=== PATIENT | male | born 1965 | race Caucasian/White ===

== ENCOUNTER 2016-05-21 04:46 | Inpatient (IN) | payer OTHER ==
[2016-05-21] MEDS ORDERED: SODIUM CHLORIDE 0.9% 1,000 ML IV ONE (05:20)
[2016-05-21] MEDS ORDERED: IV FLUID CONTINUATION 1,000 ML IV ONE (05:20)
[2016-05-21] MEDS ORDERED: MIDAZOLAM 2 MG/2 ML VIAL ONE (05:33)
[2016-05-21] MEDS ORDERED: LIDOCAINE 2% INJ 20 MG/ML (20 ML MDV) ONE (05:33)
[2016-05-21] MEDS ORDERED: diphenhydrAMINE 50 MG/ML 1 ML VIAL ONE (05:34)
[2016-05-21] MEDS ORDERED: diphenhydrAMINE 50 MG/ML 1 ML VIAL IVP ONE (05:36)
[2016-05-21] MEDS ORDERED: fentaNYL (PF) 50 MCG/ML 2 ML AMP ONE (05:36)
[2016-05-21] MEDS ORDERED: LIDOCAINE 2% INJ 20 MG/ML SQ ONE (05:37)
[2016-05-21] MEDS ORDERED: fentaNYL (PF) 50 MCG/ML 2 ML AMP IV ONE (05:37)
[2016-05-21] MEDS ORDERED: BIVALIRUDIN BOLUS 250 MG/50 ML IV ONE (05:42)
[2016-05-21] MEDS ORDERED: BIVALIRUDIN 250 MG in SODIUM CHLORIDE 0.9% 50 ML IV ONE (05:43)
[2016-05-21] MEDS ORDERED: PRASUGREL 10 MG TAB ONE (05:45)
[2016-05-21] MEDS ORDERED: PRASUGREL 10 MG TAB PO ONE (05:46)
[2016-05-21] MEDS ORDERED: IOHEXOL 350 MG/ML 100 ML BOTTLE INJ ONE (06:13)
[2016-05-21] MEDS ORDERED: NITROGLYCERIN SL TABS 0.4 MG TAB SUBLINGUAL PRN (06:38)
[2016-05-21] MEDS ORDERED: ZOLPIDEM 5 MG TAB PO PRN (06:38)
[2016-05-21] MEDS ORDERED: MAG HYDROX/AL HYDROX/SIMETH 30 ML CUP PO PRN (06:38)
[2016-05-21] MEDS ORDERED: RX INFO: IV CONTRAST WAS GIVEN 1 EACH MISC MISCELLANE PRN (06:38)
[2016-05-21] MEDS ORDERED: SODIUM CHLORIDE 0.9% 1,000 ML IV SCH (06:45)
[2016-05-21] MEDS ORDERED: LIDOCAINE URO-JET JELLY 2% 5 ML KIT ONE (07:40)
[2016-05-21 08:04] LABS: Glucose,Whole Blood 103 mg/dL (75-99)
[2016-05-21 09:10] LABS: Anion Gap 13 mmol/L; Blood Urea Nitrogen 7 mg/dL (9-20); Calcium 8.9 mg/dL (8.4-10.2); Carbon Dioxide 21 mmol/L (22-30); Chloride 109 mmol/L (98-107); Glucose 126 mg/dL (74-99); Non-African American GFR(MDRD) >60 (>60 ml/min/1.73 sqM); Potassium 4.1 mmol/L (3.5-5.1); Sodium 143 mmol/L (137-145)
[2016-05-21 09:29] LABS: Basophils % (A) 0 %; CH 30.9; CHCM 33.6; Eosinophils # (A) 0.1 k/uL (0-0.7); Eosinophils % (A) 1 %; HDW 2.71; HGB 17.1 gm/dL (13.0-17.5); Luc # (Auto) 0.16; Luc % (Auto) 2; Lymphocytes # (A) 2.2 k/uL (1.0-4.8); Lymphocytes % (A) 21 %; MCHC 33.5 g/dL (31.0-37.0); MCV 92.4 fL (80.0-100.0); Mean Platelet Volume 6.6; Monocytes # (A) 0.4 k/uL (0-1.0); Monocytes % (A) 3 %; Neutrophils # (A) 7.4 k/uL (1.3-7.7); Neutrophils % (A) 72 %; RBC 5.52 m/uL (4.30-5.90); RDW 14.3 % (11.5-15.5); WBC 10.3 k/uL (3.8-10.6); WBC (Perox) 10.52
[2016-05-21] MEDS: NICOTINE 21MG/24HR PATCH TRANSDERM SCH (11:17)
[2016-05-21] MEDS: METOPROLOL TARTRATE 25 MG TAB PO SCH ×2 (11:18→20:02)
[2016-05-21] MEDS: SPIRONOLACTONE 25 MG TAB PO SCH (11:18)
[2016-05-21] MEDS: LISINOPRIL 5 MG TAB PO SCH (11:18)
[2016-05-21] MEDS: ASPIRIN 325 MG TAB PO SCH (11:18)
--- NOTE | 2016-05-21 16:08 | CONS ---
DATE OF CONSULTATION: Mr. Ross is a 51-year-old male with known history of chronic tobacco use, history of hypertension and noncompliance who presented to the emergency room at [facility] with an episode of chest discomfort. Initially his EKG shows T wave inversion, subsequently had significant ST segment elevation anteriorly. In view of that, he was transferred to the hospital at [facility] to undergo emergent cardiac catheterization, coronary angioplasty and stenting. The patient has been having pain on and off for 4 days, much worse last night. He has associated dyspnea. He has no prior history of cardiac disease although he has not been followed by physician on a regular basis. He denies any PND, orthopnea or dizziness. No syncope. No palpitation. His coronary risk factors are remarkable for history of chronic tobacco use, prior history of hypertension, family history of premature coronary disease. He is nondiabetic. His lipid profile is not available. MEDICATION: He is taking no medication at home. SOCIAL HISTORY: He drinks caffeine, he smokes a pack a day. No alcohol intake. REVIEW OF SYSTEMS: RESPIRATORY SYSTEM: He denies any recent wheezing, cough. No history of documented asthma, emphysema GI system: No recent GI bleeding. No peptic ulcer disease. system: No dysuria or hematuria. Nervous system: No history of stroke or seizure. PHYSICAL EXAMINATION: He is a 51-year-old male, alert, oriented, in mild discomfort. Evaluated in the cardiac bundle tier and labeler. Blood pressure 143/90 with a heart rate in the 70s. HEAD: Normocephalic. EYES: Sclerae anicteric. NECK: No bruit. LUNGS: Clear to auscultation anteriorly. HEART: Regular rate and rhythm. S1, S2, no S3 with no rub or gallop. ABDOMEN: Soft, nontender, positive bowel sounds. No organomegaly. EXTREMITIES: No edema. Intact distal pulses. LAB DATA: Initial EKG at [facility] revealed sinus mechanism with left ventricular hypertrophy and T wave inversion from lead V2 through V6. Subsequent EKG showed significant ST segment elevation in the anterolateral leads. Potassium of 3.4. BUN and creatinine of 11 and 0.8. Hemoglobin of 17.7. Troponin of 0.350. IMPRESSION: 1. Acute ST segment elevation anteriorly. 2. History of chronic tobacco use. 3. Hypertension, not treated at this time. 4. Family history of premature coronary disease. RECOMMENDATION: In view of the findings and anatomy, I have recommended proceeding with coronary angiography and angioplasty and stenting if indicated. The rationale behind the procedure as well as risks and complications were discussed with the patient who is in full understanding and agreement. Thank you for this consult. We will follow with you
--- NOTE | 2016-05-21 18:24 | HP ---
DATE OF ADMISSION: CHIEF COMPLAINT: Chest pain. HISTORY OF PRESENT ILLNESS: This is a 51-year-old male with past medical history significant for uncontrolled hypertension, uncontrolled hyperlipidemia, ongoing tobacco abuse and history of heavy alcoholism a long time ago, presents to the hospital with new onset chest pain. Patient described the chest pain located to the mediastinum radiating to his left arm. Patient in the emergency was evaluated immediately with EKG which showed ST elevation. Dr. Montemayor was notified and patient was transferred from [facility] to [facility] and underwent immediate cardiac catheterization which showed 99% stenosis to the LAD and multivessel disease, LAD felt to be the culprit vessel and was stented by Dr. Montemayor and patient was transferred to the intensive care unit. Currently, the patient is denying chest pain, shortness breath, nausea, vomiting, abdominal pain, dizziness, lightheadedness, or blurry vision. Patient said that he has been away from the doctors for more than 5 years due to a lack of insurance. He is well known to have history of hypertension, hyperlipidemia, and was prescribed medication but he never took any medication or followed up with the doctors. The patient is well known to smoke more than 1 pack per day for a long time since age 16. Used to drink heavily every day and quit 5 years ago. Still smoking marijuana. Patient with well known family history of coronary artery disease in father, mother, brother and sister and they all had heart attacks according to his story. REVIEW OF SYSTEMS: All 14 systems reviewed and negative except as above. PAST MEDICAL HISTORY: 1. Hypertension. 2. Hyperlipidemia. 3. Tobacco dependency. 4. Diverticulosis. PAST SURGICAL HISTORY: None. FAMILY HISTORY: Father, mother, brother and sister with history of coronary artery disease. SOCIAL HISTORY: Smokes more than 1 pack per day. Smokes marijuana on every day basis. History of alcoholism, quit 5 years ago. HOME MEDICATIONS: None. ALLERGIES: No known drug allergies. PHYSICAL EXAMINATION: VITAL SIGNS: Currently temperature 97.9, heart rate of 82, respiratory rate 24, blood pressure 164/96 and saturation is 98% on 2 liters nasal cannula. HEENT: Atraumatic, normocephalic. PERRLA. NECK: Supple, no masses. No thyromegaly. LUNGS: Clear to auscultation bilaterally. HEART: S1, S2. ABDOMEN: Soft, no tenderness, positive bowel sounds in all 4 quadrants. Right groin seems to be intact after operation. EXTREMITIES: Lower extremity no edema. GENERAL: Seems to be, relaxed in no acute distress. Imaging and labs: As mentioned above including EKG and the troponin is slightly elevated at 0.867. Normal CBC. ASSESSMENT AND PLAN: 1. ST elevation myocardial infarction, status post cardiac catheterization with stent to the LAD. We will continue aspirin, Effient, beta eric and statin and optimize his medical management. 2. Hyperlipidemia. Will check on his LDL in the morning and continue statin. 3. Hypertension. Will optimize his medical management and goal is blood pressure less than 140/90. 4. Tobacco dependency. Patient counseled regarding smoking cessation strongly and he is agreeable and he wants to quit cold turkey. We will start nicotine patch now. 5. Marijuana abuse. Patient counseled regarding that and he is willing to quit as well. Patient counseled regarding following up with primary care physician outpatient for appropriate age screening and other work-up that needs to be done on outpatient. Prognosis is guarded. Systolic congestive heart failure with ejection for fraction of 40%. Patient will need multiple stage stenting and that will be determined by cardiology either inpatient or outpatient based on clinical progress.
--- NOTE | 2016-05-21 18:39 | CC ---
DATE OF SERVICE: Mr. Ross is a 51-year-old male who presented to the emergency room at [facility] with chest pain and had elevated elevation of his ST segment in the anterior leads. He was transferred to [facility] to undergo cardiac catheterization. The rationale behind the procedure as well as risks and complications were discussed with the patient who is in full understanding and agreement. PROCEDURE: Patient was brought to denture laboratory technician after receiving fentanyl and Benadryl. He was draped and prepped in conventional fashion using Xylocaine anesthesia and Seldinger technique, a 6 [place] Island[place] sheath was introduced in right femoral artery. Selective right and left coronary angiography were performed using 6 [place] Island[place], 4 bend FL4 guiding catheter. After obtaining images of the left coronary system and proceeding with angioplasty and stenting of the LAD, a 6 [place] right Anthony catheter was used to cannulate the right coronary artery. Images of the right coronary artery were performed. Following that, a 6 [place] tight pigtail catheter was introduced into the left ventricle and a 30 degree SPICER view of the left ventricle was obtained. Following that, catheter and sheath was removed. Hemostasis was obtained with deployment of an Angio-Seal. There was no immediate complications. Patient is returned to his room in stable condition. FINDINGS: LEFT MAIN: This is a large-size vessel bifurcating into the left circumflex, left anterior descending artery, left main coronary artery has no evidence of high-grade stenosis. LEFT ANTERIOR DESCENDING CORONARY ARTERY: Left anterior descending artery: This is a large-size vessel reaching toward the apex with a wrap around the apex segment giving rise to two diagonal branches of small caliber shortly after the takeoff of the first septal [facility] assisted [facility]. There is a very complex lesion with area stenosis of 99%. There is another plaque at the take off of the second diagonal branch and intimal disease of 30% to 40% in the mid and distal segment. LEFT CIRCUMFLEX: This is a large nondominant vessel, giving rise to 2 obtuse marginal branches. After the takeoff of the first obtuse marginal branch, there is a 60 70% plaque. The rest of the vessel has no high-grade stenosis. RIGHT CORONARY ARTERY: This is a dominant vessel, large in caliber, bifurcating distally in the PDA and posterolateral segment and branches. The right coronary artery is diffusely diseased, ectatic in the mid segment. In the distal segment, it is quite ectatic with diffuse lesion prior to the bifurcation of the PDA and PLV. There is a 99% stenosis. The PDA and PLV are small in caliber without any evidence of focal high-grade stenosis. LEFT VENTRICULOGRAM: Left ventriculogram was performed in 30 degrees SPICER view and revealed normal left ventricle size with anteroapical akinesis. The ejection fraction of 35% to 40%. There was no significant mitral regurgitation. HEMODYNAMICS: There was no gradient across the aortic valve. The left ventricular end-diastolic pressure was 24 to 28 mmHg. CONCLUSION: 1. Critical stenosis involving the proximal left anterior descending artery. 2. Significant stenosis in the distal right coronary artery with diffuse intimal disease as well as significant disease in the mid left circumflex. 3. Moderate to severely impaired left ventricular systolic function. RECOMMENDATIONS: In view of the findings and anatomy, I have recommended proceeding with angioplasty and stenting of the LAD. The rationale behind the procedure as well as risks and complications were discussed with the patient who is in full understanding and agreement.
--- NOTE | 2016-05-21 19:00 | CC ---
DATE OF SERVICE: Mr. Ross is a 51-year-old male with a known history of coronary artery disease, who presented with an acute anterior wall myocardial infarction. Underwent cardiac catheterization, was found to have critical stenosis involving the proximal left anterior scene artery. In view of that, recommendation was made regarding angioplasty and stenting. The procedure as well as risks and complications were discussed with the patient, in full understanding and agreement. PROCEDURE: Using the 6 Romansh FR4 guiding catheter after cannulating the left main, a 0.014 BMW wire was advanced across the lesion, positioned distally, then a 2.5 x 12 mm Trek balloon was advanced and one inflation 8 at 10 atmospheres was done. Following that the balloon was removed and a 3.0 by x 15 mm Resolute Integrity stent was deployed, was dilated at 14 atmospheres. Following that the balloon was removed and a 2.5 x 18 mm Xience Alpine stent was advanced distal to the first stent and deployed and was dilated at 14 atmospheres. Following that an inflation in the overlap segment at 16 atmospheres was done. Following that, the balloon was withdrawn back in the guiding catheter. Images were obtained and repeated. Those images reveal stable successful stenting. At that point, the guiding catheter taken out and the balloon and guidewire removed. Images of the right coronary artery and left ventriculogram was performed. Following that, catheter and sheaths were removed. Hemostasis was obtained with cuff and Angio-Seal. There were no immediate complication. Patient is returned to his room in stable condition. Of note, the patient had chest discomfort and EKG changes with inflations that improved at the end of the procedure. He received Angiomax per protocol as well as oral loading dose of Effient. RESULT: Successful stenting of the proximal left anterior descending artery with reduction in stenosis from 99% to 0%. RECOMMENDATIONS: Patient will be continued on aspirin, Effient, beta eric, CHRISTOFER inhibitor and statin. The importance of dual antiplatelet treatment were discussed with the patient and his family and they are in full consent and agreement. He will need to be re-evaluated regarding the need to undergo revascularization of the right coronary artery and the left circumflex. . EUGENIE
--- NOTE | 2016-05-21 19:05 | LTR ---
May 21, 2016 RE: Cody Ramírez Dear Dr. Lora: I had the pleasure to perform cardiac catheterization, coronary angioplasty and stenting on Mr. Ross at [facility] on the 21 of May. A full copy of the procedure note will be forwarded to you. In brief, he was found to have a subtotal occluded proximal LAD and underwent successful stenting of that vessel using 2 drug eluding stents. At the same time he was found to have significant obstructive disease involving the left circumflex and the right coronary artery and he will be further evaluated to undergo staged angioplasty. At this time I would recommend to continue medical therapy with dual antiplatelet treatment and depending on his progress, further recommendations will be made. Thank you again for allowing me to participate in this man's care . Please feel free to call for any questions. Sincerely, ELISABETH JOYNER MD
[2016-05-21] MEDS: ATORVASTATIN 80 MG TAB PO SCH (20:02)
[2016-05-22 07:56] LABS: Anion Gap 11 mmol/L; Blood Urea Nitrogen 8 mg/dL (9-20); Calcium 9.1 mg/dL (8.4-10.2); Carbon Dioxide 24 mmol/L (22-30); Chloride 107 mmol/L (98-107); Cholesterol 246 mg/dL (<200); Glucose 86 mg/dL (74-99); HDL Cholesterol 39 mg/dL (40-60); Non-African American GFR(MDRD) >60 (>60 ml/min/1.73 sqM); Potassium 4.2 mmol/L (3.5-5.1); Sodium 142 mmol/L (137-145); Triglycerides 157 mg/dL (<150)
[2016-05-22] MEDS: NICOTINE 21MG/24HR PATCH TRANSDERM SCH (09:25)
[2016-05-22] MEDS: METOPROLOL TARTRATE 25 MG TAB PO SCH ×2 (09:25→20:32)
[2016-05-22] MEDS: LISINOPRIL 5 MG TAB PO SCH (09:25)
[2016-05-22] MEDS: ASPIRIN 325 MG TAB PO SCH (09:25)
[2016-05-22] MEDS: PRASUGREL 10 MG TAB PO SCH (09:26)
[2016-05-22] MEDS: SPIRONOLACTONE 25 MG TAB PO SCH (09:26)
[2016-05-22 12:07] LABS: Glucose,Whole Blood 100 mg/dL (75-99)
--- NOTE | 2016-05-22 16:08 | PN ---
INTERVAL HISTORY: Patient continues to be hemodynamically stable overnight. No major events reported by nursing staff. Patient said that he feels much better than yesterday. Denying any chest pain, shortness breath, nausea, vomiting, abdominal pain, dizziness, or lightheadedness. Patient was ambulating in the room on his own. Tolerating diet without difficulty. PHYSICAL EXAMINATION: VITAL SIGNS: Reviewed and stable. LUNGS: Clear to auscultation bilaterally. HEART: Normal S1, S2. ABDOMEN: Soft, nontender. Positive bowel sounds in all four quadrants. EXTREMITIES: Lower extremity no edema. PSYCH: Alert, oriented x3. NEURO: No focal deficit. RIGHT GROIN: Seems to be healing with mild bruising. IMAGING AND LABS: Chem-7 showed normal findings. Troponin has gone up to 4.6 then found at 5.4. Lipid panel showed triglyceride 157, cholesterol 247, LDL 176, and HDL 39. ASSESSMENT AND PLAN: 1. ST elevation myocardial infarction, status post cardiac catheterization with stent to the left anterior descending with diffuse vessel disease. I discussed the case with Dr. Montemayor and later with the patient where the patient had reduced ejection fraction and felt to be good candidate for multistage stenting. The patient is agreeable. We will defer the final decision to Dr. Montemayor. Will continue cardioprotective medication as patient currently on aspirin, Effient, beta eric and statin. Blood pressure currently under control. The patient will be monitored closely. 2. Hyperlipidemia. We will continue with high-efficiency statin. Patient counseled regarding diet adherence and medication adherence as well. 3. Hypertension, fair control. We will continue current medication and goal for blood pressure less than 140/90. 4. Tobacco dependency. Patient said that he is not smoking this year and the rest of his life. 5. Systolic congestive heart failure, likely related to ischemic process. Stage stenting per Dr. Montemayor and we will repeat 2-D echo in 6 weeks. 6. Discharge planning based on clinical progress.
--- NOTE | 2016-05-22 16:29 | PN ---
Mr. Ross is a 51-year-old male who presented with acute anterior wall myocardial infarction, underwent stenting of the LAD was found to have significant disease in the right coronary artery in the left circumflex. He is doing quite well this morning. He has no symptoms of chest pain. His breathing has been stable. He denies any dizziness, palpitation. He denies any nausea. He continues to be at this time on aspirin once a day, Effient 10 mg daily, Lipitor 80 mg daily, Lisinopril 5 mg daily, metoprolol tartrate 25 mg twice a day, Aldactone 25 mg daily. PHYSICAL EXAMINATION: Blood pressure 128/60 with a heart in the 80s. LUNGS: Clear. HEART: Regular rate and rhythm. S1, S2, no S3, no rub. ABDOMEN: Soft, nontender. RIGHT GROIN: No hematoma. Lab data revealed a troponin peak of 5.4. BUN and creatinine of 8 and 1.1. Potassium 4.2. His cholesterol is 246 with an LDL of 176. EKG revealed sinus mechanism with T wave inversion anteriorly. IMPRESSION: 1. Status post inferior wall myocardial infarction and stenting of the left anterior descending. 2. Hyperlipidemia. 3. Ischemic cardiomyopathy. 4. Triple vessel coronary artery disease. 5. Chronic tobacco use. RECOMMENDATION: Will continue present therapy. Increase his level of activity and depending on his progress he will require revascularization of his right coronary artery, probably it will 48 hours. I have discussed those recommendations with the patient.
[2016-05-22] MEDS: ATORVASTATIN 80 MG TAB PO SCH (20:32)
[2016-05-22 20:59] LABS: Glucose,Whole Blood 122 mg/dL (75-99)
[2016-05-23 06:46] LABS: Anion Gap 11 mmol/L; Blood Urea Nitrogen 11 mg/dL (9-20); Calcium 9.1 mg/dL (8.4-10.2); Carbon Dioxide 23 mmol/L (22-30); Chloride 107 mmol/L (98-107); Glucose 94 mg/dL (74-99); Non-African American GFR(MDRD) >60 (>60 ml/min/1.73 sqM); Potassium 4.1 mmol/L (3.5-5.1); Sodium 141 mmol/L (137-145)
[2016-05-23] MEDS: NICOTINE 21MG/24HR PATCH TRANSDERM SCH (09:31)
[2016-05-23] MEDS: ASPIRIN 325 MG TAB PO SCH (09:31)
[2016-05-23] MEDS: PRASUGREL 10 MG TAB PO SCH (09:32)
[2016-05-23] MEDS: LISINOPRIL 5 MG TAB PO SCH (09:32)
[2016-05-23] MEDS: METOPROLOL TARTRATE 25 MG TAB PO SCH ×2 (09:32→20:47)
[2016-05-23] MEDS: SPIRONOLACTONE 25 MG TAB PO SCH (09:32)
[2016-05-23] MEDS ORDERED: LISINOPRIL 5 MG TAB PO ONE (09:45)
[2016-05-23] MEDS ORDERED: NITROGLYCERIN SL TABS 0.4 MG TAB SUBLINGUAL PRN (10:56)
[2016-05-23] MEDS ORDERED: SODIUM CHLORIDE 0.9% 1,000 ML in EMPTY BAG 1 BAG IV ONE (10:56)
[2016-05-23] MEDS ORDERED: ALPRAZolam 0.5 MG TAB PO PRN (10:56)
[2016-05-23] MEDS ORDERED: ASPIRIN 325 MG TAB PO STA (10:56)
[2016-05-23] MEDS ORDERED: ALPRAZolam 0.25 MG TAB PO PRN (10:56)
[2016-05-23] MEDS ORDERED: ATORVASTATIN 80 MG TAB PO STA (10:56)
--- NOTE | 2016-05-23 20:04 | PN ---
Mr. Ross is a 51-year-old male who presented with an acute anterior myocardial infarction, underwent stenting of the LAD, was found to have significant obstructive disease in the right coronary artery. He is doing well this morning. He is denying any chest pain. His breathing is stable. He denies any dizziness. No palpitation. No nausea. He is ambulating without difficulty. Continued on aspirin once a day, Lipitor 80 mg daily, Zestril 10 mg daily, metoprolol titrate 25 mg twice a day, Effient 10 mg daily, Aldactone 25 mg daily. PHYSICAL EXAMINATION: Blood pressure 132/80 with a heart in the 70s. LUNGS: Clear. HEART: Regular rate and rhythm. S1, S2, no S3, no rub. ABDOMEN: Soft, nontender. EXTREMITIES: No edema. Lab data revealed BUN and creatinine 11 and 0.9. Potassium 4.1. IMPRESSION: 1. Status post anterior myocardial infarction and stenting of the left anterior descending. 2. Significant obstructive disease in the right coronary artery. 3. Hypertension. 4. Hyperlipidemia. 5. Chronic tobacco use. RECOMMENDATIONS: Will continue current therapy. Proceed with an angioplasty of the right coronary artery tomorrow and depending on his progress, further recommendation will be made.
[2016-05-23] MEDS: ATORVASTATIN 80 MG TAB PO SCH (20:47)
[2016-05-24] MEDS: METOPROLOL TARTRATE 25 MG TAB PO SCH ×2 (06:35→21:47)
[2016-05-24] MEDS: ASPIRIN 325 MG TAB PO SCH (06:35)
[2016-05-24] MEDS: NICOTINE 21MG/24HR PATCH TRANSDERM SCH (06:36)
[2016-05-24] MEDS: LISINOPRIL 10 MG TAB PO SCH (06:36)
[2016-05-24] MEDS: PRASUGREL 10 MG TAB PO SCH (06:36)
--- NOTE | 2016-05-24 07:15 | PN ---
INTERVAL HISTORY: Patient continued to be hemodynamically stable, no major events reported by nursing staff. Patient currently is denying chest pain, shortness breath, nausea, vomiting, dizziness, lightheadedness, or blurry vision. PHYSICAL EXAMINATION: Vital signs are reviewed and stable. Lungs clear to auscultation bilaterally. HEART: S1, S2. ABDOMEN: Soft, nontender, positive bowel sounds in upper quadrant. LOWER EXTREMITIES: No edema. PSYCH: Alert and oriented x3. IMAGING AND LABS: Chem-7 revealed normal findings, glucose 122. Hemoglobin A1c was found to be 5.0. ASSESSMENT AND PLAN: 1. ST elevation myocardial infarction positive for severe multivessel disease. Patient will be continued on aspirin and statin and beta eric and will undergo another cardiac catheterization in the morning by Dr. Montemayor for stage stenting. Patient is agreeable, understands risks and benefits and willing to take the procedure. 2. Systolic congestive heart failure with ejection fraction of 40%. Patient seems to be compensated at this point. Will continue cardioprotective medication as above. 3. Hypertension, slightly elevated. I would like to increase the lisinopril to 10 mg p.o. daily, give second dose of lisinopril 5 now and 10 mg in the morning. Discussed with Dr. Montemayor this morning. 4. Hyperlipidemia, continue statin. 5. Tobacco dependency. Continue counseling patient regarding cessation. 6. Discharge planning based on clinical progress.
[2016-05-24] MEDS ORDERED: LIDOCAINE 2% INJ 20 MG/ML (20 ML MDV) ONE ×2 (07:21→07:57)
[2016-05-24] MEDS ORDERED: fentaNYL (PF) 50 MCG/ML 2 ML AMP ONE (07:21)
[2016-05-24] MEDS ORDERED: diphenhydrAMINE 50 MG/ML 1 ML VIAL ONE (07:21)
[2016-05-24] MEDS ORDERED: SODIUM CHLORIDE 0.9% (PF) 10 ML VIAL ONE (07:38)
[2016-05-24] MEDS ORDERED: VERAPAMIL 2.5 MG/ML 2 ML AMP ONE (07:38)
[2016-05-24] MEDS ORDERED: SODIUM CHLORIDE 0.9% 1,000 ML IV ONE (07:45)
[2016-05-24] MEDS ORDERED: diphenhydrAMINE 50 MG/ML 1 ML VIAL IVP ONE (07:46)
[2016-05-24] MEDS ORDERED: fentaNYL (PF) 50 MCG/ML 2 ML AMP IV ONE (07:47)
[2016-05-24] MEDS ORDERED: LIDOCAINE 2% INJ 20 MG/ML SQ ONE ×2 (07:48→07:57)
[2016-05-24] MEDS ORDERED: NITROGLYCERIN SL TABS 0.4 MG TAB SUBLINGUAL ONE ×2 (07:52→07:53)
[2016-05-24] MEDS ORDERED: BIVALIRUDIN BOLUS 250 MG/50 ML IV ONE (07:59)
[2016-05-24] MEDS ORDERED: BIVALIRUDIN 250 MG in SODIUM CHLORIDE 0.9% 50 ML IV ONE (08:01)
[2016-05-24] MEDS ORDERED: NITROGLYCERIN 1000MCG/10ML SYRINGE INTRACORON ONE (08:05)
[2016-05-24] MEDS ORDERED: IOHEXOL 350 MG/ML 100 ML BOTTLE INJ ONE (08:24)
[2016-05-24] MEDS ORDERED: MAG HYDROX/AL HYDROX/SIMETH 30 ML CUP PO PRN (08:26)
[2016-05-24] MEDS ORDERED: RX INFO: IV CONTRAST WAS GIVEN 1 EACH MISC MISCELLANE PRN (08:26)
[2016-05-24] MEDS ORDERED: ZOLPIDEM 5 MG TAB PO PRN (08:26)
[2016-05-24] MEDS ORDERED: NITROGLYCERIN SL TABS 0.4 MG TAB SUBLINGUAL PRN (08:26)
[2016-05-24] MEDS ORDERED: SODIUM CHLORIDE 0.9% 1,000 ML IV SCH (08:30)
[2016-05-24] MEDS: SPIRONOLACTONE 25 MG TAB PO SCH (08:56)
[2016-05-24] MEDS: amLODIPine 5 MG TAB PO STA ×2 (09:56→09:57)
[2016-05-24] MEDS ORDERED: ATROPINE SULFATE 0.1 MG/ML 10ML SYRINGE ONE (11:27)
[2016-05-24] MEDS ORDERED: METOPROLOL TARTRATE 5 MG/5 ML VIAL IVP STA (11:33)
--- NOTE | 2016-05-24 11:34 | ECHOF ---
Referral Reason:nv MEASUREMENTS -------- HEIGHT: 172.7 cm WEIGHT: 82.1 kg BP: 172/96 RVIDd: 3.3 cm (< 3.3) IVSd: 1.4 cm (0.6 - 1.1) LVIDd: 5.8 cm (3.9 - 5.3) LVPWd: 1.2 cm (0.6 - 1.1) IVSs: 1.7 cm LVIDs: 4.2 cm LVPWs: 1.8 cm LA Diam: 3.8 cm (2.7 - 3.8) LAESV Index (A-L): 26.93 ml/m Ao Diam: 3.8 cm (2.0 - 3.7) AV Cusp: 2.2 cm (1.5 - 2.6) MV EXCURSION: 12.148 mm (> 18.000) MV EF SLOPE: 70 mm/s (70 - 150) EPSS: 1.0 cm MV E Perry: 0.84 m/s MV DecT: 194 ms MV A Perry: 0.76 m/s MV E/A Ratio: 1.10 FINDINGS -------- Sinus rhythm. This was a technically good study. The left ventricular size is normal. There is moderate concentric left ventricular hypertrophy. Overall left ventricular systolic function is mild-moderately impaired with, an EF between 40 - 45 %. Apical inferior LV wall motion is hypokinetic. Apical septum LV wall motion is hypokinetic. The right ventricle is mildly enlarged. The left atrium is normal in size. Normal LA size by volume 22+/-6 ml/m2. The right atrium is normal in size. The aortic valve is trileaflet, and appears structurally normal. No aortic stenosis or regurgitation. Mild mitral annular calcification present. The tricuspid valve appears structurally normal. No regurgitation noted The pulmonic valve is normal. There is no pulmonic regurgitation present. The aortic root is dilated measuring 3.8cm. Normal inferior vena cava with normal inspiratory collapse consistent with estimated right atrial pressure of 5 mmHg. There is no pericardial effusion. CONCLUSIONS -------- 1. Sinus rhythm. 2. The right atrium is normal in size. 3. The aortic valve is trileaflet, and appears structurally normal. No aortic stenosis or regurgitation. 4. Mild mitral annular calcification present. 5. The pulmonic valve is normal. 6. The aortic root is dilated measuring 3.8cm. 7. Normal inferior vena cava with normal inspiratory collapse consistent with estimated right atrial pressure of 5 mmHg. 8. There is no pericardial effusion. 9. This was a technically good study. 10. The left ventricular size is normal. 11. There is moderate concentric left ventricular hypertrophy. 12. Overall left ventricular systolic function is mild-moderately impaired with, an EF between 40 - 45 %. 13. Apical inferior LV wall motion is hypokinetic. 14. Apical septum LV wall motion is hypokinetic. 15. The right ventricle is mildly enlarged. 16. Normal LA size by volume 22+/-6 ml/m2. DELIVERY DRIVER/CUSTOMER SERVICE: Yojana Lai RDCS
[2016-05-24] MEDS ORDERED: HYDROmorphone 1 MG/ML 1 ML SYRINGE IVP STA ×2 (11:39→15:13)
--- NOTE | 2016-05-24 15:23 | PTCA ---
DATE OF SERVICE: Mr. Ross is a 51-year-old male with known history of chronic tobacco use, who presented 3 days ago with an acute anterior myocardial infarction, underwent cardiac catheterization, coronary angioplasty and stenting of the LAD. At that time was found to have critical stenosis involving the distal right coronary artery and his diffusely ectatic vessel. In view of that, recommendation was made regarding angioplasty and stenting. The procedure as well as risks and complications were discussed with the patient who was in full understanding and agreement. PROCEDURE: Patient was brought to the [facility] in fasting semi state after fentanyl and Benadryl. He was draped and prepped in conventional fashion. Using Xylocaine anesthesia and Seldinger technique, a 6 Bahamian sheath was introduced in left femoral artery. A 6 Bahamian 4 bend left Anthony catheter introduced into the system. Images of the left anterior descending artery were performed. Following that, a 6 Bahamian FR4 guiding catheter introduced into the system. After cannulating the right coronary ostium, a 0.014 balanced medium weight J-wire was advanced across the lesion, positioned distally. Then a 2.5 x 12 mm Euphora balloon was advanced, one inflation 10 atmosphere was done. Following that, a 2.5 x 15 mm Xience Alpine stent was deployed, postdilated at 14 atmospheres. After the last inflation, after appropriate wait, the balloon the guidewire were withdrawn back in the guiding catheter. Images were obtained and repeated. Those images reveal stable successful stenting. At that point, the guiding catheter, balloon and the guidewire wire were removed. The sheaths were sutured in place. The patient is returned to his room in stable condition. Of note, the patient had no significant chest discomfort with the inflation with minimal EKG changes. He received Angiomax per protocol. RESULTS: 1. Patent stent of the left anterior descending. 2. Moderate disease in the second obtuse marginal branch of 50%. 3. Successful stenting of the distal right coronary artery in a diffusely ectatic vessel with reduction in stenosis from 99% to 0%. RECOMMENDATION: Patient will be continued on aspirin, Effient, beta eric, CHRISTOFER inhibitor and statin. The importance of dual antiplatelet treatment were discussed with the patient and his family who are in full understanding and agreement.
--- NOTE | 2016-05-24 15:27 | LTR ---
May 24, 2016 RE: Ramírez Ross Dear Dr. Lora: I had the pleasure of performing coronary angioplasty and stenting on Mr. Ross at [facility] on May 24, 2016 and full copy of procedure note will be forwarded to you. In brief, he underwent successful stenting of the distal right coronary artery using a drug-eluting stent. At this time I will continue present medical therapy with aggressive risk modification being initiated. Thank you again for allowing me to participate in his care. Please feel free to call for any questions. Sincerely, ELISABETH JOYNER MD
[2016-05-24] MEDS ORDERED: CALCIUM CARBONATE 500 MG CHEWABLE PO PRN (19:20)
[2016-05-24] MEDS: ATORVASTATIN 80 MG TAB PO SCH (21:47)
[2016-05-25 04:49] VITALS: PULSE 80; RESP 18; TEMP 97.2
[2016-05-25 06:45] LABS: Anion Gap 12 mmol/L; Blood Urea Nitrogen 8 mg/dL (9-20); Carbon Dioxide 24 mmol/L (22-30); Chloride 106 mmol/L (98-107); Glucose 88 mg/dL (74-99); Non-African American GFR(MDRD) >60 (>60 ml/min/1.73 sqM); Potassium 4.3 mmol/L (3.5-5.1); Sodium 142 mmol/L (137-145)
--- NOTE | 2016-05-25 07:09 | PN ---
INTERVAL HISTORY: Ramírez had just come back from the [facility] after receiving stent to the RCA. Patient currently is denying chest pain, shortness of breath, nausea, vomiting, abdominal pain, dizziness, lightheadedness but still is lethargic after the conscious sedation. Physical examination revealed stable vital signs. LUNGS: Clear to auscultation bilaterally. HEART: S1, S2. ABDOMEN: Soft, nontender, positive bowel sounds in the left lower quadrant. LOWER EXTREMITY: No edema. IMAGING AND LABS: Reviewed. ASSESSMENT AND PLAN: 1. ST elevation myocardial infarction, status post cardiac catheterization with stent placement. 2. Multivessel coronary artery disease with staged stenting, second stent placed today by Dr. Montemayor. Patient will be monitored over the next 24 hours. If patient stated to be hemodynamically stable, consider discharging patient in the morning. Patient will be maintained on aspirin, Effient, beta eric and statin. 3. Hypertension, appears to be under fair control. 4. Hyperlipidemia. Will continue statin.
[2016-05-25] MEDS: NICOTINE 21MG/24HR PATCH TRANSDERM SCH (08:17)
[2016-05-25] MEDS: METOPROLOL TARTRATE 25 MG TAB PO SCH (08:17)
[2016-05-25] MEDS: SPIRONOLACTONE 25 MG TAB PO SCH (08:17)
[2016-05-25] MEDS: LISINOPRIL 10 MG TAB PO SCH (08:17)
[2016-05-25] MEDS: ASPIRIN 325 MG TAB PO SCH (08:17)
[2016-05-25] MEDS: PRASUGREL 10 MG TAB PO SCH (08:28)
[2016-05-25 09:12] VITALS: BP 155/92
--- NOTE | 2016-05-25 16:57 | PN ---
Mr. Ross is a 51-year-old male who presented with an acute antral wall myocardial infarction, underwent stenting of the LAD, was found to have significant obstructive disease in right coronary artery and underwent stenting of the right coronary artery in a staged procedure. He is doing well this morning, ambulating without difficulty. Denies any chest pain. His breathing has been stable. He denies any dizziness or palpitation. No nausea. He continues to be on aspirin once a day, Effient 10 mg daily, Lopressor 25 mg twice a day, lisinopril 10 mg daily, Aldactone 25 mg daily, and Lipitor 80 mg daily. PHYSICAL EXAMINATION: Blood pressure 139/70 with a heart in the 70s. LUNGS: Clear. HEART: Regular rate and rhythm. S1, S2. No S3, no rub. ABDOMEN: Soft, nontender. EXTREMITIES: No edema. LEFT GROIN: No hematoma. Lab data revealed BUN and creatinine of 8 and 0.94. EKG revealed T wave inversion anteriorly. His echocardiogram revealed mildly to moderately impaired left ventricular systolic function with segmental wall motion abnormalities consistent with his acute myocardial infarction in the antral wall. IMPRESSION: 1. Status post antral wall myocardial infarction, ST segment elevation and stenting of the left anterior descending. 2. Stenting of the right coronary artery. 3. History of hyperlipidemia. 4. Chronic tobacco use. RECOMMENDATIONS: Patient should be able to be discharged home today and followed as outpatient.
--- NOTE | 2016-05-26 08:24 | P.DS ---
Providers Date of admission: 05/21/16 05:23 Expected date of discharge: 05/25/16 Attending physician: Meek Hinds Consults: 05/24/16 08:26 Consult Physician Routine Consulting Provider: Jaky Mc Consult Reason/Comments: Post Interventional patient Do you want consulting provider notified?: Already Contacted 05/21/16 06:38 Consult Physician Routine Consulting Provider: Cardiology Alexandro Consult Reason/Comments: Post Interventional patient Do you want consulting provider notified?: Already Contacted Primary care physician: Mona Lora [facility] Course: Discharge diagnoses: Discharge plan: Return home Impression and plan of care have been directed as dictated by the signing physician. Patricia Da Silva nurse practitioner acting as scribe for signing physician. Cc: Dr. Mona Lora Pertinent Studies: 51-year-old male. His primary care physician is Dr. Mona Lora. He has a past medical history of uncontrolled, uncontrolled hyperlipidemia hypertension and noncompliance and tobacco use and dependence and heavy alcohol use and quit 5 years ago, marijuana use. Patient initially presented to [facility] with complaints of chest pain and his initial EKG showed T-wave inversion and subsequently significant ST segment elevation anteriorly. He was transferred to [facility] for an emergent cardiac catheterization and coronary angioplasty and stenting. Patient apparently was having mediastinal chest pain radiating to the left arm pain on and off for 4 days which worsened in the last night. He also had shortness of breath. Patient underwent heart catheterization which showed a 99% stenosis of the LAD and multivessel disease with significant stenosis of the distal right coronary artery with diffuse intimal disease and significant disease in the mid left circumflex. LAD was felt to be the culprit and was stented by Dr. Montemayor patient was transferred to the intensive care unit. Patient was started on Effient, Lipitor, aspirin, lisinopril, metoprolol and Aldactone. Patient was hemodynamically stable and transferred to the selective care unit. Echocardiogram revealed moderate left ventricular hypertrophy, EF 40-45%. He went back to the [facility] on May [address] Montemayor underwent successful stenting of the distal right coronary artery. Patient was monitored overnight and was then discharged home in stable condition., Smoking cessation was discussed with the patient in detail. Triglycerides 157, cholesterol 246, LDL 176, HDL 39. Discharge diagnoses: 1. Acute anterior wall ST elevated myocardial infarction with ischemic cardiomyopathy and triple-vessel coronary artery disease 2. Tobacco use and dependence 4. Hypertension 5. Hyperlipidemia 6. Marijuana abuse 7. History of alcohol abuse, sober 5 years Discharge plan: Return home Impression and plan of care have been directed as dictated by the signing physician. Patircia Da Silva nurse practitioner acting as scribe for signing physician. Cc Dr. Mona Lora Patient Condition at Discharge: Good Plan - Discharge Summary New Discharge Prescriptions: Atorvastatin [Lipitor] 80 mg PO HS #90 tab Lisinopril [Zestril] 10 mg PO DAILY #90 tab Metoprolol Tartrate [Lopressor] 25 mg PO BID #180 tab Nicotine 21Mg/24Hr Patch [Habitrol] 1 patch TRANSDERM DAILY #30 patch Nitroglycerin Sl Tabs [Nitrostat] 0.4 mg SUBLINGUAL Q5M PRN #25 tab PRN Reason: Chest Pain Prasugrel [Effient] 10 mg PO DAILY #90 tab Spironolactone [Aldactone] 25 mg PO DAILY #90 tab Discharge Medication List Aspirin 325 mg PO DAILY tab 05/25/16 [Rx] Atorvastatin [Lipitor] 80 mg PO HS #90 tab 05/25/16 [Rx] Lisinopril [Zestril] 10 mg PO DAILY #90 tab 05/25/16 [Rx] Metoprolol Tartrate [Lopressor] 25 mg PO BID #180 tab 05/25/16 [Rx] Nicotine 21Mg/24Hr Patch [Habitrol] 1 patch TRANSDERM DAILY #30 patch 05/25/16 [ Rx] Nitroglycerin Sl Tabs [Nitrostat] 0.4 mg SUBLINGUAL Q5M PRN #25 tab 05/25/16 [Rx ] Prasugrel [Effient] 10 mg PO DAILY #90 tab 05/25/16 [Rx] Spironolactone [Aldactone] 25 mg PO DAILY #90 tab 05/25/16 [Rx] Follow up Appointment(s)/Referral(s): Mona Lora MD [Primary Care Provider] - 06/02/16 7:00 am Mag Montemayor MD [STAFF PHYSICIAN] - 1 Week (office will call with appointment date and time) Patient Instructions/Handouts: After Heart Catheterization - [facility] Discharge Disposition: HOME SELF-CARE
== END 2016-05-25 10:54 | disposition home or self-care (01) | DRG 247 ==
LOC: EDSTATUS 05:18 → 6SEL 05:23 → 6ICU 06:39 → 6SEL 23:34
PROVIDERS: ADMIT Internal Medicine Interventional Cardiology; ATTEND Internal Medicine Geriatric Medicine
PROC: 027034Z Dilation of Coronary Artery, One Artery with Drug-eluting Intraluminal Device, Percutaneous Approach (ICD-10-PCS; principal; 2016-05-21 05:05)
PROC: B2151ZZ Fluoroscopy of Left Heart using Low Osmolar Contrast (ICD-10-PCS; principal; 2016-05-21 05:05)
PROC: B2111ZZ Fluoroscopy of Multiple Coronary Arteries using Low Osmolar Contrast (ICD-10-PCS; principal; 2016-05-21 05:05)
PROC: 4A023N7 Measurement of Cardiac Sampling and Pressure, Left Heart, Percutaneous Approach (ICD-10-PCS; principal; 2016-05-21 05:05)
DX: I21.09 ST elevation (STEMI) myocardial infarction involving other coronary artery of anterior wall (principal); I11.0 Hypertensive heart disease with heart failure; I50.22 Chronic systolic (congestive) heart failure; E78.5 Hyperlipidemia, unspecified; F10.21 Alcohol dependence, in remission; F12.10 Cannabis abuse, uncomplicated; I25.10 Atherosclerotic heart disease of native coronary artery without angina pectoris; I25.5 Ischemic cardiomyopathy; Z79.82 Long term (current) use of aspirin; Z82.49 Family history of ischemic heart disease and other diseases of the circulatory system; Z91.19 Patient's noncompliance with other medical treatment and regimen; Z72.0 Tobacco use
CPT/HCPCS: 80048; 80061; 83036; 83735; 84484; 85025; 93306; 93454; 93458; 94760

== ENCOUNTER 2017-11-27 13:47 | Inpatient (IN) | payer OTHER ==
[2017-11-27] MEDS ORDERED: ASPIRIN 81 MG PO STA (14:19)
[2017-11-27] MEDS ORDERED: NITROGLYCERIN OINT 1 INCH/GM PACKET TOPICAL STA (14:19)
[2017-11-27] MEDS ORDERED: ONDANSETRON 4 MG/2 ML VIAL IVP STA (14:19)
[2017-11-27] MEDS ORDERED: SODIUM CHLORIDE 0.9% 1,000 ML IV STA (14:19)
[2017-11-27] MEDS ORDERED: MORPHINE SULFATE 2 MG/ML SYRINGE IV STA (14:19)
[2017-11-27] MEDS ORDERED: SODIUM CHLORIDE 0.9% 500 ML IV STA (14:19)
[2017-11-27 14:34] LABS: Anisocytosis Slight; Basophils % (A) 1 %; Eosinophils # (A) 0.2 k/uL (0-0.7); Eosinophils % (A) 4 %; HCT 38.9 % (39.0-53.0); HGB 12.2 gm/dL (13.0-17.5); Hypochromasia Moderate; Lymphocytes # (A) 1.7 k/uL (1.0-4.8); Lymphocytes % (A) 27 %; MCH 26.6 pg (25.0-35.0); MCHC 31.4 g/dL (31.0-37.0); MCV 84.6 fL (80.0-100.0); Mean Platelet Volume 6.2; Monocytes # (A) 0.5 k/uL (0-1.0); Monocytes % (A) 8 %; Neutrophils # (A) 3.8 k/uL (1.3-7.7); Neutrophils % (A) 60 %; Platelet Count 402 k/uL (150-450); Poikilocytosis Slight; RBC 4.59 m/uL (4.30-5.90); RDW 16.5 % (11.5-15.5); WBC 6.3 k/uL (3.8-10.6)
--- NOTE | 2017-11-27 14:48 | XR ---
EXAMINATION TYPE: XR chest 2V DATE OF EXAM: 11/27/2017 COMPARISON: 03/28/2017 HISTORY: Midsternal chest pain, shortness of breath and bilateral arm numbness. TECHNIQUE: Frontal and lateral views of the chest are obtained. FINDINGS: There is no focal air space opacity, pleural effusion, or pneumothorax seen. The cardiac silhouette size is within normal limits. The osseous structures are intact. Moderate hiatal hernia is redemonstrated. Degenerative changes of the glenohumeral joints, chromic clavicular joints and tho racic spine are similar to the prior. IMPRESSION: No acute cardiopulmonary process. Moderate hiatal hernia.
[2017-11-27 14:54] LABS: D-Dimer 0.3 mg/L FEU (<0.60); Partial Thromboplastin Time 23.2 sec (22.0-30.0); Prothrombin Time 10.1 sec (9.0-12.0)
[2017-11-27 14:56] LABS: ALT 28 U/L (21-72); AST 27 U/L (17-59); Albumin 3.5 g/dL (3.5-5.0); Alkaline Phosphatase 116 U/L (38-126); Anion Gap 11 mmol/L; Blood Urea Nitrogen 5 mg/dL (9-20); Calcium 8.8 mg/dL (8.4-10.2); Carbon Dioxide 23 mmol/L (22-30); Chloride 104 mmol/L (98-107); Glucose 112 mg/dL (74-99); Potassium 4.1 mmol/L (3.5-5.1); Sodium 138 mmol/L (137-145); Total Bilirubin 0.4 mg/dL (0.2-1.3); Total Protein 5.9 g/dL (6.3-8.2)
[2017-11-27 15:12] LABS: Creatine Kinase MB 0.6 ng/mL (0.0-2.4)
[2017-11-27 15:16] LABS: Troponin I 0.069 ng/mL (0.000-0.034)
[2017-11-27] MEDS ORDERED: HEPARIN SODIUM,PORCINE 5,000 UNIT/ML 1 ML VIAL IV ONE (15:50)
[2017-11-27] MEDS ORDERED: NITROGLYCERIN SL TABS 0.4 MG TAB SUBLINGUAL PRN ×2 (15:50→15:57)
[2017-11-27] MEDS ORDERED: MORPHINE SULFATE 2 MG/ML SYRINGE IV PRN (15:50)
--- NOTE | 2017-11-27 15:50 | ED ---
Chest Pain HPI - General Chief Complaint: Chest Pain Stated Complaint: Chest Pain Time Seen by Provider: 11/27/17 14:15 Source: patient Mode of arrival: wheelchair Limitations: no limitations - History of Present Illness Initial Comments: 82 years old male with history of heart disease has a [address] has a chest pain off and on for 2 days, he has a multiple risk factors and existing ischemic heart disease. At this point is 6/10 he got nauseous he didn't throw up" sweats and is also short winded - Related Data Home Medications Medication Instructions Recorded Confirmed Lisinopril [Zestril] 20 mg PO DAILY 03/17/17 11/27/17 Metoprolol Tartrate [Lopressor] 50 mg PO BID 03/17/17 11/27/17 Aspirin EC [Ecotrin Low Dose] 81 mg PO DAILY 11/27/17 11/27/17 Pantoprazole Sodium [Protonix] 40 mg PO DAILY 11/27/17 11/27/17 Sennosides [Senna] 8.6 mg PO DAILY PRN 11/27/17 11/27/17 amLODIPine [Norvasc] 5 mg PO DAILY 11/27/17 11/27/17 Previous Rx's Medication Instructions Recorded Nitroglycerin Sl Tabs [Nitrostat] 0.4 mg SUBLINGUAL Q5M PRN #25 tab 05/25/16 Spironolactone [Aldactone] 25 mg PO DAILY #90 tab 05/25/16 Allergies Allergy/AdvReac Type Severity Reaction Status Date / Time No Known Allergies Allergy Verified 11/27/17 14:50 Review of Systems ROS Statement: Those systems with pertinent positive or pertinent negative responses have been documented in the HPI. ROS Other: All systems not noted in ROS Statement are negative. EKG Findings - EKG Comments: EKG Findings:: EKG is a normal sinus ventricular rate 72 TN interval is 146 QRS duration is 82 QT/QTC 380/448 noticed T-wave inverted and S2 depression in now 1 and [address] and [address] depression in V4 V5 and V6 Past Medical History Past Medical History: Coronary Artery Disease (CAD), Hyperlipidemia, Hypertension, Myocardial Infarction ([place]), Osteoarthritis (OA) Additional Past Medical History / Comment(s): Hypertension, coronary artery disease, hyperlipidemia, alcoholism, smoker, previous history of rectal abscess , diverticular disease/diverticulitis Last Myocardial Infarction Date:: 05/21/2016 History of Any Multi-Drug Resistant Organisms: None Reported Past Surgical History: Heart Catheterization With Stent Additional Past Surgical History / Comment(s): surg. for diverticulitis, bowel reconstruction - colostomy and reversal Past Anesthesia/Blood Transfusion Reactions: No Reported Reaction Date of Last Stent Placement:: 05-22-16 Past Psychological History: No Psychological Hx Reported Smoking Status: Current every day smoker Past Alcohol Use History: None Reported Past Drug Use History: None Reported - Past Family History Mother Sister(s) Family Medical History: Cancer Brother(s) Family Medical History: Cancer (Colon cancer 2 brothers), Osteoarthritis (OA) Additional Family Medical History / Comment(s): colon Mother Family Medical History: Cancer (colon Cancer in her 80s) Father Family Medical History: Coronary Artery Disease (CAD) Sister(s) Family Medical History: Cancer (GI cancer), COPD, Osteoarthritis (OA) General Exam Limitations: no limitations Course Vital Signs 11/27/17 11/27/17 14:02 14:36 Temperature 98.0 F Pulse Rate 97 89 Respiratory 18 18 Rate Blood Pressure 135/91 118/76 O2 Sat by Pulse 98 98 Oximetry Critical Care Time Total Critical Care Time: 45 Critical Care Time: She was reviewed, noticed ST depression noticed in now 0.2 and aVF and V4 V5 and V6 blood work was expedited he be admitted to the hospital with the acute coronary syndrome he be getting aspirin and Plavix as well as heparin soft cardiology. If pain is resolved now if it occurs Picolinate some make some unstable angina probably would need a sooner cardiac cath then later Disposition Clinical Impression: Elevated troponin, Chest pain, History of ischemic heart disease Disposition: ADMITTED IP TO THIS HOSP Condition: Good Referrals: Mona Lora MD [Primary Care Provider] - 1-2 days
[2017-11-27] MEDS ORDERED: SENNOSIDES 8.6 MG TAB PO PRN (15:57)
[2017-11-27] MEDS ORDERED: HEPARIN SOD,PORK IN 0.45% NACL 25,000 UNIT in 0.45% NACL 1 500ML.BAG IV SCH (16:00)
[2017-11-27] MEDS ORDERED: NITROGLYCERIN-D5W PMX 50 MG in DEXTROSE/WATER 1 250ML.BAG IV SCH (16:30)
[2017-11-27] MEDS ORDERED: SODIUM CHLORIDE 0.9% 1,000 ML IV ONE (16:56)
--- NOTE | 2017-11-27 17:24 | P.CRDCN ---
History of Present Illness Consult date: 11/27/17 Chief complaint: Chest discomfort History of present illness: This is a pleasant 52-year-old gentleman who sees Dr. Montemayor in the office as an outpatient with a past medical history significant for coronary artery disease where the patient underwent stenting of the LAD in May 2016 in the setting of acute anterior ST elevation [place], as subsequently stenting of the RCA. He is also known to have intermediate disease involving the left circumflex. Unfortunately he continues to smoke. He was in his usual state of health until yesterday when he was sitting at home and started experiencing chest discomfort as a dull kind of discomfort in the mid of the chest with numbness in the right hand. No shortness of breath. No sweating. No nausea vomiting, and no syncope. The patient took nitroglycerin yesterday was improvement in his symptoms. Today when he was in the car with his he developed another episode of chest discomfort with similar characteristic to the episodes from yesterday and this point she took 3 nitroglycerin without any improvement in the symptoms and because of that he presented to the emergency room. The chest discomfort was around 9/10 in intensity when he presented to the emergency room and after he was started on heparin drip the discomfort has subsided to about 4- 5/10 in intensity's. The EKG showed sinus rhythm with ST changes in the lateral leads. The first set of troponin came in to be slightly abnormal. The chest x-ray did not show any acute abnormalities. The patient underwent an echocardiogram in February 2017 when he was admitted to the hospital with small bowel obstruction and the echocardiogram revealed normal LV function without any significant valvular abnormalities. Past Medical History Past Medical History: Coronary Artery Disease (CAD), Hyperlipidemia, Hypertension, Myocardial Infarction ([place]), Osteoarthritis (OA) Additional Past Medical History / Comment(s): Hypertension, coronary artery disease, hyperlipidemia, alcoholism, smoker, previous history of rectal abscess , diverticular disease/diverticulitis Last Myocardial Infarction Date:: 05/21/2016 History of Any Multi-Drug Resistant Organisms: None Reported Past Surgical History: Heart Catheterization With Stent Additional Past Surgical History / Comment(s): surg. for diverticulitis, bowel reconstruction - colostomy and reversal Past Anesthesia/Blood Transfusion Reactions: No Reported Reaction Date of Last Stent Placement:: 05-22-16 Past Psychological History: No Psychological Hx Reported Smoking Status: Current every day smoker Past Alcohol Use History: None Reported Past Drug Use History: None Reported - Past Family History Mother Sister(s) Family Medical History: Cancer Brother(s) Family Medical History: Cancer (Colon cancer 2 brothers), Osteoarthritis (OA) Additional Family Medical History / Comment(s): colon Mother Family Medical History: Cancer (colon Cancer in her 80s) Father Family Medical History: Coronary Artery Disease (CAD) Sister(s) Family Medical History: Cancer (GI cancer), COPD, Osteoarthritis (OA) Medications and Allergies Home Medications Medication Instructions Recorded Confirmed Type Nitroglycerin Sl Tabs [Nitrostat] 0.4 mg SUBLINGUAL Q5M PRN #25 tab 05/25/1602/06 Rx Spironolactone [Aldactone] 25 mg PO DAILY #90 tab 05/25/16 11/27/17 Rx Lisinopril [Zestril] 20 mg PO DAILY 03/17/17 11/27/17 History Metoprolol Tartrate [Lopressor] 50 mg PO BID 03/17/17 11/27/17 History Aspirin EC [Ecotrin Low Dose] 81 mg PO DAILY 11/27/17 11/27/17 History Pantoprazole Sodium [Protonix] 40 mg PO DAILY 11/27/17 11/27/17 History Sennosides [Senna] 8.6 mg PO DAILY PRN 11/27/17 11/27/17 History amLODIPine [Norvasc] 5 mg PO DAILY 11/27/17 11/27/17 History Allergies Allergy/AdvReac Type Severity Reaction Status Date / Time No Known Allergies Allergy Verified 11/27/17 14:50 Physical Exam Vitals: Vital Signs Temp Pulse Resp BP Pulse Ox 11/27/17 17:14 97.2 F L 87 18 124/80 97 11/27/17 16:56 84 114/67 98 11/27/17 16:37 79 16 107/67 96 11/27/17 14:36 89 18 118/76 98 11/27/17 14:02 98.0 F 97 18 135/91 98 Intake and Output 11/27/17 11/27/17 11/27/17 06:59 14:59 22:59 Intake Total 0.625 Balance 0.625 Intake: Intake, IV Titration 0.625 Amount Nitroglycerin-D5w Pmx 50 0.625 mg In Dextrose/Water 1 250ml.bag @ 5 MCG/MIN 1.5 mls/hr IV .Q24H [facility] Rx#: [id number] Other: Weight 84.776 kg - Constitutional General appearance: no acute distress - Respiratory Respiratory: bilateral: CTA - Cardiovascular Rhythm: regular Heart sounds: normal: S1, S2 Results 11/27/17 14:25 11/27/17 14:25 Cardiac Enzymes 11/27/17 11/27/17 Range/Units 14:25 14:25 AST 27 (17-59) U/L CK-MB (CK-2) 0.6 (0.0-2.4) ng/mL Troponin I 0.069 H* (0.000-0.034) ng/mL Coagulation 11/27/17 Range/Units 14:25 PT 10.1 (9.0-12.0) sec APTT 23.2 (22.0-30.0) sec CBC 11/27/17 Range/Units 14:25 WBC 6.3 (3.8-10.6) k/uL RBC 4.59 (4.30-5.90) m/uL Hgb 12.2 L (13.0-17.5) gm/dL Hct 38.9 L (39.0-53.0) % Plt Count 402 (150-450) k/uL Comprehensive Metabolic Panel 11/27/17 Range/Units 14:25 Sodium 138 (137-145) mmol/L Potassium 4.1 (3.5-5.1) mmol/L Chloride 104 (98-107) mmol/L Carbon Dioxide 23 (22-30) mmol/L BUN 5 L (9-20) mg/dL Creatinine 0.74 (0.66-1.25) mg/dL Glucose 112 H (74-99) mg/dL Calcium 8.8 (8.4-10.2) mg/dL AST 27 (17-59) U/L ALT 28 (21-72) U/L Alkaline Phosphatase 116 (38-126) U/L Total Protein 5.9 L (6.3-8.2) g/dL Albumin 3.5 (3.5-5.0) g/dL Current Medications Generic Name Dose Route Start Last Admin Trade Name Freq PRN Reason Stop Dose Admin Amlodipine Besylate 5 mg 11/28/17 09:00 Norvasc PO DAILY [facility] Aspirin 81 mg 11/28/17 09:00 Aspirin PO DAILY [facility] Atorvastatin Calcium 40 mg 11/27/17 21:00 Lipitor PO HS [facility] Sodium Chloride 1,000 mls @ 100 mls/hr 11/27/17 14:19 11/27/17 14:30 Saline 0.9% IV 11/28/17 00:18 100 mls/hr .Q10H STA Administration Heparin Sodium/Sodium Chloride 500 mls @ 20 mls/hr 11/27/17 16:00 11/27/17 16 :50 25,000 unit/ Sodium Chloride IV 11.8 units/kg/hr .Q24H [facility] 20 mls/hr Administration Protocol 11.8 UNITS/KG/HR Nitroglycerin/Dextrose 50 mg/ 250 mls @ 1.5 mls/hr 11/27/17 16:30 11/27/17 17 :13 IV Solution IV 10 mcg/min .Q24H [facility] 3 mls/hr Titration Protocol 5 MCG/MIN Sodium Chloride 1,000 mls @ 999 mls/hr 11/27/17 16:56 11/27/17 16:57 Saline 0.9% IV 11/27/17 17:56 999 mls/hr .Q1H1M ONE Administration Lisinopril 20 mg 11/28/17 09:00 Zestril PO DAILY [facility] Metoprolol Tartrate 50 mg 11/27/17 21:00 Lopressor PO BID [facility] Morphine Sulfate 4 mg 11/27/17 15:50 Morphine Sulfate (Inj) IV Q5M PRN CHEST PAIN Nitroglycerin 0.4 mg 11/27/17 15:50 Nitrostat SUBLINGUAL Q5M PRN Chest Pain Pantoprazole Sodium 40 mg 11/28/17 07:30 Protonix PO AC-BRKFST [facility] Senna 8.6 mg 11/27/17 15:57 Senokot PO DAILY PRN Constipation Spironolactone 25 mg 11/28/17 09:00 Aldactone PO DAILY [facility] Intake and Output 11/27/17 11/27/17 11/27/17 06:59 14:59 22:59 Intake Total 0.625 Balance 0.625 Intake: Intake, IV Titration 0.625 Amount Nitroglycerin-D5w Pmx 50 0.625 mg In Dextrose/Water 1 250ml.bag @ 5 MCG/MIN 1.5 mls/hr IV .Q24H [facility] Rx#: [id number] Other: Weight 84.776 kg Patient Weight 11/28/17 06:59 Weight 84.776 kg 11/27/17 14:25 11/27/17 14:25 Assessment and Plan Assessment: Assessment #1 acute non-ST elevation myocardial infarction #2 known coronary artery disease and prior stenting of the LAD and RCA. Known intermediate disease involving the LCx. #3 significant history of smoking #4 hypertension and dyslipidemia Plan #1 the chest discomfort has improved on heparin drip. I am going to add nitro drip to the current medical treatment and titrate the nitro for the chest discomfort. #2 follow-up with the serial cardiac enzymes. #3 continue the aspirin as well as metoprolol and statin #4 obtain an echocardiogram was Doppler #5 the patient likely need to have a coronary angiogram to rule out any severe underlying coronary artery disease in the next 12-24 hours. Thank you for allowing us participate in his care and we will continue following up with the patient
[2017-11-27] MEDS ORDERED: ATORVASTATIN 40 MG TAB PO SCH (21:00)
[2017-11-27] MEDS: METOPROLOL TARTRATE 50 MG TAB PO SCH (21:04)
[2017-11-27 21:06] LABS: Creatine Kinase MB 1.2 ng/mL (0.0-2.4)
[2017-11-27 21:07] LABS: Troponin I 0.171 ng/mL (0.000-0.034)
[2017-11-27] MEDS ORDERED: MELATONIN 3 MG TABLET PO SCH (22:00)
[2017-11-27] MEDS ORDERED: HEPARIN SODIUM,PORCINE 5,000 UNIT/ML 1 ML VIAL IV PRN (23:35)
[2017-11-27] MEDS: ACETAMINOPHEN TAB 325 MG TAB PO PRN (23:39)
[2017-11-27] MEDS ORDERED: MELATONIN 3 MG TABLET PO PRN (23:40)
[2017-11-28 02:16] LABS: Anisocytosis Slight; Basophils % (A) 0 %; Eosinophils # (A) 0.3 k/uL (0-0.7); Eosinophils % (A) 5 %; HGB 10.5 gm/dL (13.0-17.5); Hypochromasia Marked; Lymphocytes # (A) 2.1 k/uL (1.0-4.8); Lymphocytes % (A) 31 %; MCH 26.3 pg (25.0-35.0); MCHC 30.7 g/dL (31.0-37.0); MCV 85.7 fL (80.0-100.0); Mean Platelet Volume 6.6; Monocytes # (A) 0.5 k/uL (0-1.0); Monocytes % (A) 7 %; Neutrophils # (A) 3.9 k/uL (1.3-7.7); Neutrophils % (A) 56 %; Platelet Count 297 k/uL (150-450); RBC 3.97 m/uL (4.30-5.90); RDW 16.7 % (11.5-15.5); WBC 6.9 k/uL (3.8-10.6)
[2017-11-28 02:44] LABS: Creatine Kinase MB 2.2 ng/mL (0.0-2.4)
[2017-11-28 02:45] LABS: Troponin I 0.632 ng/mL (0.000-0.034)
[2017-11-28 02:50] LABS: AST 42 U/L (17-59); Albumin 2.7 g/dL (3.5-5.0); Blood Urea Nitrogen 7 mg/dL (9-20); Calcium 8.5 mg/dL (8.4-10.2); Carbon Dioxide 24 mmol/L (22-30); Cholesterol 145 mg/dL (<200); Glucose 99 mg/dL (74-99); Total Bilirubin 0.4 mg/dL (0.2-1.3); Total Protein 4.9 g/dL (6.3-8.2); Triglycerides 101 mg/dL (<150)
[2017-11-28 03:06] LABS: ALT 28 U/L (21-72); Alkaline Phosphatase 103 U/L (38-126); Anion Gap 6 mmol/L; Chloride 107 mmol/L (98-107); HDL Cholesterol 33 mg/dL (40-60); LDL Cholesterol,Calculated 92 mg/dL (0-99); Potassium 4.1 mmol/L (3.5-5.1); Sodium 137 mmol/L (137-145)
[2017-11-28] MEDS: ACETAMINOPHEN TAB 325 MG TAB PO PRN ×2 (06:07→20:30)
[2017-11-28] MEDS: PANTOPRAZOLE 40 MG TABLET PO SCH (06:07)
[2017-11-28] MEDS ORDERED: NITROGLYCERIN SL TABS 0.4 MG TAB SUBLINGUAL PRN ×2 (08:23→14:07)
[2017-11-28] MEDS ORDERED: ALPRAZolam 0.5 MG TAB PO PRN (08:23)
[2017-11-28] MEDS ORDERED: SODIUM CHLORIDE 0.9% 1,000 ML in EMPTY BAG 1 BAG IV ONE (08:23)
[2017-11-28] MEDS ORDERED: ALPRAZolam 0.25 MG TAB PO PRN (08:23)
[2017-11-28] MEDS ORDERED: ASPIRIN 325 MG TAB PO STA (08:23)
[2017-11-28] MEDS ORDERED: ATORVASTATIN 80 MG TAB PO STA (08:23)
[2017-11-28] MEDS ORDERED: ASPIRIN 81 MG PO SCH (09:00)
[2017-11-28] MEDS ORDERED: ASPIRIN 325 MG TAB PO SCH (09:00)
[2017-11-28 09:05] VITALS: RESP 16
[2017-11-28] MEDS: LISINOPRIL 20 MG TAB PO SCH (10:35)
[2017-11-28] MEDS: amLODIPine 5 MG TAB PO SCH (10:35)
[2017-11-28] MEDS ORDERED: LIDOCAINE 1% INJ 10MG/ML (20 ML MDV) ONE (12:46)
[2017-11-28] MEDS ORDERED: fentaNYL (PF) 50 MCG/ML 2 ML AMP ONE (12:46)
[2017-11-28] MEDS ORDERED: fentaNYL (PF) 50 MCG/ML 2 ML AMP IV ONE (13:04)
[2017-11-28] MEDS ORDERED: IV FLUID CONTINUATION 500 ML IV ONE (13:05)
[2017-11-28] MEDS ORDERED: LIDOCAINE 1% INJ 10MG/ML (20 ML MDV) SQ ONE (13:06)
[2017-11-28] MEDS ORDERED: BIVALIRUDIN BOLUS 250 MG/50 ML IV ONE (13:19)
[2017-11-28] MEDS ORDERED: BIVALIRUDIN 250 MG in SODIUM CHLORIDE 0.9% 35 ML IV ONE (13:19)
[2017-11-28] MEDS ORDERED: CLOPIDOGREL 75 MG TAB PO ONE (13:23)
[2017-11-28] MEDS ORDERED: IOPAMIDOL-370 125ML BTL INJ ONE (13:29)
[2017-11-28] MEDS ORDERED: NITROGLYCERIN 1000MCG/10ML SYRINGE INTRACORON ONE (13:39)
[2017-11-28] MEDS ORDERED: IOPAMIDOL-370 100ML BTL INJ ONE (13:49)
[2017-11-28] MEDS ORDERED: IOPAMIDOL-370 50ML BTL INJ ONE (13:51)
[2017-11-28] MEDS ORDERED: MAG HYDROX/AL HYDROX/SIMETH 30 ML CUP PO PRN (14:07)
[2017-11-28] MEDS ORDERED: RX INFO: IV CONTRAST WAS GIVEN 1 EACH MISC MISCELLANE PRN (14:07)
[2017-11-28] MEDS ORDERED: ZOLPIDEM 5 MG TAB PO PRN (14:07)
[2017-11-28] MEDS ORDERED: ATROPINE SULFATE 0.1 MG/ML 10ML SYRINGE IV PRN (14:07)
[2017-11-28] MEDS ORDERED: SODIUM CHLORIDE 0.9% 1,000 ML IV SCH (14:15)
--- NOTE | 2017-11-28 14:49 | CC ---
CARDIAC CATHETERIZATION REPORT Mr. Ross is a 52-year-old male known history of coronary disease status post stenting of the LAD and ascending myocardial infarction April 2006 and stenting of the distal right coronary artery in May 2006, history of chronic tobacco use, who presented with symptoms of chest discomfort and non ST-segment elevation myocardial infarction with ST-segment changes in the inferior and the lateral leads. In view of that recommendation was made regarding cardiac catheterization. The procedures, risks and complication were discussed with the patient who is in full understanding and agreement. PROCEDURE: Patient was brought to the dental laboratory technology teacher in a fasting state after receiving fentanyl and Benadryl and achieving moderate conscious sedated state. Using Xylocaine anesthesia and Seldinger technique, a a 6-Filipino sheath was introduced in the right femoral artery. Selective right and left angiography performed using 6-Filipino 4 bend right and left Anthony catheter. Multiple views of the coronary artery including hemiaxial views were obtained. Following that, angioplasty and stenting was performed. Following that, 6-Filipino tight pigtail catheter was introduced in the left ventricle and a 30 degree SPICER view of the left ventricle was obtained. Following the catheter and sheath were removed. Hemostasis was obtained with deployment of an Angio-Seal. There was no immediate complication patient is returned to his room in stable condition. FINDINGS: FLUOROSCOPY: There was calcification involving the coronary arteries. Left Main: This is a large-sized vessel bifurcating left circumflex, left anterior descending artery. Left main coronary artery has no evidence of high-grade stenosis. Left Anterior Descending Artery: This is a large-sized vessel reaching to the apex with a wraparound apex segment. The stented segment in the proximal mid area has no evidence of significant restenosis. There is mild intimal disease in the mid area of about 10-20% without any evidence of high-grade stenosis. Left Circumflex: This is a nondominant vessel giving rise to 2 obtuse marginal branch. The second obtuse marginal branch has a tubular lesion of about 70%. The rest of the vessel has no high-grade stenosis. Right Coronary Artery: This is a dominant vessel, ectatic, bifurcating distally into PDA and posterolateral segment branches. The stented segment distally is patent. The right coronary artery in mid segment has a tubular lesion of about 70-80%. The rest of the vessel has diffuse intimal disease without any evidence of high-grade stenosis. Left Ventriculogram: Left ventriculogram was performed in 30 degree SPICER view and revealed normal left ventricular size and systolic function. Ejection fraction 60%. There was no significant mitral regurgitation. HEMODYNAMICS: There was no gradient across the aortic valve. The left ventricle end-diastolic pressure was 16 the mmHg. CONCLUSION: 1. Critical stenosis involving the left circumflex and the right coronary artery. 2. Patent stent to the LAD and to the right coronary artery. 3. Normal left ventricular size and systolic function. RECOMMENDATION: In view of finding anatomy, I recommend proceeding with angioplasty and stenting. The procedure, risks and complication were discussed with the patient who is in full understanding and agreement. MMODL / IJN: [id number] /
--- NOTE | 2017-11-28 14:52 | PTCA ---
PERCUTANEOUSTRANS CORORONARY ANGIOGRAPHY Mr. Ross is a 52-year-old male with known history of coronary artery disease, status post percutaneous revascularization who presented with non ST-segment elevation myocardial infarction underwent cardiac catheterization, was found to have critical stenosis involving the left circumflex and the right coronary artery. In view of that, recommendation made regarding cardiac catheterization. The procedures, risks and complication were discussed with the patient who is in full understanding and agreement. PROCEDURE: A 6-[place] Islander FR4 guiding catheter in the system. After cannulating the left main a 0.014 medium weight J-wire was advanced across the lesion, positioned distally. Attempts to advance the 3.0 x 18 mm Xience Alpine stent were unsuccessful. That stent was removed and another 0.014 whisper J-wire was advanced in a shae fashion. Attempts to advance the stent at that time were unsuccessful in coming out of the left main into the left circumflex. At that point, the whisper wire was removed and a GuideLiner was introduced system and the stent was advanced, deployed and post dilated at 16 atmospheres. After deploying the stent, the balloon was removed and a whisper J-wire was reintroduced in the first obtuse marginal branch and a 2.5 x 12 mm Trek balloon was advanced and 2 inflation maximum of 8 atmospheres were done. After the last inflation, after appropriate wait the balloon and the guidewire were withdrawn back in the guiding catheter. Images were obtained and repeated. Those images reveal stable successful stenting. The catheter was removed and a 6-[place] Islander FR4 guiding catheter in the system. After cannulating the right coronary ostium. The 0.014 balanced medium weight J-wire was advanced into the system, positioned distally and a 2.75 x 23 mm Xience Alpine stent was deployed, postdilated at 16 atmospheres. After the last inflation, after rate appropriate wait the balloon and guidewire were withdrawn back in the guiding catheter. Images were obtained and repeated. Those images reveal stable successful stenting. At that point, the guiding catheter, the balloon and the guidewire were removed and left ventriculogram was performed. Following that the catheter and sheath were removed. Hemostasis was obtained with deployment of an Angio-Seal. There was no immediate complication. Patient is returned to his room in stable condition. Of note, the patient received Angiomax per protocol as well as oral loading dose of clopidogrel. He had chest discomfort and EKG changes that resolved at the end of procedure. RESULTS: 1. Successful stenting of the second obtuse marginal branch with reduction of stenosis from 70% to 0%. 2. Successful stenting of the mid right coronary artery with reduction of stenosis from 70% to 0%. RECOMMENDATION: Patient be continued on aspirin, Plavix, beta eric and statin. The importance of dual antiplatelet treatment and smoking cessation were discussed with the patient and his family who are in full understanding and agreement. Duration of procedure is 50 minutes. MMODL / IJN: [id number] /
--- NOTE | 2017-11-28 15:12 | P.HPIM ---
History of Present Illness H&P Date: 11/28/17 This is a 52-year-old male patient of Dr. Mona Lora. He has a past medical history of hyperlipidemia, hypertension and noncompliance and tobacco use and dependence and heavy alcohol use and quit 5 years ago, marijuana use, coronary artery disease where the patient underwent stenting of the LAD in May 2016 in the setting of acute anterior ST elevation [place], as subsequently stenting of the RCA. He is also known to have intermediate disease involving the left circumflex. His last hospitalization was in February 2017 under the care of Dr. Barr for bowel obstruction due to diverticular stricture and he underwent Hernandez's procedure and subsequently developed hematoma and swelling at the ostomy. Patient required platelets due to platelet dysfunction. Bleeding was stopped. Ostomy remained viable and patient had gradual improvement of his condition and was discharged home. Pathology report revealed acute colitis with early acute ischemic change. Patient has also been seen at [facility] in August of this year and he underwent reversal of the colostomy has had no further difficulties. Patient states that recently he has not been feeling well for the past couple of days. He states he has been told that he take 3 nitroglycerin and his chest pain does not go away then he needs to come in the hospital. He complains of having chest pain to the midsternal area and numbness to bilateral hands. He also has difficulty in breathing. He denies any dizziness or lightheadedness. He denies any abdominal pain Patient presented to [facility] emergency center for evaluation. Chest x-ray did not show any acute abnormalities. EKG was a sinus rhythm with ST changes in the lateral leads. His troponins have been 0.069, 0.171 and 0.632. Patient was started on heparin drip and admitted to the selective care unit where he has been seen by cardiology. Nitroglycerin drip was started, continue aspirin, metoprolol and statin. Echocardiogram ordered. Triglycerides 101, cholesterol 145, LDL 92, HDL 33. Dr. Herrera is planning for heart catheterization this afternoon. Review of Systems All systems: negative Constitutional: Reports fatigue, Reports malaise, Reports weakness, Denies chills, Denies fever Eyes: denies blurred vision, denies pain Ears, nose, mouth and throat: Denies headache, Denies sore throat Cardiovascular: Reports chest pain, Reports shortness of breath Respiratory: Reports dyspnea, Denies cough, Denies cough with sputum, Denies excessive sputum, Denies hemoptysis, Denies home oxygen, Denies wheezing Gastrointestinal: Denies abdominal pain, Denies diarrhea, Denies nausea, Denies vomiting Genitourinary: Denies dysuria Musculoskeletal: Denies myalgias Integumentary: Denies pruritus, Denies rash, Denies wounds Neurological: Denies numbness, Denies weakness Psychiatric: Denies anxiety, Denies depression Endocrine: Denies fatigue, Denies weight change Past Medical History Past Medical History: Coronary Artery Disease (CAD), Hyperlipidemia, Hypertension, Myocardial Infarction ([place]), Osteoarthritis (OA) Additional Past Medical History / Comment(s): Hypertension, coronary artery disease, hyperlipidemia, previous history of rectal abscess, diverticular disease/diverticulitis Last Myocardial Infarction Date:: 05/21/2016 History of Any Multi-Drug Resistant Organisms: None Reported Past Surgical History: Heart Catheterization With Stent Additional Past Surgical History / Comment(s): surg. for diverticulitis, bowel reconstruction - colostomy and reversal Past Anesthesia/Blood Transfusion Reactions: No Reported Reaction Additional Past Anesthesia/Blood Transfusion Reaction / Comment(s): hallucinated after aa. past blood transfusion-no reaction Date of Last Stent Placement:: 05-22-16 Past Psychological History: No Psychological Hx Reported Smoking Status: Current every day smoker Past Alcohol Use History: None Reported Additional Past Alcohol Use History / Comment(s): Patient is a smoker one pack per day. He does have history of alcohol abuse but quit 5 years ago. He smokes marijuana occasionally. Past Drug Use History: None Reported - Past Family History Mother Sister(s) Family Medical History: Cancer Brother(s) Family Medical History: Cancer (Colon cancer 2 brothers), Osteoarthritis (OA) Additional Family Medical History / Comment(s): Patient has 2 brothers with colon cancer. Mother Family Medical History: Cancer (colon Cancer in her 80s) Additional Family Medical History / Comment(s): Mother had colon cancer in her 80s. Father Family Medical History: Coronary Artery Disease (CAD) Sister(s) Family Medical History: Cancer (GI cancer), COPD, Osteoarthritis (OA) Additional Family Medical History / Comment(s): Sister had GI type of cancer. Medications and Allergies Home Medications Medication Instructions Recorded Confirmed Type Nitroglycerin Sl Tabs [Nitrostat] 0.4 mg SUBLINGUAL Q5M PRN #25 tab 05/25/1602/06 Rx Spironolactone [Aldactone] 25 mg PO DAILY #90 tab 05/25/16 11/27/17 Rx Lisinopril [Zestril] 20 mg PO DAILY 03/17/17 11/27/17 History Metoprolol Tartrate [Lopressor] 50 mg PO BID 03/17/17 11/27/17 History Aspirin EC [Ecotrin Low Dose] 81 mg PO DAILY 11/27/17 11/27/17 History Pantoprazole Sodium [Protonix] 40 mg PO DAILY 11/27/17 11/27/17 History Sennosides [Senna] 8.6 mg PO DAILY PRN 11/27/17 11/27/17 History amLODIPine [Norvasc] 5 mg PO DAILY 11/27/17 11/27/17 History Allergies Allergy/AdvReac Type Severity Reaction Status Date / Time No Known Allergies Allergy Verified 11/27/17 14:50 Physical Exam Vitals: Vital Signs Temp Pulse Pulse Resp BP BP Pulse Ox 11/28/17 08:00 98.3 F 66 16 113/77 97 11/28/17 04:00 80 18 112/75 96 11/28/17 00:00 74 18 106/68 96 11/27/17 20:00 96.8 F L 96 18 118/83 95 11/27/17 17:14 97.2 F L 87 18 124/80 97 11/27/17 16:56 84 114/67 98 11/27/17 16:37 79 16 107/67 96 11/27/17 14:36 89 18 118/76 98 11/27/17 14:02 98.0 F 97 18 135/91 98 Intake and Output 11/27/17 11/28/17 11/28/17 22:59 06:59 14:59 Intake Total 240.625 298.576 Balance 240.625 298.576 Intake: Intake, IV Titration 0.625 298.576 Amount Heparin Sod,Pork in 0.45% 298.576 NaCl 25,000 unit In 0.45 % NaCl 1 500ml.bag @ 11.8 UNITS/KG/HR 20 mls/hr IV .Q24H [facility] Rx#:[id number] Nitroglycerin-D5w Pmx 50 0.625 mg In Dextrose/Water 1 250ml.bag @ 5 MCG/MIN 1.5 mls/hr IV .Q24H [facility] Rx#: [id number] Oral 240 Other: Voiding Method Toilet Toilet # Voids 1 2 Weight 87.3 kg Gen: This is a 52-year-old male patient sitting up in the bed with no acute distress. No respiratory distress is noted. Patient ambulated back from the shower to the bed with no difficulty. No lightheadedness or dizziness. HEENT: Head is atraumatic, normocephalic. Pupils equal, round. Sclerae is anicteric. NECK: Supple. No JVD. No lymphadenopathy. No thyromegaly. LUNGS: Clear to auscultation. No wheezes or rhonchi. No intercostal retractions. HEART: Regular rate and rhythm. No murmur. ABDOMEN: Soft. Bowel sounds are present. No masses. No tenderness. EXTREMITIES: No pedal edema. No calf tenderness. NEUROLOGICAL: Patient is awake, alert and oriented x3. Cranial nerves 2 through 12 are grossly intact. Results CBC & Chem 7: 11/28/17 02:03 11/28/17 02:03 Labs: Abnormal Lab Results - Last 24 Hours (Table) 11/27/17 11/27/17 11/27/17 Range/Units 14:25 14:25 14:25 RBC (4.30-5.90) m/uL Hgb 12.2 L (13.0-17.5) gm/dL Hct 38.9 L (39.0-53.0) % MCHC (31.0-37.0) g/dL RDW 16.5 H (11.5-15.5) % APTT (22.0-30.0) sec BUN 5 L (9-20) mg/dL Glucose 112 H (74-99) mg/dL Troponin I 0.069 H* (0.000-0.034) ng/mL Total Protein 5.9 L (6.3-8.2) g/dL Albumin (3.5-5.0) g/dL HDL Cholesterol (40-60) mg/dL 11/27/17 11/27/17 11/28/17 Range/Units 20:18 22:51 02:03 RBC (4.30-5.90) m/uL Hgb (13.0-17.5) gm/dL Hct (39.0-53.0) % MCHC (31.0-37.0) g/dL RDW (11.5-15.5) % APTT 31.9 H (22.0-30.0) sec BUN (9-20) mg/dL Glucose (74-99) mg/dL Troponin I 0.171 H* 0.632 H* (0.000-0.034) ng/mL Total Protein (6.3-8.2) g/dL Albumin (3.5-5.0) g/dL HDL Cholesterol (40-60) mg/dL 11/28/17 11/28/17 11/28/17 Range/Units 02:03 02:03 02:03 RBC 3.97 L (4.30-5.90) m/uL Hgb 10.5 L (13.0-17.5) gm/dL Hct 34.0 L (39.0-53.0) % MCHC 30.7 L (31.0-37.0) g/dL RDW 16.7 H (11.5-15.5) % APTT 78.6 H (22.0-30.0) sec BUN 7 L (9-20) mg/dL Glucose (74-99) mg/dL Troponin I (0.000-0.034) ng/mL Total Protein 4.9 L (6.3-8.2) g/dL Albumin 2.7 L (3.5-5.0) g/dL HDL Cholesterol 33 L (40-60) mg/dL Thrombosis Risk Factor Assmnt - DVT/VTE Prophylaxis DVT/VTE Prophylaxis: Pharmacologic Prophylaxis ordered - Choose All That Apply Any of the Below Risk Factors Present?: No Assessment and Plan Plan: 1. Acute non-ST elevated myocardial infarction. Consult with cardiology is appreciated. Patient is on heparin drip and nitroglycerin drip. Continue aspirin, metoprolol, statin. Echocardiogram has been ordered. Heart catheterization is scheduled for this afternoon. 2. History of known coronary artery disease status post stenting of the LAD and RCA with known intermediate disease in the circumflex. Continue as in #1. 3. Hypertensive cardiovascular disease, continue lisinopril 20 mg daily, Norvasc 5 mg daily, Lopressor 50 mg twice daily. 4. Hyperlipidemia. Continue atorvastatin 80 mg at bedtime. 5. History of bowel obstruction secondary to mechanical obstruction sigmoid area, post sigmoid colostomy performed 03/20/2017 with reversal performed August 2016 at [facility]. 6. Tobacco use and dependence. Patient started on nicotine patch at 21 mg daily. 7. Significant family history of colon cancer siblings and a mother 8. History of alcohol abuse. Patient states he has been sober for 5 years. 9. DVT prophylaxis. Patient is on heparin drip. 10. GI prophylaxis Protonix. Patient will be admitted to the hospital for a minimum of 2 nights stay. Discharge plan: Return home Impression and plan of care have been directed as dictated by the signing physician. Patricia Da Silva nurse practitioner acting as scribe for signing physician.
[2017-11-28 15:23] VITALS: BMI 29.2
[2017-11-28] MEDS: NICOTINE 21MG/24HR PATCH TRANSDERM SCH (16:17)
[2017-11-28] MEDS: SPIRONOLACTONE 25 MG TAB PO SCH (16:17)
[2017-11-28] MEDS: METOPROLOL TARTRATE 50 MG TAB PO SCH ×2 (16:18→20:31)
[2017-11-29] MEDS: PANTOPRAZOLE 40 MG TABLET PO SCH (06:01)
[2017-11-29 06:55] LABS: Anion Gap 8 mmol/L; Blood Urea Nitrogen 5 mg/dL (9-20); Calcium 8.6 mg/dL (8.4-10.2); Carbon Dioxide 23 mmol/L (22-30); Chloride 107 mmol/L (98-107); Glucose 88 mg/dL (74-99); Potassium 3.9 mmol/L (3.5-5.1); Sodium 138 mmol/L (137-145)
[2017-11-29] MEDS: NICOTINE 21MG/24HR PATCH TRANSDERM SCH (07:43)
[2017-11-29] MEDS: SPIRONOLACTONE 25 MG TAB PO SCH (07:44)
[2017-11-29] MEDS: LISINOPRIL 20 MG TAB PO SCH (07:44)
[2017-11-29] MEDS: amLODIPine 5 MG TAB PO SCH (07:44)
[2017-11-29] MEDS: METOPROLOL TARTRATE 50 MG TAB PO SCH (07:44)
[2017-11-29 07:51] VITALS: BP 105/62; PULSE 90; TEMP 97.8
[2017-11-29] MEDS ORDERED: ASPIRIN 81 MG PO SCH (09:00)
[2017-11-29] MEDS ORDERED: CLOPIDOGREL 75 MG TAB PO SCH (12:00)
--- NOTE | 2017-11-29 14:53 | P.PN ---
Subjective Progress Note Date: 11/29/17 This is a pleasant 52-year-old gentleman who sees Dr. Montemayor in the office as an outpatient with a past medical history significant for coronary artery disease where the patient underwent stenting of the LAD in May 2016 in the setting of acute anterior ST elevation [place], as subsequently stenting of the RCA. He is also known to have intermediate disease involving the left circumflex. Unfortunately he continues to smoke. He was in his usual state of health until yesterday when he was sitting at home and started experiencing chest discomfort as a dull kind of discomfort in the mid of the chest with numbness in the right hand. No shortness of breath. No sweating. No nausea vomiting, and no syncope. The patient took nitroglycerin yesterday was improvement in his symptoms. Today when he was in the car with his he developed another episode of chest discomfort with similar characteristic to the episodes from yesterday and this point she took 3 nitroglycerin without any improvement in the symptoms and because of that he presented to the emergency room. The chest discomfort was around 9/10 in intensity when he presented to the emergency room and after he was started on heparin drip the discomfort has subsided to about 4- 5/10 in intensity's.The EKG showed sinus rhythm with ST changes in the lateral leads. Troponins came back to be abnormal. The chest x-ray did not show any acute abnormalities. The patient underwent an echocardiogram in February 2017 when he was admitted to the hospital with small bowel obstruction and the echocardiogram revealed normal LV function without any significant valvular abnormalities. Patient was advised to undergo cardiac catheterization, the risks and the benefits were explained to the patient in detail. Was performed yesterday by Dr. Montemayor. Patient underwent successful stenting of the second obtuse marginal branch as well as successful stenting of the RCA. EKG was reviewed this morning which showed normal sinus rhythm with no changes from post -PCI. Hemodynamically the patient is stable. He denies any chest discomfort or difficulty in breathing. Objective - Vital Signs Vital signs: Vital Signs Temp 97.8 F 11/29/17 07:50 Pulse 90 11/29/17 07:50 Resp 16 11/29/17 08:00 BP 105/62 11/29/17 07:50 Pulse Ox 93 L 11/29/17 07:50 Intake & Output 11/28/17 11/29/17 11/29/17 18:59 06:59 18:59 Intake Total 375 240 Output Total 900 700 Balance -525 -460 Weight 87.3 kg 85 kg Intake: IV 135 Oral 240 240 Output: Urine 900 700 Other: Voiding Method Toilet Toilet - Exam PHYSICAL EXAMINATION: GENERAL: 52-year-old gentleman in no acute distress at the time of my examination HEENT: Head is atraumatic, normocephalic. Pupils equal, round. Sclera anicteric. Conjunctiva are clear. Mucous membranes of the mouth are moist. Neck is supple. There is no elevated jugular venous pressure.] bruit is heard. HEART EXAMINATION: Heart S1, S2 normal. No murmur or gallop heard. CHEST EXAMINATION: Lungs are clear to auscultation and precussion. No chest wall tenderness is noted on palpation or with deep breathing. ABDOMEN: Soft, nontender. Bowel sounds are heard. No organomegaly noted. EXTREMITIES: 2+ peripheral pulses with no evidence of peripheral edema and no calf tenderness noted. Right groin soft, no evidence of any hematoma. NEUROLOGIC patient is awake, alert and oriented ?-3. . - Labs CBC & Chem 7: 11/28/17 02:03 11/29/17 06:24 Labs: Abnormal Lab Results - Last 24 Hours (Table) 11/29/17 Range/Units 06:24 BUN 5 L (9-20) mg/dL Assessment and Plan Plan: Assessment and plan #1 acute non-ST elevation myocardial infarction, status post successful stenting of the second obtuse marginal branch and right coronary artery #2 known coronary artery disease and prior stenting of the LAD and RCA. Known intermediate disease involving the LCx. #3 significant history of smoking #4 hypertension and dyslipidemia Plan From cardiology's perspective, patient may be able to be discharged home today. We will make him a follow-up appointment in the office with Dr. Montemayor post discharge. Patient will be discharged home on Norvasc 5 mg daily, Ecotrin 81 mg daily, Lipitor 80 mg daily, Plavix 75 mg daily, Zestril 20 mg daily, Lopressor 50 mg by mouth twice a day, Habitrol patch, sublingual nitroglycerin as needed for chest pain. DNP note has been reviewed, I agree with a documented findings and plan of care. Patient was seen and examined.
[2017-11-29] MEDS ORDERED: ATORVASTATIN 80 MG TAB PO SCH (21:00)
--- NOTE | 2017-11-30 15:24 | P.DS ---
Providers Date of admission: 11/27/17 15:50 Expected date of discharge: 11/29/17 Attending physician: Mari Turcios MD Consults: 11/27/17 15:50 Consult Physician Urgent Consulting Provider: Coleman Herrera Consult Reason/Comments: myocardial infarction Do you want consulting provider notified?: Yes 11/28/17 14:07 Consult Physician Routine Consulting Provider: [facility] Consult Reason/Comments: Post Interventional patient Do you want consulting provider notified?: Already Contacted Primary care physician: Mona Lora [facility] Course: This is a 52-year-old male patient of Dr. Mona Lora. He has a past medical history of hyperlipidemia, hypertension and noncompliance and tobacco use and dependence and heavy alcohol use and quit 5 years ago, marijuana use, coronary artery disease where the patient underwent stenting of the LAD in May 2016 in the setting of acute anterior ST elevation [place], as subsequently stenting of the RCA. He is also known to have intermediate disease involving the left circumflex. His last hospitalization was in February 2017 under the care of Dr. Barr for bowel obstruction due to diverticular stricture and he underwent Hernandez's procedure and subsequently developed hematoma and swelling at the ostomy. Patient required platelets due to platelet dysfunction. Bleeding was stopped. Ostomy remained viable and patient had gradual improvement of his condition and was discharged home. Pathology report revealed acute colitis with early acute ischemic change. Patient has also been seen at [facility] in August of this year and he underwent reversal of the colostomy has had no further difficulties. Patient states that recently he has not been feeling well for the past couple of days. He states he has been told that he take 3 nitroglycerin and his chest pain does not go away then he needs to come in the hospital. He complains of having chest pain to the midsternal area and numbness to bilateral hands. He also has difficulty in breathing. He denies any dizziness or lightheadedness. He denies any abdominal pain Patient presented to [facility] emergency center for evaluation. Chest x-ray did not show any acute abnormalities. EKG was a sinus rhythm with ST changes in the lateral leads. His troponins have been 0.069, 0.171 and 0.632. Patient was started on heparin drip and admitted to the selective care unit where he has been seen by cardiology. Nitroglycerin drip was started, continue aspirin, metoprolol and statin. Echocardiogram ordered. Triglycerides 101, cholesterol 145, LDL 92, HDL 33. Dr. Herrera is planning for heart catheterization this afternoon. 11/29: Patient underwent heart catheterization yesterday with Dr. Montemayor that revealed critical stenosis involving the left circumflex and right coronary artery. Patent stent in LAD and the right coronary artery. Normal left ventricle size and systolic function. Patient underwent successful stenting of the second obtuse marginal branch with reduction of stenosis from 70% to 0% and successful stenting of the mid right coronary artery with reduction of stenosis from 70% to 0%. Patient is continued on aspirin, Plavix beta eric and statin. Patient has been cleared for discharge home. Patient will be discharged home in stable condition. Discharge diagnoses: 1. Acute non-ST elevated myocardial infarction. 2. History of known coronary artery disease status post stenting of the LAD and RCA with known intermediate disease in the circumflex. 3. Hypertensive cardiovascular disease 4. Hyperlipidemia. 5. History of bowel obstruction secondary to mechanical obstruction sigmoid area, post sigmoid colostomy performed 03/20/2017 with reversal performed August 2016 at [facility]. 6. Tobacco use and dependence. 7. Significant family history of colon cancer siblings and a mother 8. History of alcohol abuse. Discharge plan: Return home Impression and plan of care have been directed as dictated by the signing physician. Patricia Da Silva nurse practitioner acting as scribe for signing physician. Patient Condition at Discharge: Good Plan - Discharge Summary Discharge Rx Participant: No New Discharge Prescriptions: New Atorvastatin [Lipitor] 80 mg PO HS #30 tab Clopidogrel [Plavix] 75 mg PO DAILY #30 tab Nicotine 21Mg/24Hr Patch [Habitrol] 1 patch TRANSDERM DAILY #30 patch Nitroglycerin Sl Tabs [Nitrostat] 0.4 mg SUBLINGUAL Q5M PRN #3 tab PRN Reason: Chest Pain Continue Nitroglycerin Sl Tabs [Nitrostat] 0.4 mg SUBLINGUAL Q5M PRN #25 tab PRN Reason: Chest Pain Spironolactone [Aldactone] 25 mg PO DAILY #90 tab Metoprolol Tartrate [Lopressor] 50 mg PO BID Lisinopril [Zestril] 20 mg PO DAILY Sennosides [Senna] 8.6 mg PO DAILY PRN PRN Reason: Constipation Pantoprazole Sodium [Protonix] 40 mg PO DAILY Aspirin EC [Ecotrin Low Dose] 81 mg PO DAILY amLODIPine [Norvasc] 5 mg PO DAILY Discharge Medication List Nitroglycerin Sl Tabs [Nitrostat] 0.4 mg SUBLINGUAL Q5M PRN #25 tab 05/25/16 [Rx ] Spironolactone [Aldactone] 25 mg PO DAILY #90 tab 05/25/16 [Rx] Lisinopril [Zestril] 20 mg PO DAILY 03/17/17 [History] Metoprolol Tartrate [Lopressor] 50 mg PO BID 03/17/17 [History] Aspirin EC [Ecotrin Low Dose] 81 mg PO DAILY 11/27/17 [History] Pantoprazole Sodium [Protonix] 40 mg PO DAILY 11/27/17 [History] Sennosides [Senna] 8.6 mg PO DAILY PRN 11/27/17 [History] amLODIPine [Norvasc] 5 mg PO DAILY 11/27/17 [History] Atorvastatin [Lipitor] 80 mg PO HS #30 tab 11/29/17 [Rx] Clopidogrel [Plavix] 75 mg PO DAILY #30 tab 11/29/17 [Rx] Nicotine 21Mg/24Hr Patch [Habitrol] 1 patch TRANSDERM DAILY #30 patch 11/29/17 [ Rx] Nitroglycerin Sl Tabs [Nitrostat] 0.4 mg SUBLINGUAL Q5M PRN #3 tab 11/29/17 [Rx] Follow up Appointment(s)/Referral(s): Mona Lora MD [Primary Care Provider] - 12/06/17 6:15 pm (Monday) Mag Montemayor MD [STAFF PHYSICIAN] - 12/06/17 11:00 am (Monday) Patient Instructions/Handouts: *Surgery [facility] - After Heart Catheterization - [facility] Instructions, Left Heart Catheterization (DC), How to Stop Smoking (DC) Discharge Disposition: HOME SELF-CARE
== END 2017-11-29 12:36 | disposition home or self-care (01) | DRG 247 ==
LOC: EC 13:47 → 6SEL 15:50
PROVIDERS: ADMIT Internal Medicine; ATTEND Internal Medicine
PROC: B2151ZZ Fluoroscopy of Left Heart using Low Osmolar Contrast (ICD-10-PCS; 2017-11-28)
PROC: 027135Z Dilation of Coronary Artery, Two Arteries with Two Drug-eluting Intraluminal Devices, Percutaneous Approach (ICD-10-PCS; principal; 2017-11-28 12:48)
PROC: 4A023N7 Measurement of Cardiac Sampling and Pressure, Left Heart, Percutaneous Approach (ICD-10-PCS; 2017-11-28 12:48)
PROC: B2111ZZ Fluoroscopy of Multiple Coronary Arteries using Low Osmolar Contrast (ICD-10-PCS; 2017-11-28 12:48)
DX: I21.4 Non-ST elevation (NSTEMI) myocardial infarction (principal); I25.10 Atherosclerotic heart disease of native coronary artery without angina pectoris; I25.2 Old myocardial infarction; I11.9 Hypertensive heart disease without heart failure; E78.5 Hyperlipidemia, unspecified; M19.90 Unspecified osteoarthritis, unspecified site; F17.210 Nicotine dependence, cigarettes, uncomplicated; K57.90 Diverticulosis of intestine, part unspecified, without perforation or abscess without bleeding; F10.21 Alcohol dependence, in remission; Z79.899 Other long term (current) drug therapy; Z79.82 Long term (current) use of aspirin; Z90.49 Acquired absence of other specified parts of digestive tract; Z95.5 Presence of coronary angioplasty implant and graft; Z82.5 Family history of asthma and other chronic lower respiratory diseases; Z82.49 Family history of ischemic heart disease and other diseases of the circulatory system; Z80.0 Family history of malignant neoplasm of digestive organs; Z82.61 Family history of arthritis
CPT/HCPCS: 36415; 71046; 80048; 80053; 80061; 82550; 82553; 83735; 84484; 85025; 85347; 85379; 85610; 85730; 93005; 93458; 96361; 96365; 96368; 96375; 96376; 99291

== ENCOUNTER 2018-08-28 18:34 | Observation (INO) | payer OTHER ==
[2018-08-28 18:36] VITALS: RESP 18
[2018-08-28] MEDS ORDERED: ASPIRIN 81 MG PO STA (19:18)
--- NOTE | 2018-08-28 19:22 | ED ---
General Adult HPI - General Chief complaint: Chest Pain Stated complaint: chest pain Time Seen by Provider: 08/28/18 18:54 Source: patient Mode of arrival: wheelchair Limitations: no limitations - History of Present Illness Initial comments: Dictation was produced using [employer] dictation software. please excuse any grammatical, word or spelling errors. Chief Complaint: 53-year-old male with past medical history of coronary artery disease status post multiple stents. Presents with chest pain. History of Present Illness: 53-year-old male with past medical history of coronary artery disease. Patient has 3 stents. Patient states that around 4 PM he felt like his hands were getting numb. He then began having some chest pain. Patient states this episode lasted for several minutes. Took a sublingual nitroglycerin with some improvement of his symptoms. Patient also reports having had a headache as well. He was having a repeat myocardial infarction prompting him to come to the emergency department. States that his symptoms today are similar to the symptoms she had when he was diagnosed with myocardial infarction. Patient denies any radiation of symptoms to the shoulders or jaw. No associated diaphoresis. Patient reports that the numbness in his bilateral hands improved spontaneously. The ROS documented in this emergency department record has been reviewed and confirmed by me. Those systems with pertinent positive or negative responses have been documented in the HPI. All other systems are other negative and/or noncontributory. PHYSICAL EXAM: General Impression: Alert and oriented x3, not in acute distress HEENT: Normocephalic atraumatic, extra-ocular movements intact, pupils equal and reactive to light bilaterally, mucous membranes moist. Cardiovascular: Heart regular rate and rhythm, S1&S2 audible, no murmurs, rubs or gallops Chest: Lungs clear to auscultation bilaterally, no rhonchi, no wheeze, no rales Abdomen: Bowel sounds present, abdomen soft, non-tender, non-distended, no or ganomegaly Musculoskeletal: Pulses present and equal in all extremities, no peripheral edema Motor: no focal deficits noted Neurological: CN II-XII grossly intact, no focal motor or sensory deficits noted Skin: Intact with no visualized rashes Psych: Normal affect and mood ED course: 53-year-old male presents with chief complaint of chest pain. Patient is a patient of Dr. Gonzalez. He has had multiple stents in the past. All signs upon arrival are within acceptable limits. His chest pain did improve with nitroglycerin. Patient states his symptoms are somewhat to symptoms she has had the past when he was diagnosed myocardial infarction. EKG does not show any signs of infarction however there are some ST depressions diffusely mostly noted in the precordial leads. Laboratory evaluation obtained. CBC, coag panel, metabolic panel is obtained. Patient positive for hypokalemia. He is given by mouth potassium. Cardiac enzymes negative. Chest x-ray is nonacute. Patient reevaluated found to be in stable medical condition. Patient reports improvement of his pain symptoms. He is given aspirin. Patient is high risk I believe he would benefit from inpatient observation admission for surgery troponins and cardiology consultation. EKG interpretation: Ventricular rate 94, normal sinus rhythm, PA interval 154, care is 82, QTC 480. No PA prolongation, no QTC prolongation, no ST or T-wave changes noted - Related Data Home Medications Medication Instructions Recorded Confirmed Metoprolol Tartrate [Lopressor] 50 mg PO BID 03/17/17 08/28/18 Aspirin EC [Ecotrin Low Dose] 81 mg PO DAILY 11/27/17 08/28/18 amLODIPine [Norvasc] 5 mg PO DAILY 11/27/17 08/28/18 Fluticasone Nasal [place] [Flonase 1 spray EA NOSTRIL DAILY 08/28/18 08/28/18 Nasal [place]] Lisinopril 40 mg PO DAILY 08/28/18 08/28/18 Omeprazole 20 mg PO DAILY 08/28/18 08/28/18 traZODone HCL 50 mg PO HS 08/28/18 08/28/18 Previous Rx's Medication Instructions Recorded Clopidogrel [Plavix] 75 mg PO DAILY #30 tab 11/29/17 Nitroglycerin Sl Tabs [Nitrostat] 0.4 mg SUBLINGUAL Q5M PRN #3 tab 11/29/17 Allergies Allergy/AdvReac Type Severity Reaction Status Date / Time No Known Allergies Allergy Verified 08/28/18 19:05 Review of Systems ROS Statement: Those systems with pertinent positive or pertinent negative responses have been documented in the HPI. ROS Other: All systems not noted in ROS Statement are negative. Past Medical History Past Medical History: Coronary Artery Disease (CAD), Hyperlipidemia, Hypertension, Myocardial Infarction (MA), Osteoarthritis (OA) Additional Past Medical History / Comment(s): Hypertension, coronary artery dise ase, hyperlipidemia, previous history of rectal abscess, diverticular disease/diverticulitis Last Myocardial Infarction Date:: 05/21/2016 History of Any Multi-Drug Resistant Organisms: None Reported Past Surgical History: Heart Catheterization With Stent Additional Past Surgical History / Comment(s): surg. for diverticulitis, bowel reconstruction - colostomy and reversal Past Anesthesia/Blood Transfusion Reactions: No Reported Reaction Additional Past Anesthesia/Blood Transfusion Reaction / Comment(s): hallucinated after aa. past blood transfusion-no reaction Date of Last Stent Placement:: 05-22-16 Past Psychological History: No Psychological Hx Reported Smoking Status: Current every day smoker Past Alcohol Use History: None Reported Past Drug Use History: None Reported - Past Family History Mother Sister(s) Family Medical History: Cancer Brother(s) Family Medical History: Cancer (Colon cancer 2 brothers), Osteoarthritis (OA) Additional Family Medical History / Comment(s): Patient has 2 brothers with colon cancer. Mother Family Medical History: Cancer (colon Cancer in her 80s) Additional Family Medical History / Comment(s): Mother had colon cancer in her 80s. Father Family Medical History: Coronary Artery Disease (CAD) Sister(s) Family Medical History: Cancer (GI cancer), COPD, Osteoarthritis (OA) Additional Family Medical History / Comment(s): Sister had GI type of cancer. General Exam Limitations: no limitations Course Vital Signs 08/28/18 08/28/18 18:34 19:25 Temperature 98.2 F 98.4 F Pulse Rate 96 77 Respiratory 18 18 Rate Blood Pressure 118/76 123/95 O2 Sat by Pulse 100 98 Oximetry Medical Decision Making - Lab Data Result diagrams: 08/28/18 18:56 08/28/18 18:56 Lab Results 08/28/18 08/28/18 08/28/18 Range/Units 18:56 18:56 18:56 WBC 8.3 (3.8-10.6) k/uL RBC 3.40 L (4.30-5.90) m/uL Hgb 12.8 L (13.0-17.5) gm/dL Hct 38.9 L (39.0-53.0) % MCV 114.4 H (80.0-100.0) fL MCH 37.7 H (25.0-35.0) pg MCHC 32.9 (31.0-37.0) g/dL RDW 18.5 H (11.5-15.5) % Plt Count 322 (150-450) k/uL Neutrophils % 56 % Lymphocytes % 33 % Monocytes % 7 % Eosinophils % 2 % Basophils % 0 % Neutrophils # 4.7 (1.3-7.7) k/uL Lymphocytes # 2.8 (1.0-4.8) k/uL Monocytes # 0.5 (0-1.0) k/uL Eosinophils # 0.2 (0-0.7) k/uL Basophils # 0.0 (0-0.2) k/uL Anisocytosis Slight Macrocytosis Marked PT 9.8 (9.0-12.0) sec INR 0.9 (<1.2) APTT 25.2 (22.0-30.0) sec Sodium 136 L (137-145) mmol/L Potassium 3.1 L (3.5-5.1) mmol/L Chloride 103 (98-107) mmol/L Carbon Dioxide 27 (22-30) mmol/L Anion Gap 6 mmol/L BUN 5 L (9-20) mg/dL Creatinine 0.54 L (0.66-1.25) mg/dL Est GFR (CKD-EPI)AfAm >90 (>60 ml/min/1.73 sqM) Est GFR (CKD-EPI)NonAf >90 (>60 ml/min/1.73 sqM) Glucose 90 (74-99) mg/dL Calcium 8.6 (8.4-10.2) mg/dL Magnesium 1.9 (1.6-2.3) mg/dL Total Bilirubin 1.0 (0.2-1.3) mg/dL AST 41 (17-59) U/L ALT 27 (21-72) U/L Alkaline Phosphatase 69 (38-126) U/L Troponin I (0.000-0.034) ng/mL Total Protein 5.9 L (6.3-8.2) g/dL Albumin 3.2 L (3.5-5.0) g/dL Lipase 34 (23-300) U/L 08/28/18 Range/Units 18:56 WBC (3.8-10.6) k/uL RBC (4.30-5.90) m/uL Hgb (13.0-17.5) gm/dL Hct (39.0-53.0) % MCV (80.0-100.0) fL MCH (25.0-35.0) pg MCHC (31.0-37.0) g/dL RDW (11.5-15.5) % Plt Count (150-450) k/uL Neutrophils % % Lymphocytes % % Monocytes % % Eosinophils % % Basophils % % Neutrophils # (1.3-7.7) k/uL Lymphocytes # (1.0-4.8) k/uL Monocytes # (0-1.0) k/uL Eosinophils # (0-0.7) k/uL Basophils # (0-0.2) k/uL Anisocytosis Macrocytosis PT (9.0-12.0) sec INR (<1.2) APTT (22.0-30.0) sec Sodium (137-145) mmol/L Potassium (3.5-5.1) mmol/L Chloride (98-107) mmol/L Carbon Dioxide (22-30) mmol/L Anion Gap mmol/L BUN (9-20) mg/dL Creatinine (0.66-1.25) mg/dL Est GFR (CKD-EPI)AfAm (>60 ml/min/1.73 sqM) Est GFR (CKD-EPI)NonAf (>60 ml/min/1.73 sqM) Glucose (74-99) mg/dL Calcium (8.4-10.2) mg/dL Magnesium (1.6-2.3) mg/dL Total Bilirubin (0.2-1.3) mg/dL AST (17-59) U/L ALT (21-72) U/L Alkaline Phosphatase (38-126) U/L Troponin I <0.012 (0.000-0.034) ng/mL Total Protein (6.3-8.2) g/dL Albumin (3.5-5.0) g/dL Lipase (23-300) U/L Disposition Clinical Impression: Chest pain Disposition: ADMITTED IP TO THIS [facility] Condition: Fair Referrals: Mona Lora MD [Primary Care Provider] - 1-2 days Decision Time: 20:32
[2018-08-28 19:37] LABS: Anisocytosis Slight; Basophils % (A) 0 %; Eosinophils # (A) 0.2 k/uL (0-0.7); Eosinophils % (A) 2 %; HCT 38.9 % (39.0-53.0); HGB 12.8 gm/dL (13.0-17.5); Lymphocytes # (A) 2.8 k/uL (1.0-4.8); Lymphocytes % (A) 33 %; MCH 37.7 pg (25.0-35.0); MCHC 32.9 g/dL (31.0-37.0); MCV 114.4 fL (80.0-100.0); Macrocytosis Marked; Mean Platelet Volume 7.7; Monocytes # (A) 0.5 k/uL (0-1.0); Monocytes % (A) 7 %; Neutrophils # (A) 4.7 k/uL (1.3-7.7); Neutrophils % (A) 56 %; Platelet Count 322 k/uL (150-450); RDW 18.5 % (11.5-15.5); WBC 8.3 k/uL (3.8-10.6)
[2018-08-28 19:50] LABS: ALT 27 U/L (21-72); AST 41 U/L (17-59); Albumin 3.2 g/dL (3.5-5.0); Alkaline Phosphatase 69 U/L (38-126); Anion Gap 6 mmol/L; Blood Urea Nitrogen 5 mg/dL (9-20); Calcium 8.6 mg/dL (8.4-10.2); Carbon Dioxide 27 mmol/L (22-30); Chloride 103 mmol/L (98-107); Glucose 90 mg/dL (74-99); Lipase 34 U/L (23-300); Magnesium 1.9 mg/dL (1.6-2.3); Potassium 3.1 mmol/L (3.5-5.1); Sodium 136 mmol/L (137-145); Total Protein 5.9 g/dL (6.3-8.2)
[2018-08-28 20:04] LABS: INR 0.9 (<1.2); Partial Thromboplastin Time 25.2 sec (22.0-30.0); Prothrombin Time 9.8 sec (9.0-12.0)
--- NOTE | 2018-08-28 20:04 | XR ---
EXAMINATION: XR chest 2V DATE AND TIME: 08/28/2018 7:34 PM CLINICAL INDICATION: [facility]; Chest Pain TECHNIQUE: Departmental protocol COMPARISON: 11/27/2017 FINDINGS: The lungs are clear. The pleural spaces are negative. The cardiac silhouette is not enlarged. The remainder of the mediastinal silhouette is remarkable for evidence of a 9 cm hiatal hernia, seen on the prior study. The skeletal structures and soft tissues are negative for acute findings. IMPRESSION: NO ACUTE PROCESS.
[2018-08-28] MEDS ORDERED: POTASSIUM CHLORIDE ER 20 MEQ TAB.ER PO STA (20:26)
[2018-08-28] MEDS ORDERED: NITROGLYCERIN SL TABS 0.4 MG TAB SUBLINGUAL PRN (20:28)
[2018-08-28] MEDS ORDERED: ACETAMINOPHEN TAB 325 MG TAB PO PRN (22:04)
[2018-08-28] MEDS: HEPARIN SODIUM,PORCINE 5,000 UNIT/ML 1 ML VIAL SQ SCH (23:25)
[2018-08-29 06:20] LABS: Cholesterol 201 mg/dL (<200); HDL Cholesterol 32 mg/dL (40-60); LDL Cholesterol,Calculated 135 mg/dL (0-99); Triglycerides 172 mg/dL (<150)
[2018-08-29] MEDS ORDERED: ASPIRIN 325 MG TAB PO SCH (09:00)
[2018-08-29] MEDS ORDERED: REGADENOSON 0.4 MG/5 ML SYRINGE IV ONE (09:51)
[2018-08-29] MEDS ORDERED: CAFFEINE CITRATE 60 MG/3 ML VIAL IV PRN (09:51)
[2018-08-29] MEDS ORDERED: AMINOPHYLLINE 500 MG/20 ML VIAL IV PRN (09:51)
[2018-08-29] MEDS ORDERED: NITROGLYCERIN SL TABS 0.4 MG TAB SUBLINGUAL PRN (09:55)
[2018-08-29] MEDS ORDERED: FLUTICASONE 50MCG/SPRAY NASAL 16GM EA NOSTRIL SCH (10:00)
[2018-08-29] MEDS ORDERED: PANTOPRAZOLE 40 MG TABLET PO SCH (10:00)
[2018-08-29] MEDS ORDERED: DIPYRIDAMOLE 50 MG in SODIUM CHLORIDE 0.9% 40 ML IV ONE (10:00)
[2018-08-29] MEDS ORDERED: METOPROLOL TARTRATE 50 MG TAB PO SCH (10:00)
[2018-08-29] MEDS ORDERED: ASPIRIN 81 MG PO SCH (10:00)
[2018-08-29] MEDS ORDERED: LISINOPRIL 20 MG TAB PO SCH (10:00)
[2018-08-29] MEDS ORDERED: amLODIPine 5 MG TAB PO SCH (10:00)
[2018-08-29] MEDS ORDERED: CLOPIDOGREL 75 MG TAB PO SCH (10:00)
--- NOTE | 2018-08-29 11:13 | P.CRDCN ---
History of Present Illness History of present illness: This is a pleasant 53-year-old male past medical history significant for coronary artery disease in the setting of an acute myocardial infarction in April 2006 with stent placement to the LAD, stent placement to the RCA in May 2006 and recent stent placement to the second OM and mid RCA in November 2017. He also has dyslipidemia, hypertension, arthritis, ischemic cardiomyopa thy and unfortunately continues to smoke. He states he does have a history of significant alcohol abuse but quit drinking 3 weeks ago. He follows in the office with Dr. Montemayor. We have been asked to see him in consultation secondary to chest discomfort. He did yard work at home on Monday, which is new for him. Since his heart attack in 2018 he has been very sedentary. While doing yard work he felt increasingly fatigued and had to take frequent breaks. He had no chest pain or shortness of breath. However yesterday while driving in the car he started feeling numbness and tingling in both of his hands then a tightness in his chest, pain at the base of his neck posteriorly and a headache. When he got home he decided to take a nap. He lay down for about 20 minutes and his symptoms persisted so he took at SL nitro and his symptoms subsided. For that reason he decided to come to the emergency department for further evaluation and rule out another heart attack. He has had no further symptoms of chest discomfort since arriving at the hospital. EKG reveals sinus mechanism with nonspecific ST changes in the anterolateral leads. Chest x-ray is negative for an acute cardiopulmonary process. Laboratory data reviewed, WBC 8.3, hemoglobin 12.8, platelets 322, sodium 136, potassium 3.0, creatinine 0.54, magnesium 1.9, cardiac enzymes negative 3, LDL 135 and HDL 32. Current cardiac medications include aspirin 81 mg daily, amlodipine 5 mg daily, Plavix 75 mg daily, Lopressor 50 mg twice a day and lisinopril 40 mg daily. Most recent echocardiogram obtained August 2017 revealed overall improved left ventricular systolic function with ejection fraction 65-70%. His ejection fraction f has been documented as low as 45%. At the time of my exam: CONSTITUTIONAL: Denies fever. Denies chills. EYES: Denies blurred vision. Denies vision changes. Denies eye pain. EARS, NOSE, MOUTH & THROAT: Denies headache. Denies sore throat. Denies ear pain. CARDIOVASCULAR: Denies chest pain. Denies shortness of breath. Denies orthopnea. Denies PND. Denies palpitations. RESPIRATORY: Denies cough. GASTROINTESTINAL: Denies abdominal pain. Denies diarrhea. Denies constipation. Denies nausea. Denies vomiting. MUSCULOSKELETAL: Denies myalgias. INTEGUMENTARY: Denies pruitis. Denies rash. NEUROLOGIC: Denies numbness. Denies tingling. Denies weakness. PSYCHIATRIC: Denies anxiety. Denies depression. ENDOCRINE: Complains of fatigue. Denies weight change. Denies polydipsia. Denies polyurina. GENITOURINARY: Denies burning, hematuria or urgency with micturation. HEMATOLOGIC: Denies history of anemia. Denies bleeding. Blood pressure 132/91 heart rate 72 afebrile maintaining oxygen saturation on r oom air GENERAL: This is a 53-year-old male in no apparent distress at the time of my examination. HEENT: Head is atraumatic, normocephalic. Pupils are equal, round. Sclerae anicteric. Conjunctivae are clear. Mucous membranes of the mouth are moist. Neck is supple. There is no jugular venous distention. No carotid bruit is heard. LUNGS: Clear to auscultation no wheezes, rales or rhonchi. No chest wall tenderness is noted on palpation or with deep breathing. HEART: Regular rate and rhythm without murmurs, rubs or gallops. S1 and S2 heard. ABDOMEN: Soft, nontender. Bowel sounds are heard. No organomegaly noted. EXTREMITIES: No evidence of peripheral edema and no calf tenderness noted. VASCULAR: Radial and dorsalis pedis pulses palpated, no evidence of clubbing. NEUROLOGIC: Patient is awake, alert and oriented x3. ASSESSMENT Chest discomfort. An acute coronary event has been ruled out. Hypokalemia History of significant coronary artery disease, multivessel most recent stent placement November 2017 currently maintained on dual antiplatelet therapy. He completed a low level exercise stress test in the office after recent stent placement. History of ischemic cardiomyopathy, most recent documented LV function was normal. Hypertension Dyslipidemia Chronic nicotine dependence History of alcohol abuse. Last drink was 3 weeks ago. PLAN An acute coronary event has been ruled out. Obtain 2-D echocardiogram and Doppler study to assess cardiac structure and function. Resume atorvastatin 80 mg daily. Continue to replace potassium per protocol. Perform Lexiscan stress test to assess for reversible cardiac ischemia. Further recommendations to follow based upon clinical course. Smoking cessation strongly recommended along with ongoing alcohol cessation. Thank you kindly for this consultation. Nurse Practitioner note has been reviewed, I agree with a documented findings a nd plan of care. Patient was seen and examined. Past Medical History Past Medical History: Coronary Artery Disease (CAD), Hyperlipidemia, Hypertension, Myocardial Infarction ([place]), Osteoarthritis (OA) Additional Past Medical History / Comment(s): Hypertension, coronary artery disease, hyperlipidemia, previous history of rectal abscess, diverticular disease/diverticulitis Last Myocardial Infarction Date:: 05/21/2016 History of Any Multi-Drug Resistant Organisms: None Reported Past Surgical History: Heart Catheterization With Stent Additional Past Surgical History / Comment(s): surg. for diverticulitis, bowel reconstruction - colostomy and reversal. 5 stents Past Anesthesia/Blood Transfusion Reactions: No Reported Reaction Additional Past Anesthesia/Blood Transfusion Reaction / Comment(s): hallucinated after aa. past blood transfusion-no reaction Date of Last Stent Placement:: 05-22-16 Smoking Status: Current every day smoker - Past Family History Mother Sister(s) Family Medical History: Cancer Brother(s) Family Medical History: Cancer, Osteoarthritis (OA) Additional Family Medical History / Comment(s): Patient has 2 brothers with colon cancer. Mother Family Medical History: Cancer Additional Family Medical History / Comment(s): Mother had colon cancer in her 80s. Father Family Medical History: Coronary Artery Disease (CAD) Sister(s) Family Medical History: Cancer, COPD, Osteoarthritis (OA) Additional Family Medical History / Comment(s): Sister had GI type of cancer. Medications and Allergies Home Medications Medication Instructions Recorded Confirmed Type Metoprolol Tartrate [Lopressor] 50 mg PO BID 03/17/17 08/28/18 History Aspirin EC [Ecotrin Low Dose] 81 mg PO DAILY 11/27/17 08/28/18 History amLODIPine [Norvasc] 5 mg PO DAILY 11/27/17 08/28/18 History Clopidogrel [Plavix] 75 mg PO DAILY #30 tab 11/29/17 08/28/18 Rx Nitroglycerin Sl Tabs [Nitrostat] 0.4 mg SUBLINGUAL Q5M PRN #3 tab 11/29/17 08/28/18 Rx Fluticasone Nasal [place] [Flonase 1 spray EA NOSTRIL DAILY 08/28/18 08/28/18 History Nasal [place]] Lisinopril 40 mg PO DAILY 08/28/18 08/28/18 History Omeprazole 20 mg PO DAILY 08/28/18 08/28/18 History traZODone HCL 50 mg PO HS 08/28/18 08/28/18 History Allergies Allergy/AdvReac Type Severity Reaction Status Date / Time No Known Allergies Allergy Verified 08/28/18 21:45 Physical Exam Vitals: Vital Signs Temp Pulse Pulse Resp BP BP BP 08/29/18 07:20 97.7 F 72 18 132/91 08/29/18 04:00 98.2 F 69 18 110/75 08/29/18 03:50 18 08/29/18 00:00 98.2 F 74 18 132/90 08/28/18 22:36 18 08/28/18 21:22 98.4 F 68 18 126/90 08/28/18 19:25 98.4 F 77 18 123/95 08/28/18 18:34 98.2 F 96 18 118/76 Pulse Ox 08/29/18 07:20 98 08/29/18 04:00 98 08/29/18 03:50 08/29/18 00:00 98 08/28/18 22:36 08/28/18 21:22 99 08/28/18 19:25 98 08/28/18 18:34 100 Intake and Output 08/28/18 08/29/18 08/29/18 22:59 06:59 14:59 Other: # Voids 1 Weight 90.718 kg Results 08/28/18 18:56 08/29/18 05:55 Cardiac Enzymes 08/28/18 08/28/18 08/29/18 Range/Units 18:56 18:56 00:59 AST 41 (17-59) U/L Troponin I <0.012 <0.012 (0.000-0.034) ng/mL 08/29/18 Range/Units 05:55 AST (17-59) U/L Troponin I <0.012 (0.000-0.034) ng/mL Coagulation 08/28/18 Range/Units 18:56 PT 9.8 (9.0-12.0) sec APTT 25.2 (22.0-30.0) sec Lipids 08/29/18 Range/Units 05:55 Triglycerides 172 H (<150) mg/dL Cholesterol 201 H (<200) mg/dL HDL Cholesterol 32 L (40-60) mg/dL CBC 08/28/18 Range/Units 18:56 WBC 8.3 (3.8-10.6) k/uL RBC 3.40 L (4.30-5.90) m/uL Hgb 12.8 L (13.0-17.5) gm/dL Hct 38.9 L (39.0-53.0) % Plt Count 322 (150-450) k/uL Comprehensive Metabolic Panel 08/28/18 Range/Units 18:56 Sodium 136 L (137-145) mmol/L Potassium 3.1 L (3.5-5.1) mmol/L Chloride 103 (98-107) mmol/L Carbon Dioxide 27 (22-30) mmol/L BUN 5 L (9-20) mg/dL Creatinine 0.54 L (0.66-1.25) mg/dL Glucose 90 (74-99) mg/dL Calcium 8.6 (8.4-10.2) mg/dL AST 41 (17-59) U/L ALT 27 (21-72) U/L Alkaline Phosphatase 69 (38-126) U/L Total Protein 5.9 L (6.3-8.2) g/dL Albumin 3.2 L (3.5-5.0) g/dL Current Medications Generic Name Dose Route Start Last Admin Trade Name Freq PRN Reason Stop Dose Admin Acetaminophen 650 mg 08/28/18 22:04 08/28/18 22:11 Tylenol Tab PO 650 mg Q4HR PRN Administration Fever and/ or Pain Aspirin 325 mg 08/29/18 09:00 Aspirin PO DAILY MACARENA Heparin Sodium (Porcine) 5,000 unit 08/29/18 00:00 08/28/18 23:25 Heparin SQ 5,000 unit Q8HR MACARENA Administration Nitroglycerin 0.4 mg 08/28/18 20:28 Nitrostat SUBLINGUAL Q5M PRN Chest Pain Intake and Output 08/28/18 08/29/18 08/29/18 22:59 06:59 14:59 Other: # Voids 1 Weight 90.718 kg 08/28/18 18:56 08/28/18 18:56
[2018-08-29] MEDS ORDERED: ATORVASTATIN 80 MG TAB PO SCH (11:15)
--- NOTE | 2018-08-29 12:33 | EST ---
EXERCISE STRESS DATE OF SERVICE: 08/29/2018 AGE: 53 SEX: Male HT: 68" WT: 200 pounds PROTOCOL: Persantine Cardiolite STAGE: DURATION OF EXERCISE: HEART RATE REST: 67 BLOOD PRESSURE REST: 131/89 MAXIMUM HEART RATE ACHIEVED: 77 MAXIMUM BLOOD PRESSURE: 131/81 85% MPHR: 144 100% MPHR: 169 METS: INDICATIONS: Chest pain. CLINICAL INFORMATION: Patient was given Persantine infusion over a period of 4 minutes. Peak heart rate of 77 was achieved. Maximum blood pressure of 131/81 mmHg was noted. Resting EKG shows normal sinus rhythm with normal DC interval and QRS duration and normal ST-T waves. No ST-segment depression suggestive of ischemia is noted. Occasional PACs and PVCs are noted. FINAL IMPRESSION: There is no evidence of any ST-segment depression suggestive of ischemia during Persantine infusion. The results of the nuclear study will follow. RODRIGUEZ / MARYANNE: [id number] /
[2018-08-29] MEDS: POTASSIUM CHLORIDE ER 20 MEQ TAB.ER PO SCH ×2 (12:44→13:58)
[2018-08-29] MEDS: HEPARIN SODIUM,PORCINE 5,000 UNIT/ML 1 ML VIAL SQ SCH (12:44)
[2018-08-29 13:06] VITALS: BP 123/80; PULSE 82; TEMP 98.1
--- NOTE | 2018-08-29 13:19 | NM ---
EXAMINATION TYPE: NM stress persantine cardiolit DATE OF EXAM: 08/29/2018 COMPARISON: NONE HISTORY: Chest pain TECHNIQUE: After the intravenous administration of 10.29 mCi Tc 99m Sestamibi - Cardiolite resting S PECT images acquired 45 minutes post injection. The patient received 50 mg Persantine, 26.1 mCi Tc 99m Sestamibi - Stress images obtained 30 minutes post injection FINDINGS: Review of stress and rest SPECT images demonstrates no distinct perfusion abnormality. Gated analysi s shows normal wall motion with an estimated left ventricular ejection fraction of 71 %. TID calculat ed within normal limits measuring 1.05. IMPRESSION: No scintigraphic evidence for reversible ischemia.
--- NOTE | 2018-08-29 14:28 | P.HPIM ---
History of Present Illness H&P Date: 08/29/18 Chief Complaint: Chest pain HISTORY AND PHYSICAL AND DISCHARGE SUMMARY: This is a 53-year-old male patient of Dr. Lora and Dr. Montemayor with past medical history of coronary artery disease status post stenting of the LAD in May 2016 in the setting of acute anterior ST elevated [place] and subsequent stenting of the RCA. He presented in November 2017 for non-ST elevated myocardial infarction and underwent stenting of the second obtuse marginal and mid right coronary artery. Also history of tobacco use and dependence, hyperlipidemia, hypertension, osteoarthritis, gastroesophageal reflux disease, alcohol abuse, history of rectal abscess, diverticulitis status post colostomy and reversal. Patient developed chest pain along with numbness of his hands that lasted for a few minutes. He took a sublingual nitroglycerin with some improvement. He also had headache. His symptoms were similar to those when he had a previous heart a ttack and was concerned. Patient presented to [facility] emergency center for evaluation. EKG is a normal sinus rhythm with nonspecific ST changes in the anterolateral leads. Chest x-ray shows no acute process. WBC 8.3, hemoglobin 12.8, platelet count 322. Sodium 136, potassium 3.1, chloride 103, CO2 27, BUN 5 and creatinine 0.54, blood sugar 90. Lipase 34. Troponins have been negative on 3 draws. Triglycerides 172, cholesterol 201, HDL 32 and LDL 135. Patient states that he has been under increased stress as his asked for a divorce. He is willing to start Celexa which a prescription will be sent for him. He states he is actively trying to smoke and has Chantix at home. Patient was placed on the observation unit and consult with cardiology requested. Cardiology has ordered a Lexiscan stress test was negative for reversible ischemia. Echocardiogram was ordered as well The patient has been cleared for discharge by cardiology will be discharged home today in stable condition. Discharge Medication List Aspirin EC [Ecotrin Low Dose] 81 mg PO DAILY 11/27/17 [History] Nitroglycerin Sl Tabs [Nitrostat] 0.4 mg SUBLINGUAL Q5M PRN #3 tab 11/29/17 [Rx] Fluticasone Nasal [place] [Flonase Nasal [place]] 1 spray EA NOSTRIL DAILY 08/28/18 [History] Omeprazole 20 mg PO DAILY 08/28/18 [History] traZODone HCL 50 mg PO HS 08/28/18 [History] Atorvastatin [Lipitor] 80 mg PO DAILY #90 tab 08/29/18 [Rx] Citalopram Hydrobromide [CeleXA] 20 mg PO DAILY #30 tablet 08/29/18 [Rx] Clopidogrel [Plavix] 75 mg PO DAILY #30 tab 08/29/18 [Rx] Lisinopril 40 mg PO DAILY #90 tablet 08/29/18 [Rx] Metoprolol Tartrate [Lopressor] 50 mg PO BID #180 tab 08/29/18 [Rx] amLODIPine [Norvasc] 5 mg PO DAILY #90 tab 08/29/18 [Rx]. Review of Systems All systems: negative Constitutional: Denies anorexia, Denies chills, Denies fatigue, Denies fever, Denies lethargy, Denies malaise, Denies poor appetite, Denies weakness Eyes: denies blurred vision, denies pain Ears, nose, mouth and throat: Denies dental pain, Denies dysphagia, Denies headache, Denies mouth pain, Denies nasal congestion, Denies sore throat, Denies vertigo Cardiovascular: Reports chest pain, Denies decreased exercise tolerance, Denies dyspnea on exertion, Denies edema, Denies lightheadedness, Denies shortness of breath, Denies syncope Respiratory: Reports cough, Denies congestion, Denies cough with sputum, Denies excessive sputum, Denies hemoptysis, Denies home oxygen Gastrointestinal: Denies abdominal pain, Denies diarrhea, Denies loss of appetite, Denies nausea, Denies vomiting Genitourinary: Denies dysuria Musculoskeletal: Denies frequent falls, Denies gait dysfunction, Denies myalgias Integumentary: Denies pruritus, Denies rash, Denies wounds Neurological: Denies aphasia, Denies change in mentation, Denies numbness, Denies seizures, Denies weakness Psychiatric: Denies anxiety, Denies depression Endocrine: Denies fatigue, Denies weight change Past Medical History Past Medical History: Coronary Artery Disease (CAD), Hyperlipidemia, Hypertension, Myocardial Infarction ([place]), Osteoarthritis (OA) Additional Past Medical History / Comment(s): Hypertension, coronary artery d isease, hyperlipidemia, previous history of rectal abscess, diverticular disease/diverticulitis Last Myocardial Infarction Date:: 05/21/2016 History of Any Multi-Drug Resistant Organisms: None Reported Past Surgical History: Heart Catheterization With Stent Additional Past Surgical History / Comment(s): surg. for diverticulitis, bowel reconstruction - colostomy and reversal. 5 stents Past Anesthesia/Blood Transfusion Reactions: No Reported Reaction Additional Past Anesthesia/Blood Transfusion Reaction / Comment(s): hallucinated after aa. past blood transfusion-no reaction Date of Last Stent Placement:: 05-22-16 Smoking Status: Current every day smoker Additional Past Alcohol Use History / Comment(s): She was a smoker of one pack per day and is actively trying to quit. He has history of alcohol abuse and recently quit drinking 3 weeks ago. He smokes marijuana occasionally. - Past Family History Mother Sister(s) Family Medical History: Cancer Brother(s) Family Medical History: Cancer, Osteoarthritis (OA) Additional Family Medical History / Comment(s): Patient has 2 brothers with colon cancer. Mother Family Medical History: Cancer Additional Family Medical History / Comment(s): Mother had colon cancer in her 80s. Father Family Medical History: Coronary Artery Disease (CAD) Sister(s) Family Medical History: Cancer, COPD, Osteoarthritis (OA) Additional Family Medical History / Comment(s): Sister had GI type of cancer. Medications and Allergies Home Medications Medication Instructions Recorded Confirmed Type Aspirin EC [Ecotrin Low Dose] 81 mg PO DAILY 11/27/17 08/28/18 History Nitroglycerin Sl Tabs [Nitrostat] 0.4 mg SUBLINGUAL Q5M PRN #3 tab 11/29/17 08/28/18 Rx Fluticasone Nasal [place] [Flonase 1 spray EA NOSTRIL DAILY 08/28/18 08/28/18 H istory Nasal [place]] Omeprazole 20 mg PO DAILY 08/28/18 08/28/18 History traZODone HCL 50 mg PO HS 08/28/18 08/28/18 History Atorvastatin [Lipitor] 80 mg PO DAILY #90 tab 08/29/18 Rx Citalopram Hydrobromide [CeleXA] 20 mg PO DAILY #30 tablet 08/29/18 Rx Clopidogrel [Plavix] 75 mg PO DAILY #30 tab 08/29/18 Rx Lisinopril 40 mg PO DAILY #90 tablet 08/29/18 Rx Metoprolol Tartrate [Lopressor] 50 mg PO BID #180 tab 08/29/18 Rx amLODIPine [Norvasc] 5 mg PO DAILY #90 tab 08/29/18 Rx Allergies Allergy/AdvReac Type Severity Reaction Status Date / Time No Known Allergies Allergy Verified 08/28/18 21:45 Physical Exam Vitals: Vital Signs Temp Pulse Pulse Resp BP BP BP 08/29/18 07:20 97.7 F 72 18 132/91 08/29/18 04:00 98.2 F 69 18 110/75 08/29/18 03:50 18 08/29/18 00:00 98.2 F 74 18 132/90 08/28/18 22:36 18 08/28/18 21:22 98.4 F 68 18 126/90 08/28/18 19:25 98.4 F 77 18 123/95 08/28/18 18:34 98.2 F 96 18 118/76 Pulse Ox 08/29/18 07:20 98 08/29/18 04:00 98 08/29/18 03:50 08/29/18 00:00 98 08/28/18 22:36 08/28/18 21:22 99 08/28/18 19:25 98 08/28/18 18:34 100 Intake and Output 08/28/18 08/29/18 08/29/18 22:59 06:59 14:59 Other: # Voids 1 Weight 90.718 kg Gen: This is a 53-year-old male patient sitting up in the bed with no acute distress. No respiratory distress is noted. HEENT: Head is atraumatic, normocephalic. Pupils equal, round. Sclerae is anicteric. NECK: Supple. No JVD. No lymphadenopathy. No thyromegaly. LUNGS: Clear to auscultation. No wheezes or rhonchi. No intercostal retractions. HEART: Regular rate and rhythm. No murmur. ABDOMEN: Soft. Bowel sounds are present. No masses. No tenderness. EXTREMITIES: No pedal edema. No calf tenderness. NEUROLOGICAL: Patient is awake, alert and oriented x3. Cranial nerves 2 through 12 are grossly intact. Results CBC & Chem 7: 08/28/18 18:56 08/29/18 05:55 Labs: Abnormal Lab Results - Last 24 Hours (Table) 0408/28/18 08/29/18 Range/Units 18:56 18:56 05:55 RBC 3.40 L (4.30-5.90) m/uL Hgb 12.8 L (13.0-17.5) gm/dL Hct 38.9 L (39.0-53.0) % MCV 114.4 H (80.0-100.0) fL MCH 37.7 H (25.0-35.0) pg RDW 18.5 H (11.5-15.5) % Sodium 136 L (137-145) mmol/L Potassium 3.1 L (3.5-5.1) mmol/L BUN 5 L (9-20) mg/dL Creatinine 0.54 L (0.66-1.25) mg/dL Total Protein 5.9 L (6.3-8.2) g/dL Albumin 3.2 L (3.5-5.0) g/dL Triglycerides 172 H (<150) mg/dL Cholesterol 201 H (<200) mg/dL LDL Cholesterol, Calc 135 H (0-99) mg/dL HDL Cholesterol 32 L (40-60) mg/dL Thrombosis Risk Factor Assmnt - Choose All That Apply Each Factor Represents 1 point: Age 41-60 years Thrombosis Risk Factor Assessment Total Risk Factor Score: 1 Thrombosis Risk Factor Assessment Level: Low Risk Assessment and Plan Plan: 1. Chest pain. Acute coronary syndrome ruled out. Patient to follow-up with his tyre retreader, Dr. Montemayor. 2. History of known coronary artery disease post stenting of the LAD in May 2016 in the setting of acute anterior ST elevated IL and subsequent stenting of the RCA. He presented in November 2017 for non-ST elevated myocardial infarction and underwent stenting of the second obtuse marginal and mid right coronary artery. 3. Hypertensive cardiovascular disease, continue lisinopril 40 mg daily, Norvasc 5 mg daily, Lopressor 50 mg twice daily. 4. Hyperlipidemia. Continue atorvastatin 80 mg at bedtime. 5. History of bowel obstruction secondary to mechanical obstruction sigmoid area, post sigmoid colostomy performed 03/20/2017 with reversal performed August 2016 at [facility]. 6. Tobacco use and dependence. 7. Significant family history of colon cancer siblings and a mother 8. History of alcohol abuse. Patient states he quit drinking 3 weeks ago. 9. DVT prophylaxis. Heparin subcu. 10. GI prophylaxis omeprazole. Patient placed on the observation unit. Discharge plan: Return home Impression and plan of care have been directed as dictated by the signing physician. Patricia Da Silva nurse practitioner acting as scribe for signing sonido white.
[2018-08-29] MEDS ORDERED: traZODone HCL 50 MG TAB PO SCH (21:00)
--- NOTE | 2018-08-31 11:16 | ECHOF ---
Referral Reason:cp MEASUREMENTS -------- HEIGHT: 172.7 cm WEIGHT: 90.7 kg BP: 132/91 RVIDd: 2.8 cm (< 3.3) IVSd: 1.3 cm (0.6 - 1.1) LVIDd: 4.6 cm (3.9 - 5.3) LVPWd: 1.2 cm (0.6 - 1.1) IVSs: 1.6 cm LVIDs: 2.5 cm LVPWs: 1.6 cm LAESV Index (A-L): 27.73 ml/m Ao Diam: 2.5 cm (2.0 - 3.7) AV Cusp: 1.9 cm (1.5 - 2.6) LA Diam: 3.1 cm (2.7 - 3.8) MV EXCURSION: 13.536 mm (> 18.000) MV EF SLOPE: 86 mm/s (70 - 150) EPSS: 0.4 cm MV E Perry: 0.99 m/s MV DecT: 263 ms MV A Perry: 0.90 m/s MV E/A Ratio: 1.09 RAP: 5.00 mmHg RVSP: 11.95 mmHg FINDINGS -------- Sinus rhythm. This was a technically good study. The left ventricular size is normal. There is mild concentric left ventricular hypertrophy. Overa ll left ventricular systolic function is normal with, an EF between 55 - 60 %. The right ventricle is normal in size. Normal LA size by volume 22+/-6 ml/m2. The right atrial size is normal. Trace amount of aortic regurgitation. Mild mitral regurgitation is present. No regurgitation noted Unable to estimate RVSP due to inadequate TR jet spectral doppler profile. There is no pulmonic regurgitation present. The aortic root size is normal. IVC Not well visulized. There is no pericardial effusion. CONCLUSIONS -------- 1. Sinus rhythm. 2. This was a technically good study. 3. The left ventricular size is normal. 4. There is mild concentric left ventricular hypertrophy. 5. Overall left ventricular systolic function is normal with, an EF between 55 - 60 %. 6. The right ventricle is normal in size. 7. Normal LA size by volume 22+/-6 ml/m2. 8. The right atrial size is normal. 9. Trace amount of aortic regurgitation. 10. Mild mitral regurgitation is present. 11. No regurgitation noted 12. Unable to estimate RVSP due to inadequate TR jet spectral doppler profile. 13. There is no pulmonic regurgitation present. 14. The aortic root size is normal. 15. IVC Not well visulized. 16. There is no pericardial effusion. CUT OFF SAWYER LOG: Shy Richards RDCS
== END 2018-08-29 16:08 | disposition home or self-care (01) ==
LOC: EC 18:34 → 1SOBS 20:29
PROVIDERS: ADMIT Family Medicine; ATTEND Family Medicine
DX: R07.89 Other chest pain (principal); E87.6 Hypokalemia; E78.5 Hyperlipidemia, unspecified; I10 Essential (primary) hypertension; I25.10 Atherosclerotic heart disease of native coronary artery without angina pectoris; I25.5 Ischemic cardiomyopathy; Z71.6 Tobacco abuse counseling; F17.210 Nicotine dependence, cigarettes, uncomplicated; I11.9 Hypertensive heart disease without heart failure; K21.9 Gastro-esophageal reflux disease without esophagitis; M19.90 Unspecified osteoarthritis, unspecified site; Z95.5 Presence of coronary angioplasty implant and graft; I25.2 Old myocardial infarction; Z79.02 Long term (current) use of antithrombotics/antiplatelets; Z79.82 Long term (current) use of aspirin; Z79.899 Other long term (current) drug therapy; Z80.0 Family history of malignant neoplasm of digestive organs; Z82.49 Family history of ischemic heart disease and other diseases of the circulatory system; Z82.5 Family history of asthma and other chronic lower respiratory diseases
CPT/HCPCS: 96372 ×2; 99285; 36415; 93005; 93017; 93306; 80061; 80053; 83690; 83735; 84132; 84484 ×2; 85025; 85610; 85730; 71046; 78452; G0378 ×2; A9500; J1644 ×2

== ENCOUNTER 2018-10-11 22:15 | Inpatient (IN) | payer MEDICAID, OTHER ==
[2018-10-11] MEDS ORDERED: LORazepam 2 MG/ML INJ IV STA (22:52)
[2018-10-11] MEDS ORDERED: HALOPERIDOL LACTATE 5 MG/ML 1 ML VIAL IM STA (22:52)
[2018-10-11] MEDS ORDERED: SODIUM CHLORIDE 0.9% 2,000 ML IV ONE (22:54)
--- NOTE | 2018-10-11 22:54 | ED ---
Psych HPI - General Chief Complaint: Psychiatric Symptoms Stated Complaint: Suicidal Time Seen by Provider: 10/11/18 22:39 Source: patient, family, EMS Mode of arrival: EMS Limitations: altered mental status (UnCooperative with history and physical) - History of Present Illness Initial Comments: This patient is a 53-year-old man brought by ambulance from his home. The patient is not fully cooperative with the history and physical exam. It is reported that he had told first responders that he had been in his garage with the car running for between 4 and 5 hours. He does admit to feeling suicidal. He states that he is angry that he failed. Patient admits drinking alcohol. He is denying other symptoms. MD Complaint: suicidal ideation, feels depressed -: hour(s) Associated Psychiatric Symptoms: depression, suicidal ideation History of same: Yes Quality: getting worse Improves With: none Context: recent alcohol abuse Associated Symptoms: denies other symptoms - Related Data Home Medications Medication Instructions Recorded Confirmed Aspirin EC [Ecotrin Low Dose] 81 mg PO DAILY 11/27/17 08/28/18 Fluticasone Nasal [place] [Flonase 1 spray EA NOSTRIL DAILY 08/28/18 08/28/18 Nasal [place]] Omeprazole 20 mg PO DAILY 08/28/18 08/28/18 traZODone HCL 50 mg PO HS 08/28/18 08/28/18 Previous Rx's Medication Instructions Recorded Nitroglycerin Sl Tabs [Nitrostat] 0.4 mg SUBLINGUAL Q5M PRN #3 tab 11/29/17 Atorvastatin [Lipitor] 80 mg PO DAILY #90 tab 08/29/18 Citalopram Hydrobromide [CeleXA] 20 mg PO DAILY #30 tablet 08/29/18 Clopidogrel [Plavix] 75 mg PO DAILY #30 tab 08/29/18 Lisinopril 40 mg PO DAILY #90 tablet 08/29/18 Metoprolol Tartrate [Lopressor] 50 mg PO BID #180 tab 08/29/18 amLODIPine [Norvasc] 5 mg PO DAILY #90 tab 08/29/18 Allergies Allergy/AdvReac Type Severity Reaction Status Date / Time No Known Allergies Allergy Verified 10/11/18 22:38 Review of Systems ROS Statement: Those systems with pertinent positive or pertinent negative responses have been documented in the HPI. ROS Other: All systems not noted in ROS Statement are negative. Limitations: ROS unobtainable due to patients medical condition Past Medical History Past Medical History: Coronary Artery Disease (CAD), Hyperlipidemia, Hypertension, Myocardial Infarction ([place]), Osteoarthritis ([place]) Additional Past Medical History / Comment(s): Hypertension, coronary artery dise ase, hyperlipidemia, previous history of rectal abscess, diverticular disease/diverticulitis Last Myocardial Infarction Date:: 05/21/2016 History of Any Multi-Drug Resistant Organisms: None Reported Past Surgical History: Heart Catheterization With Stent Additional Past Surgical History / Comment(s): surg. for diverticulitis, bowel reconstruction - colostomy and reversal. 5 stents Past Anesthesia/Blood Transfusion Reactions: No Reported Reaction Additional Past Anesthesia/Blood Transfusion Reaction / Comment(s): hallucinated after aa. past blood transfusion-no reaction Date of Last Stent Placement:: 05-22-16 Past Psychological History: No Psychological Hx Reported Smoking Status: Current every day smoker Past Alcohol Use History: None Reported Past Drug Use History: None Reported - Past Family History Mother Sister(s) Family Medical History: Cancer Brother(s) Family Medical History: Cancer, Osteoarthritis (OA) Additional Family Medical History / Comment(s): Patient has 2 brothers with colon cancer. Mother Family Medical History: Cancer Additional Family Medical History / Comment(s): Mother had colon cancer in her 80s. Father Family Medical History: Coronary Artery Disease (CAD) Sister(s) Family Medical History: Cancer, COPD, Osteoarthritis (OA) Additional Family Medical History / Comment(s): Sister had GI type of cancer. General Exam Limitations: no limitations General appearance: alert, in no apparent distress Head exam: Present: atraumatic, normocephalic Eye exam: Present: normal appearance, PERRL, EOMI, nystagmus. Absent: scleral icterus, conjunctival injection ENT exam: Present: mucous membranes dry Neck exam: Present: full ROM Respiratory exam: Present: normal lung sounds bilaterally. Absent: respiratory distress, wheezes, rales, rhonchi, stridor Cardiovascular Exam: Present: normal rhythm, tachycardia, normal heart sounds. Absent: systolic murmur, diastolic murmur, rubs, gallop GI/Abdominal exam: Present: soft, normal bowel sounds. Absent: distended, tenderness, guarding, rebound, rigid, mass, pulsatile mass, hernia exam: Present: normal inspection Extremities exam: Present: normal inspection, normal capillary refill. Absent: pedal edema, calf tenderness Neurological exam: Present: alert Psychiatric exam: Present: depressed, agitated, suicidal ideation. Absent: anxious, flat affect, manic, homicidal ideation Skin exam: Present: warm, dry, intact, normal color. Absent: rash Course Vital Signs 10/11/18 10/11/18 10/11/18 22:16 23:17 23:34 Temperature 97.4 F L 98.1 F Pulse Rate 123 H 112 H 100 Respiratory 20 20 16 Rate Blood Pressure 126/109 126/82 121/83 O2 Sat by Pulse 97 97 97 Oximetry 10/12/18 10/12/18 10/12/18 00:00 01:00 02:00 Temperature 98 F 98 F 98.2 F Pulse Rate 100 97 91 Respiratory 20 20 20 Rate Blood Pressure 139/89 133/73 126/72 O2 Sat by Pulse 97 97 99 Oximetry 10/12/18 10/12/18 10/12/18 03:00 04:00 05:00 Temperature Pulse Rate 78 93 90 Respiratory 20 20 20 Rate Blood Pressure 129/88 113/79 136/95 O2 Sat by Pulse 97 97 97 Oximetry Procedures - Restraint - Face to Face Restraint Occurrence 1 Patient's Immediate Situation: Endangers self safety, Endangers others' safety, Endangers staff safety Patient's Immediate Situation - Comment: Patient is a 53-year-old man brought in following a reported suicide attempts. He does appear intoxicated. He has made threats against staff safety. He is uncooperative with the history and physical and not responding to de-escalation. Patient's Reaction to the Intervention: Uncooperative, Angry, Hostile Patient's Medical & Behavioral Condition: Awake, Agitated Need to Continue or Terminate Restraint or Seclusion: Continue Face to Face Eval of Restraint Date: 10/11/18 Face to Face Eval of Restraint Time: 22:22 Medical Decision Making - Lab Data Result diagrams: 10/11/18 22:35 10/11/18 22:35 Lab Results 10/11/18 10/11/18 10/11/18 Range/Units 22:35 22:35 22:35 WBC 8.2 (3.8-10.6) k/uL RBC 4.05 L (4.30-5.90) m/uL Hgb 13.6 (13.0-17.5) gm/dL Hct 43.0 (39.0-53.0) % MCV 106.2 H D (80.0-100.0) fL MCH 33.7 (25.0-35.0) pg MCHC 31.7 (31.0-37.0) g/dL RDW 16.0 H (11.5-15.5) % Plt Count 369 (150-450) k/uL Neutrophils % 60 % Lymphocytes % 31 % Monocytes % 5 % Eosinophils % 1 % Basophils % 0 % Neutrophils # 4.9 (1.3-7.7) k/uL Lymphocytes # 2.6 (1.0-4.8) k/uL Monocytes # 0.4 (0-1.0) k/uL Eosinophils # 0.1 (0-0.7) k/uL Basophils # 0.0 (0-0.2) k/uL Hypochromasia Slight Anisocytosis Slight Macrocytosis Moderate Carbon Monoxide, Quant 6.8 (<10.0) % Sodium 138 (137-145) mmol/L Potassium 3.5 (3.5-5.1) mmol/L Chloride 103 (98-107) mmol/L Carbon Dioxide 21 L (22-30) mmol/L Anion Gap 14 mmol/L BUN 3 L (9-20) mg/dL Creatinine 0.69 (0.66-1.25) mg/dL Est GFR (CKD-EPI)AfAm >90 (>60 ml/min/1.73 sqM) Est GFR (CKD-EPI)NonAf >90 (>60 ml/min/1.73 sqM) Glucose 154 H (74-99) mg/dL Calcium 9.2 (8.4-10.2) mg/dL Total Bilirubin 0.6 (0.2-1.3) mg/dL AST 28 (17-59) U/L ALT 14 L (21-72) U/L Alkaline Phosphatase 123 (38-126) U/L Total Protein 5.9 L (6.3-8.2) g/dL Albumin 3.3 L (3.5-5.0) g/dL Salicylates <1.0 mg/dL Urine Opiates Screen (NotDetected) Ur Oxycodone Screen (NotDetected) Urine Methadone Screen (NotDetected) Ur Propoxyphene Screen (NotDetected) Acetaminophen <10.0 ug/mL Ur Barbiturates Screen (NotDetected) U Tricyclic Antidepress (NotDetected) Ur Phencyclidine Scrn (NotDetected) Ur Amphetamines Screen (NotDetected) U Methamphetamines Scrn (NotDetected) U Benzodiazepines Scrn (NotDetected) Urine Cocaine Screen (NotDetected) U Marijuana (THC) Screen (NotDetected) Serum Alcohol 213 H* mg/dL 10/11/18 Range/Units 22:45 WBC (3.8-10.6) k/uL RBC (4.30-5.90) m/uL Hgb (13.0-17.5) gm/dL Hct (39.0-53.0) % MCV (80.0-100.0) fL MCH (25.0-35.0) pg MCHC (31.0-37.0) g/dL RDW (11.5-15.5) % Plt Count (150-450) k/uL Neutrophils % % Lymphocytes % % Monocytes % % Eosinophils % % Basophils % % Neutrophils # (1.3-7.7) k/uL Lymphocytes # (1.0-4.8) k/uL Monocytes # (0-1.0) k/uL Eosinophils # (0-0.7) k/uL Basophils # (0-0.2) k/uL Hypochromasia Anisocytosis Macrocytosis Carbon Monoxide, Quant (<10.0) % Sodium (137-145) mmol/L Potassium (3.5-5.1) mmol/L Chloride (98-107) mmol/L Carbon Dioxide (22-30) mmol/L Anion Gap mmol/L BUN (9-20) mg/dL Creatinine (0.66-1.25) mg/dL Est GFR (CKD-EPI)AfAm (>60 ml/min/1.73 sqM) Est GFR (CKD-EPI)NonAf (>60 ml/min/1.73 sqM) Glucose (74-99) mg/dL Calcium (8.4-10.2) mg/dL Total Bilirubin (0.2-1.3) mg/dL AST (17-59) U/L ALT (21-72) U/L Alkaline Phosphatase (38-126) U/L Total Protein (6.3-8.2) g/dL Albumin (3.5-5.0) g/dL Salicylates mg/dL Urine Opiates Screen Not Detected (NotDetected) Ur Oxycodone Screen Not Detected (NotDetected) Urine Methadone Screen Not Detected (NotDetected) Ur Propoxyphene Screen Not Detected (NotDetected) Acetaminophen ug/mL Ur Barbiturates Screen Not Detected (NotDetected) U Tricyclic Antidepress Not Detected (NotDetected) Ur Phencyclidine Scrn Not Detected (NotDetected) Ur Amphetamines Screen Not Detected (NotDetected) U Methamphetamines Scrn Not Detected (NotDetected) U Benzodiazepines Scrn Not Detected (NotDetected) Urine Cocaine Screen Not Detected (NotDetected) U Marijuana (THC) Screen Not Detected (NotDetected) Serum Alcohol mg/dL - EKG Data -: EKG Interpreted by Id EKG shows normal: sinus rhythm, axis (Normal), intervals (normal), QRS complexes (normal), ST-T waves (normal) Rate: tachycardia (Rate 125 bpm) Interpretation: other (Possible old septal infarct) Disposition Clinical Impression: Attempted suicide, Alcohol intoxication Disposition: ADMITTED IP TO THIS [facility] Condition: Serious Is patient prescribed a controlled substance at d/c from ED?: No Referrals: None,Stated [REFERRING] - 1-2 days
[2018-10-11 22:55] LABS: Anisocytosis Slight; Basophils % (A) 0 %; Eosinophils # (A) 0.1 k/uL (0-0.7); Eosinophils % (A) 1 %; HGB 13.6 gm/dL (13.0-17.5); Hypochromasia Slight; Lymphocytes # (A) 2.6 k/uL (1.0-4.8); Lymphocytes % (A) 31 %; MCH 33.7 pg (25.0-35.0); MCHC 31.7 g/dL (31.0-37.0); Macrocytosis Moderate; Mean Platelet Volume 6.8; Monocytes # (A) 0.4 k/uL (0-1.0); Monocytes % (A) 5 %; Neutrophils # (A) 4.9 k/uL (1.3-7.7); Neutrophils % (A) 60 %; Platelet Count 369 k/uL (150-450); RBC 4.05 m/uL (4.30-5.90); WBC 8.2 k/uL (3.8-10.6)
[2018-10-11 22:59] LABS: ALT 14 U/L (21-72); AST 28 U/L (17-59); Acetaminophen <10.0 ug/mL; Albumin 3.3 g/dL (3.5-5.0); Alkaline Phosphatase 123 U/L (38-126); Anion Gap 14 mmol/L; Blood Urea Nitrogen 3 mg/dL (9-20); Calcium 9.2 mg/dL (8.4-10.2); Carbon Dioxide 21 mmol/L (22-30); Chloride 103 mmol/L (98-107); Glucose 154 mg/dL (74-99); Potassium 3.5 mmol/L (3.5-5.1); Salicylate <1.0 mg/dL; Sodium 138 mmol/L (137-145); Total Bilirubin 0.6 mg/dL (0.2-1.3); Total Protein 5.9 g/dL (6.3-8.2)
[2018-10-11 23:00] LABS: MCV 106.2 fL (80.0-100.0)
[2018-10-11 23:05] LABS: Alcohol 213 mg/dL
[2018-10-11 23:10] LABS: Amphetamine Screen,Urine Not Detected (NotDetected); Barbiturate Screen,Urine Not Detected (NotDetected); Benzodiazepines Screen,Urine Not Detected (NotDetected); Cocaine Screen,Urine Not Detected (NotDetected); Methadone Screen, Urine Not Detected (NotDetected); Opiate Screen,Urine Not Detected (NotDetected); Oxycodone Screen, Urine Not Detected (NotDetected); Phencyclidine Screen,Urine Not Detected (NotDetected); Tricyclic Antidepressant,Urine Not Detected (NotDetected); Urn Cannabinoid Scrn Not Detected (NotDetected)
[2018-10-12] MEDS ORDERED: MAGNESIUM HYDROXIDE 2,400 MG/10 ML CUP PO PRN (07:32)
[2018-10-12] MEDS ORDERED: MAG HYDROX/AL HYDROX/SIMETH 30 ML CUP PO PRN (07:32)
[2018-10-12] MEDS ORDERED: LORazepam 1 MG TAB PO PRN (07:32)
[2018-10-12] MEDS ORDERED: ACETAMINOPHEN TAB 325 MG TAB PO PRN (07:32)
[2018-10-12] MEDS ORDERED: ZIPRASIDONE 20 MG VIAL IM PRN (07:32)
[2018-10-12 08:31] VITALS: BMI 25.2
[2018-10-12] MEDS: NICOTINE 21MG/24HR PATCH TRANSDERM SCH (09:22)
--- NOTE | 2018-10-12 14:16 | P.HPMEDMHU ---
History of Present Illness H&P Date: 10/12/18 Chief Complaint: [place] [facility] [facility] [place] The patient is a 53-year-old male was admitted to the mental health unit after being involuntarily petition by his for suicidal ideation and attempt with plan, apparently the patient tried asphyxiate himself by running his car in his enclosed garage for 5- 6 hours with his window down. Patient's found him sleeping in the living room and then alerted local authorities the patient reports having increasing depression and increasing stressors since his asked for a divorce approximately 6 months ago, he denies any hallucinations, denies any homicidal ideation or delusions. He reports prior suicide attempt with taking pills. The patient also has a history of [place] essential hypertension and coronary artery disease but denies any chest pain shortness of breath nausea vomiting abdominal pain or any other somatic complaints. Of note the patient was recently here last month when he had presented for chest pain and he had a echocardiogram and Lexiscan stress test that were performed that was negative for any suggestion of any acute coronary syndrome negative for any reversible ischemia. The patient has apparently been noncompliant with his medications In the ER the patient had a conference of workup he was noted to have elevated blood alcohol level 213 Review of Systems Pertinent positives per HPI all other systems is negative Past Medical History Past Medical History: Coronary Artery Disease (CAD), Hyperlipidemia, Hypertens ion, Myocardial Infarction ([place]), Osteoarthritis (OA) Additional Past Medical History / Comment(s): Hypertension, coronary artery disease, hyperlipidemia, previous history of rectal abscess, diverticular disease/diverticulitis Last Myocardial Infarction Date:: 05/21/2016 History of Any Multi-Drug Resistant Organisms: None Reported Past Surgical History: Heart Catheterization With Stent Additional Past Surgical History / Comment(s): surg. for diverticulitis, bowel reconstruction - colostomy and reversal. 5 stents Past Anesthesia/Blood Transfusion Reactions: No Reported Reaction Additional Past Anesthesia/Blood Transfusion Reaction / Comment(s): hallucinated after aa. past blood transfusion-no reaction Date of Last Stent Placement:: 05-22-16 Past Psychological History: No Psychological Hx Reported Smoking Status: Current every day smoker Past Alcohol Use History: Abuse Additional Past Alcohol Use History / Comment(s): Relasped on alcohol 10/11/18 Past Drug Use History: Marijuana - Past Family History Mother Sister(s) Family Medical History: Cancer Brother(s) Family Medical History: Cancer, Osteoarthritis (OA) Additional Family Medical History / Comment(s): Patient has 2 brothers with colon cancer. Mother Family Medical History: Cancer Additional Family Medical History / Comment(s): Mother had colon cancer in her 80s. Father Family Medical History: Coronary Artery Disease (CAD) Sister(s) Family Medical History: Cancer, COPD, Osteoarthritis (OA) Additional Family Medical History / Comment(s): Sister had GI type of cancer. Medications and Allergies Home Medications Medication Instructions Recorded Confirmed Type Nitroglycerin Sl Tabs [Nitrostat] 0.4 mg SUBLINGUAL Q5M PRN #3 tab 11/29/17 10/12/18 Rx Fluticasone Nasal [place] [Flonase 1 spray EA NOSTRIL DAILY 08/28/18 10/12/18 History Nasal [place]] Omeprazole 20 mg PO DAILY 08/28/18 10/12/18 History traZODone HCL 50 mg PO HS 08/28/18 10/12/18 History Atorvastatin [Lipitor] 80 mg PO DAILY #90 tab 08/29/18 10/12/18 Rx Citalopram Hydrobromide [CeleXA] 20 mg PO DAILY #30 tablet 08/29/18 10/12/18 Rx Clopidogrel [Plavix] 75 mg PO DAILY #30 tab 08/29/18 10/12/18 Rx Lisinopril 40 mg PO DAILY #90 tablet 08/29/18 10/12/18 Rx Metoprolol Tartrate [Lopressor] 50 mg PO BID #180 tab 08/29/18 10/12/18 Rx amLODIPine [Norvasc] 5 mg PO DAILY #90 tab 08/29/18 10/12/18 Rx Allergies Allergy/AdvReac Type Severity Reaction Status Date / Time No Known Allergies Allergy Verified 10/12/18 10:57 Physical Exam Vitals: Vital Signs Temp Pulse Pulse Resp BP BP Pulse Ox 10/12/18 08:16 98.6 F 99 18 161/111 10/12/18 06:48 98.2 F 91 16 132/88 97 10/12/18 05:00 90 20 136/95 97 10/12/18 04:00 93 20 113/79 97 10/12/18 03:00 78 20 129/88 97 10/12/18 02:00 98.2 F 91 20 126/72 99 10/12/18 01:00 98 F 97 20 133/73 97 10/12/18 00:00 98 F 100 20 139/89 97 10/11/18 23:34 100 16 121/83 97 10/11/18 23:17 98.1 F 112 H 20 126/82 97 10/11/18 22:16 97.4 F L 123 H 20 126/109 97 Intake and Output 10/11/18 10/12/18 10/12/18 22:59 06:59 14:59 Other: Weight 81.374 kg Constitutional: No acute distress, conversant, pleasant Eyes: Anicteric sclerae, moist conjunctiva, no lid-lag, PERRLA ENMT: NC/AT,Oropharynx clear, no erythema, exudates Neck:Supple, FROM, no masses, or JVD, No carotid bruits; No thyromegaly Lungs: Clear to auscultation, Clear to percussion, Normal respiratory effort, no accessory muscle use Cardiovascular: Heart regular in rate and rhythm, No murmurs, gallops, or rubs no peripheral edema Abdominal: Soft Nontender, nom distended, no guarding, no rebound or rigidity, Normoactive bowel sounds No hepatomegaly, No splenomegaly, No palpable mass No abdominal wall hernia noted Skin: Normal temperature, tone, texture, turgor, No induration No subcutaneous nodules, No rash, lesions, No ulcers Extremities:No digital cyanosis No clubbing, Pedal pulses intact and symmetrical Radial pulses intact and symmetrical Normal gait and station, No calf tenderness Psychiatric: Alert and oriented to person, place and time, Appropriate affect Intact judgement Neuro: Muscles Strength 5/5 in all 4 extremities, Sensation to light touch gr ossly present throughout, Cranial nerves II-XII grossly intact. No focal sensory deficits Cranial Nerve Examination - Cranial Nerves Cranial Nerve II- Optic: Intact Cranial Nerve III- Oculomotor: Intact Cranial Nerve IV- Trochlear: Intact Cranial Nerve V- Trigeminal: Intact Cranial Nerve - Abducens: Intact Cranial Nerve VII- Facial: Intact Cranial Nerve VIII- Auditory: Intact Cranial Nerve IX- Glossopharyngeal: Intact Cranial Nerve X- Vagus: Intact Cranial Nerve XI- Accessory: Intact Cranial Nerve XII- Hypoglossal: Intact Results CBC & Chem 7: 10/11/18 22:35 10/11/18 22:35 Labs: Abnormal Lab Results - Last 24 Hours (Table) 10/11/18 10/11/18 Range/Units 22:35 22:35 RBC 4.05 L (4.30-5.90) m/uL MCV 106.2 H D (80.0-100.0) fL RDW 16.0 H (11.5-15.5) % Carbon Dioxide 21 L (22-30) mmol/L BUN 3 L (9-20) mg/dL Glucose 154 H (74-99) mg/dL ALT 14 L (21-72) U/L Total Protein 5.9 L (6.3-8.2) g/dL Albumin 3.3 L (3.5-5.0) g/dL Serum Alcohol 213 H* mg/dL Thrombosis Risk Factor Assmnt - Choose All That Apply Any of the Below Risk Factors Present?: Yes Each Factor Represents 1 point: Age 41-60 years Other Risk Factors: No Other congenital or acquired thrombophilia - If yes, enter type in comment: No Thrombosis Risk Factor Assessment Total Risk Factor Score: 1 Thrombosis Risk Factor Assessment Level: Low Risk Assessment and Plan (1) Alcohol intoxication Current Visit: Yes Status: Acute Code(s): F10.929 - ALCOHOL USE, UNSPECIFIED WITH INTOXICATION, UNSPECIFIED SNOMED Code(s): 36303981 (2) Attempted suicide Current Visit: Yes Status: Acute Code(s): T14.91XA - SUICIDE ATTEMPT, INITIAL ENCOUNTER SNOMED Code(s): 33619175 (3) Coronary artery disease Current Visit: No Status: Acute Code(s): I25.10 - ATHSCL HEART DISEASE OF [place] CORONARY ARTERY W/O ANG PCTRS SNOMED Code(s): 46793654 (4) History of ischemic heart disease Current Visit: No Status: Acute Code(s): Z86.79 - PERSONAL HISTORY OF OTHER DISEASES OF THE CIRCULATORY SYSTEM SNOMED Code(s): 654187454 (5) History of myocardial infarction Current Visit: No Status: Acute Code(s): I25.2 - OLD MYOCARDIAL INFARCTION SNOMED Code(s): 208031469 (6) Hyperlipidemia Current Visit: No Status: Acute Code(s): E78.5 - HYPERLIPIDEMIA, UNSPECIFIED SNOMED Code(s): 66598512 (7) Hypertension Current Visit: No Status: Acute Code(s): I10 - ESSENTIAL (PRIMARY) HYPERTENSION SNOMED Code(s): 68242672 Plan: The patient is admitted to the mental health unit for acute inpatient hospitalization secondary to suicidal attempt with ongoing depression, will plan to defer all acute inpatient psychotropic management along with cognitive behavioral therapy to the admitting primary team. the patient has medical comorbidities including coronary disease history of [place] essential hypertension dyslipidemia. Patient's blood pressure is currently elevated as a patient has been noncompliant with his medical regimen. We'll plan to start restart his home medications including his Norvasc and lisinopril and metoprolol statin therapy Plavix and aspirin. We'll continue to follow his clinical course. I appreciate opportunity being involved in this patient's care, for any further questions please not hesitate to contact the sound inpatient team. Time with Patient: Greater than 30
[2018-10-12] MEDS: amLODIPine 5 MG TAB PO SCH (15:04)
[2018-10-12] MEDS: FLUoxetine HCL 20 MG CAP PO SCH (21:13)
[2018-10-12] MEDS: METOPROLOL TARTRATE 50 MG TAB PO SCH (21:14)
[2018-10-12] MEDS: OLANZapine 5 MG TAB PO SCH (21:14)
--- NOTE | 2018-10-12 23:55 | HP ---
HISTORY AND PHYSICAL DATE OF SERVICE: 10/12/2018. IDENTIFYING DATA: The patient is a 53-year-old male. He lives with his . He was brought to the emergency room via ambulance, then referred through the emergency room for evaluation. CHIEF COMPLAINT: The patient was depressed and had made a suicide attempt by running his car in a closed garage for 5 hours in an attempt to asphyxiate himself. HISTORY OF CURRENT ILLNESS: The patient was the primary source of information and provided very little information regarding his current situation. Most of the information obtained is from the medical record. As noted, the patient had attempted to asphyxiate himself. He apparently had been running his car in his garage for 4 to 5 hours. The was not fully cooperative when he got to the emergency room. He made statements that he was angry that he had failed. He had admitted that he had been drinking alcohol. His alcohol level in the emergency room was 213. There were no other abusive substances identified on urine drug screen. The patient was admitted on petition by his for involuntary hospitalization based on his suicide attempt. His had found him sleeping apparently in his car. The patient became aggressive towards the when she called 911, backing her up against the door and making threatening gestures. The patient has had increasing depression over the last 6 months with a primary stressor being that his began making indications that she was seeking divorce. The patient himself denied hallucinations or delusions. He was vague about any past trauma or posttraumatic issues. He was vague about anxiety and panic symptoms. He has had a prior suicide attempt by overdose with pills. He had a recent hospitalization for chest pain, which apparently was an additional stressor. He has been noncompliant with medications. He apparently has been sleeping poorly. He has loss of motivation energy and interest. Current psychotropic medications include Celexa 20 mg a day and trazodone 50 mg at bedtime. The patient was vague about whether or not he continued to have suicide thoughts during my interview. He is admitted for further evaluation. SUBSTANCE USE HISTORY: Positive for alcohol and alcohol level of 213 when seen in the emergency room. Patient reported past use of marijuana. PAST MEDICAL HISTORY/REVIEW OF SYSTEMS: As per medical consultation of Dr. Stockton. FAMILY AND SOCIAL HISTORY: The only information available is that the patient lives with his . There has been ongoing marital discord. There was no identified family psychiatric history. MENTAL STATUS EXAM: Patient was lying in bed. He declined getting up and coming to the office. He gave fair to poor eye contact. Psychomotor activity was slow. Speech was monotone. He answered questions with brief responses. He did not say much. He did sit up in bed briefly during the interview, though laid back down toward the end of the interview. His affect was flat, his mood withdrawn. He appeared significantly distressed. There was no outward evidence of thought disorder. He appeared oriented and alert and aware of circumstances. PHYSICAL EXAM: As per Dr. Stockton. ASSESSMENT: A 53-year-old male diagnosed with major depression. He apparently has a history of depression with a past suicide attempt. There is ongoing marital stress. Other precipitating factors are unclear. ADMISSION DIAGNOSES: 1. Major depression, recurrent, severe, without psychotic features. 2. Alcohol intoxication. 3. Suicide attempt by asphyxiation. 4. Coronary artery disease. 5. History of ischemic heart disease. 6. History of myocardial infarction. 7. Hyperlipidemia. 8. Hypertension. RECOMMENDATIONS: Patient will be admitted for comprehensive medical psychiatric and psychosocial evaluation will engage the patient in individual and group therapeutic activities. I will start the patient on Prozac 20 mg a day for indication of major depression, recurrent severe. I will start the patient on Zyprexa 5 mg twice a day. The aim of Zyprexa to help augment his antidepressant as well as to treat physiologic stress response relating to his apparent high stressed state precipitating his significant actions towards suicide. In addition Zyprexa may help lessen early acute withdrawal symptoms from alcohol if that is a significant issue. We will monitor for withdrawal issues. Will make an effort to get further input from the patient's . We will focus on stabilization and discharge planning. MMODL / IJN: [id number] /
[2018-10-13] MEDS: OLANZapine 5 MG TAB PO SCH ×2 (08:28→21:46)
[2018-10-13] MEDS: amLODIPine 5 MG TAB PO SCH (08:28)
[2018-10-13] MEDS: CLOPIDOGREL 75 MG TAB PO SCH (08:28)
[2018-10-13] MEDS: FLUoxetine HCL 20 MG CAP PO SCH (08:28)
[2018-10-13] MEDS: PANTOPRAZOLE 40 MG TABLET PO SCH (08:28)
[2018-10-13] MEDS: METOPROLOL TARTRATE 50 MG TAB PO SCH ×2 (08:28→21:46)
[2018-10-13] MEDS: ATORVASTATIN 80 MG TAB PO SCH (08:28)
[2018-10-13] MEDS: LISINOPRIL 20 MG TAB PO SCH (08:28)
[2018-10-13] MEDS: NICOTINE 21MG/24HR PATCH TRANSDERM SCH (08:28)
--- NOTE | 2018-10-13 20:42 | PN ---
PROGRESS NOTE DATE OF SERVICE : 10/13/2018 CHIEF COMPLAINT: The patient was depressed and had made a suicide attempt by running his car in a closed garage for 5 hours in an attempt to asphyxiate himself. INTERVAL HISTORY: Patient has been doing fair. He had a quiet evening last night. He tends to isolate. He did come out some, though he does not interact much with others. He slept fairly well at night. He said he is feeling better today than he was yesterday. He has not attended any groups since admission. He has been out a little bit more though he does not interact much with others. We reviewed his history. He noted that full he has had significant problems in the past with alcohol. He said that at the time that his filed for divorce, which was about 4 months ago he stopped drinking altogether and has not been drinking since he talked about the stress he has been under in dealing with the impending divorce issues. He said that he is looking at losing a significant amount of money in the divorce process. He and his had been for years. He said the biggest stress has been all about particulars of the divorce. In regards to his suicide attempt, he said he went in the garage and turned the car on. He sat there for 5 hours, though noted that there were no real changes. He assumed that the garage was too well ventilated, so he ended up shutting the car off. He went back to the house. He fell asleep on the couch, which is where his found him. He was somewhat unclear about what the factors were that led to the divorce. He said he did not feel his really made any clear indications regarding this. He does acknowledge that he had a long history of alcohol use. He said that he did not have any problem drinking. By his assessment He would drink about 3 cans of alcohol per day in the evening time after work. He said it never affected his work or function. Overall, he feels that his mood is somewhat improved. Anxiety is left. He tolerates his psychotropic medications. MENTAL STATUS: Patient gave fair eye contact. Psychomotor activity was slowed. Speech was monotone. He answered questions with brief responses. He was not too spontaneous or interactive. His affect was somewhat constricted. His mood was quiet. He appears somewhat distressed. There was no indication of thought disorder. Cognition was clear. ASSESSMENT: I will continue current diagnosis and treatment plan. I will continue psychotropic medications the same. Patient appears to be making progress. We will focus on stabilization and discharge planning. I discussed discharge issues with the patient. We talked about referral options for followup that would be clarified on Monday. RODRIGUEZ / MARYANNE: [id number] / MTDJoann
[2018-10-14] MEDS: amLODIPine 5 MG TAB PO SCH (09:02)
[2018-10-14] MEDS: NICOTINE 21MG/24HR PATCH TRANSDERM SCH (09:02)
[2018-10-14] MEDS: METOPROLOL TARTRATE 50 MG TAB PO SCH ×2 (09:05→21:47)
[2018-10-14] MEDS: PANTOPRAZOLE 40 MG TABLET PO SCH (09:05)
[2018-10-14] MEDS: FLUoxetine HCL 20 MG CAP PO SCH (09:05)
[2018-10-14] MEDS: OLANZapine 5 MG TAB PO SCH ×2 (09:05→21:47)
[2018-10-14] MEDS: LISINOPRIL 20 MG TAB PO SCH (09:05)
[2018-10-14] MEDS: ATORVASTATIN 80 MG TAB PO SCH (09:43)
[2018-10-14] MEDS: CLOPIDOGREL 75 MG TAB PO SCH (09:43)
--- NOTE | 2018-10-14 21:37 | PN ---
DATE OF SERVICE : 10/14/2018 PROGRESS NOTE CHIEF COMPLAINT: The patient was depressed and had made a suicide attempt by running his car in a closed garage for 5 hours in an attempt to asphyxiate himself. INTERVAL HISTORY: Patient has been doing fair. He had a quiet evening last night. He mostly keeps to himself. He spends a fair amount of time in his room. He does not interact much with others. He slept fairly well last night. Today he has been up. He does come out in the day area some. He attended 1 group today, which was his first group since he has been admitted. He seemed to be attentive in the group. He continues to be quite down in his mood. He has not been voicing thoughts of self harm. He has been cooperative. He seems to be showing just a little more energy and less withdrawal than they had been. He tolerates his psychotropic medications. MENTAL STATUS: The patient gave fair eye contact. Psychomotor activity was slowed. Speech was monotone. He answered questions with brief responses. He did not say a lot. His affect was flat. His mood withdrawn. He was moderately distressed. There was no indication for thought disorder. Cognition was clear. ASSESSMENT: I will continue the current diagnosis and treatment plan. I will continue psychotropic medications the same. I reviewed his psychotropics. We discussed indications, side effect and dosing issues relating to his antidepressant and antipsychotic. We will continue to focus on stabilization and discharge planning. RODRIGUEZ / MARYANNE: [id number] / MTDD
[2018-10-15 07:32] LABS: Amorphous Sediment,Urine Few /hpf; Appearance,Urine Turbid (Clear); Bilirubin,Urine Negative (Negative); Blood,Urine Negative (Negative); Color,Urine Yellow; Glucose,Urine (UA) Negative (Negative); Ketones,Urine Negative (Negative); Leukocyte Esterase,Urine Trace (Negative); Nitrite,Urine Negative (Negative); Protein,Urine Negative (Negative); Specific Gravity,Urine 1.013 (1.001-1.035); Squamous Epithelial Cell,Urine 1 /hpf (0-4); WBC,Urine 5 /hpf (0-5)
[2018-10-15] MEDS: OLANZapine 5 MG TAB PO SCH (08:19)
[2018-10-15] MEDS: METOPROLOL TARTRATE 50 MG TAB PO SCH ×2 (08:19→19:54)
[2018-10-15] MEDS: PANTOPRAZOLE 40 MG TABLET PO SCH (08:19)
[2018-10-15] MEDS: CLOPIDOGREL 75 MG TAB PO SCH (08:19)
[2018-10-15] MEDS: ATORVASTATIN 80 MG TAB PO SCH (08:19)
[2018-10-15] MEDS: NICOTINE 21MG/24HR PATCH TRANSDERM SCH (08:19)
[2018-10-15] MEDS: amLODIPine 5 MG TAB PO SCH (08:19)
[2018-10-15] MEDS: LISINOPRIL 20 MG TAB PO SCH (08:20)
[2018-10-15] MEDS: FLUoxetine HCL 20 MG CAP PO SCH (08:20)
--- NOTE | 2018-10-15 13:56 | PN ---
PROGRESS NOTE DATE OF SERVICE: 10/15/2018. CHIEF COMPLAINT: The patient was depressed and had made a suicide attempt by running his car in a closed garage for 5 hours in an attempt to fixate himself. INTERVAL HISTORY: Patient has been doing fair. He had a quiet evening last night. He comes out in the day area to some extent. He has tended to isolate himself, though he has seemed to be doing a little bit better last evening being out and in social areas. He slept well last night. Today he has been up. He had not made much effort to attend groups, though attended 1 group yesterday. Today, he has attended both the groups so far. He has been a little more social. He has a somewhat better outlook. He continues to have a reserved manner. He has had some contact with his . Apparently, there were issues with police at his house. He asked his to get some clarification on what happened. He said he felt relieved that things were not as bad as what he was worried about. He did not go into details. He continues to have a reserved manner though overall seems to be a little more positive in his mood. He tolerates his psychotropic medications. MENTAL STATUS: Patient gave fair eye contact. Psychomotor activity was slowed. Speech was monotone. He answered questions with direct responses. His thoughts were clear. His affect was somewhat constricted. His mood was quiet. He did appear to be distressed. ASSESSMENT: I will continue the current diagnosis and treatment plan. I will reduce his Zyprexa, he is currently on 5 mg twice a day. I will go down to 7.5 mg just at bedtime. He will continue Prozac 20 mg a day. Patient appears to be making progress. I reviewed discharge planning. I anticipate the patient being discharged in the next few days. We will continue to focus on stabilization and setting up followup care. MMODL / IJN: [id number] /
[2018-10-15] MEDS ORDERED: OLANZapine 5 MG TAB PO SCH (21:00)
[2018-10-16] MEDS: NICOTINE 21MG/24HR PATCH TRANSDERM SCH (09:57)
[2018-10-16] MEDS: PANTOPRAZOLE 40 MG TABLET PO SCH (09:57)
[2018-10-16] MEDS: METOPROLOL TARTRATE 50 MG TAB PO SCH ×2 (09:57→20:13)
[2018-10-16] MEDS: ATORVASTATIN 80 MG TAB PO SCH (09:57)
[2018-10-16] MEDS: CLOPIDOGREL 75 MG TAB PO SCH (09:58)
[2018-10-16] MEDS: FLUoxetine HCL 20 MG CAP PO SCH (09:58)
[2018-10-16] MEDS: amLODIPine 5 MG TAB PO SCH (09:58)
[2018-10-16] MEDS: LISINOPRIL 20 MG TAB PO SCH (09:58)
--- NOTE | 2018-10-16 14:46 | P.PN ---
Subjective Progress Note Date: 10/16/18 Principal diagnosis: Major depressive disorder recurrent severe without psychotic features, alcohol use disorder severe, suicide attempt by asphyxiation, coronary artery disease 10/16/2018: chart reviewed and discussed with team. Interviewed patient and he admits to depression and anxiety with a recent second suicide attempt but denies SI/HI. Racing thoughts and tense and irritable. Objective - Vital Signs Vital signs: Vital Signs Temp 97.8 F 10/16/18 09:55 Pulse 82 10/16/18 09:55 Resp 18 10/16/18 09:55 BP 122/84 10/16/18 09:55 Pulse Ox 97 10/12/18 06:48 - Labs CBC & Chem 7: 10/11/18 22:35 10/11/18 22:35 Assessment and Plan (1) Major depressive disorder without psychotic features Narrative/Plan: Identifying data: This is a 53-year-old male. He lives with his . He is brought to the emergency room via ambulance referred through the emergency room for evaluation. Chief complaint: The patient was depressed and had made suicide attempt by running his car in a closed garage for 5 hours and intent to kill himself. History of current illness The patient is primary source of information: Information. His current situation. Most information obtained from medical record. He had been admitted and told us that he had been drinking alcohol. His blood alcohol level emergency room was 213. The patient was admitted on petition by his for involuntary hospitalization based on suicide attempt. His had found him sleeping apparently in the car. The patient had increasing depression over the last 6 months with primary stressor being that his began making indication she was seeking divorce. The patient himself denied hallucinations or delusion. He was vague about any post trauma or posttraumatic issues. He is vague about anxiety and panic symptoms. Prior suicide attempt by overdose with pills. He had a recent hospitalization for chest pain. Mental status examination: This is a 53-year-old male who was able to answer questions and has fair to poor eye contact. He has psychomotor retardation. Speech was monotone in nature. Absent questions in a brief response. He did sit up and answer questions during the interview. His affect is flat restricted depressed and withdrawn. Appears significantly distressed. He is oriented to person place and time and situation miller in the hospital. Plan: Today was going for deferral.which he did today. The discontinue his Zyprexa and Invega 3 mg by mouth daily at bedtime in addition turned 50 mg of Depakote for his racing thoughts and mood instability and continue the fluoxetine. Remains on 15 minute checks as per usual on the psychiatric unit. Current Visit: Yes Status: Acute Priority: Medium Code(s): F32.9 - MAJOR DEPRESSIVE DISORDER, SINGLE EPISODE, UNSPECIFIED SNOMED Code(s): 262591880 Time with Patient: Less than 30
[2018-10-16] MEDS ORDERED: PALIPERIDONE 3 MG TAB.ER.24 PO SCH (21:00)
[2018-10-16] MEDS ORDERED: DIVALPROEX ER 250 MG TAB.ER.24H PO SCH (21:00)
[2018-10-17] MEDS: NICOTINE 21MG/24HR PATCH TRANSDERM SCH (09:00)
[2018-10-17] MEDS: amLODIPine 5 MG TAB PO SCH (09:01)
[2018-10-17] MEDS: ATORVASTATIN 80 MG TAB PO SCH (09:01)
[2018-10-17] MEDS: METOPROLOL TARTRATE 50 MG TAB PO SCH ×2 (09:01→21:18)
[2018-10-17] MEDS: PANTOPRAZOLE 40 MG TABLET PO SCH (09:01)
[2018-10-17] MEDS: CLOPIDOGREL 75 MG TAB PO SCH (09:01)
[2018-10-17] MEDS: LISINOPRIL 20 MG TAB PO SCH (09:01)
[2018-10-17] MEDS: FLUoxetine HCL 20 MG CAP PO SCH (09:02)
[2018-10-17] MEDS ORDERED: ASPIRIN 325 MG TAB PO STA (10:39)
--- NOTE | 2018-10-17 14:37 | P.PN ---
Subjective Progress Note Date: 10/17/18 Principal diagnosis: Major depressive disorder recurrent severe without psychotic features, alcohol use disorder severe, suicide attempt by asphyxiation, coronary artery disease 10/16/2018: chart reviewed and discussed with team. Interviewed patient and he admits to depression and anxiety with a recent second suicide attempt but denies SI/HI. Racing thoughts and tense and irritable. X 10/17/2018: Chart reviewed and discussed with nursing staff, social work and team this morning. Interviewed patient and he admits to be less depressed today no suicidal homicidal ideation, thinking less about the divorce and is adapting to therapeutic yao milieu environment. He denies any auditory or visual hallucinations. He has less racing thoughts today. He has a flat affect and is able to express his emotions today without being angry irritable or agitated. Objective - Vital Signs Vital signs: Vital Signs Temp 98.6 F 10/17/18 05:25 Pulse 74 10/17/18 05:25 Resp 18 10/17/18 05:25 BP 136/93 10/17/18 05:25 Pulse Ox 94 L 10/17/18 05:25 - Labs CBC & Chem 7: 10/11/18 22:35 10/11/18 22:35 Assessment and Plan (1) Major depressive disorder without psychotic features Narrative/Plan: Identifying data: This is a 53-year-old male. He lives with his . He is brought to the emergency room via ambulance referred through the emergency room for evaluation. Chief complaint: The patient was depressed and had made suicide attempt by running his car in a closed garage for 5 hours and intent to kill himself. History of current illness The patient is primary source of information: Information. His current situation. Most information obtained from medical record. He had been admitted and told us that he had been drinking alcohol. His blood alcohol level emergency room was 213. The patient was admitted on petition by his for involuntary hospitalization based on suicide attempt. His had found him sleeping apparently in the car. The patient had increasing depression over the last 6 months with primary stressor being that his began making indication she was seeking divorce. The patient himself denied hallucinations or delusion. He was vague about any post trauma or posttraumatic issues. He is vague about anxiety and panic symptoms. Prior suicide attempt by overdose with pills. He had a recent hospitalization for chest pain. Mental status examination: This is a 53-year-old male who was able to answer questions and has fair to poor eye contact. He has psychomotor retardation. Speech was monotone in nature. Absent questions in a brief response. He did sit up and answer questions during the interview. His affect is flat restricted depressed and withdrawn. Appears significantly distressed. He is oriented to person place and time and situation mill[facility] in the hospital. Plan: Today was going for deferral.which he did today. The discontinue his Zyprexa and Invega 3 mg by mouth daily at bedtime in addition 150 mg of Depakote for his racing thoughts and mood instability and continue the fluoxetine. Remains on 15 minute checks as per usual on the psychiatric unit. 10/17/2018: He remains on 15 minute checks his usual protocol for the unit. He still has some racing thoughts will increase his Invega to 6 mg by mouth daily at bedtime and increase Depakote to 500 mg by mouth daily at bedtime. He will remain on fluoxetine. He's integrating well in the yao milieu therapeutic environment and seems to be tolerating peers although he had a reaction to one of the patients kicking the Bible's morning and they almost got into an al tercation but he was able to contain himself and not get involved. Current Visit: Yes Status: Acute Priority: Medium Code(s): F32.9 - MAJOR DEPRESSIVE DISORDER, SINGLE EPISODE, UNSPECIFIED SNOMED Code(s): 121111977 Time with Patient: Less than 30
--- NOTE | 2018-10-17 19:33 | P.PN ---
Subjective Progress Note Date: 10/17/18 (Delayed charting patient seen at approximately 11:30.) Principal diagnosis: Chest pain Patient states that was going he began having chest pain. It was left-sided without radiation, associated with some shortness of breath, some numbness in his left hand, and some pain up in his chest. He felt that it was sort of similar to his prior myocardial infarctions. He denied any vomiting but did feel slightly nauseous. He denies any lightheadedness or dizziness. He did not have any diaphoresis. He states he laid down and the chest pain went away and he felt back to his normal self. He now reports that he thinks it was anxiety. He did take an aspirin. Objective - Vital Signs Vital signs: Vital Signs Temp 98.6 F 10/17/18 05:25 Pulse 74 10/17/18 05:25 Resp 18 10/17/18 05:25 BP 136/93 10/17/18 05:25 Pulse Ox 94 L 10/17/18 05:25 - Exam General: non toxic, no distress, appears at stated age Derm: warm, dry Head: atraumatic, normocephalic, symmetric Eyes: EOMI, no lid lag, anicteric sclera Mouth: no lip lesion, mucus membranes moist Cardiovascular: S1S2 reg, no murmur, positive posterior tibial pulse bilateral, chest pain not reproducible Lungs: CTA bilateral, no rhonchi, no rales , no accessory muscle use Abdominal: soft, nontender to palpation, no guarding, no appreciable organomegaly Ext: no gross muscle atrophy, no edema, no contractures Neuro: CN II-XI grossly intact, no focal neuro deficits Psych: Alert, oriented, appropriate affect - Labs CBC & Chem 7: 10/11/18 22:35 10/11/18 22:35 Assessment and Plan Assessment: Chest pain, likely noncardiac -EKG without any signs of acute ischemia -Troponin negative, repeat troponin negative -Likely related to anxiety Hypertension, controlled -Lisinopril, metoprolol, Norvasc Coronary artery disease -Continue Plavix and Lipitor Dyslipidemia -Lipitor Thank you for allowing us to participate in the care of this patient. We will follow peripherally. Do not hesitate to contact us with questions. Someone can be reached from the [facility] hospitalist group at all hours of the day at [phone].
[2018-10-17] MEDS ORDERED: DIVALPROEX ER 500 MG TAB.ER.24H PO SCH (21:00)
[2018-10-17] MEDS: PALIPERIDONE 6 MG TAB.ER.24 PO SCH (21:18)
[2018-10-18] MEDS: NICOTINE 21MG/24HR PATCH TRANSDERM SCH (09:43)
[2018-10-18] MEDS: METOPROLOL TARTRATE 50 MG TAB PO SCH ×2 (09:43→21:26)
[2018-10-18] MEDS: FLUoxetine HCL 20 MG CAP PO SCH (09:44)
[2018-10-18] MEDS: amLODIPine 5 MG TAB PO SCH (09:44)
[2018-10-18] MEDS: PANTOPRAZOLE 40 MG TABLET PO SCH (09:44)
[2018-10-18] MEDS: LISINOPRIL 20 MG TAB PO SCH (09:44)
[2018-10-18] MEDS: ATORVASTATIN 80 MG TAB PO SCH (09:45)
[2018-10-18] MEDS: CLOPIDOGREL 75 MG TAB PO SCH (09:45)
--- NOTE | 2018-10-18 11:43 | P.PN ---
Subjective Progress Note Date: 10/18/18 Principal diagnosis: Major depressive disorder recurrent severe without psychotic features, alcohol use disorder severe, suicide attempt by asphyxiation, coronary artery disease 10/16/2018: chart reviewed and discussed with team. Interviewed patient and he admits to depression and anxiety with a recent second suicide attempt but denies SI/HI. Racing thoughts and tense and irritable. X 10/17/2018: Chart reviewed and discussed with nursing staff, social work and team this morning. Interviewed patient and he admits to be less depressed today no suicidal homicidal ideation, thinking less about the divorce and is adapting to therapeutic yao milieu environment. He denies any auditory or visual hallucinations. He has less racing thoughts today. He has a flat affect and is able to express his emotions today without being angry irritable or agitated. 10/18/2018:chart reviewed, discussed with nursing staff, Interviewed patient. Denies SI/HI. Depressed sad and overwhelmed. Objective - Vital Signs Vital signs: Vital Signs Temp 97.9 F 10/18/18 04:52 Pulse 65 10/18/18 04:52 Resp 16 10/18/18 04:52 BP 138/81 10/18/18 04:52 Pulse Ox 94 L 10/17/18 05:25 - Labs CBC & Chem 7: 10/11/18 22:35 10/11/18 22:35 Assessment and Plan (1) Major depressive disorder without psychotic features Narrative/Plan: Identifying data: This is a 53-year-old male. He lives with his . He is brought to the emergency room via ambulance referred through the emergency room for evaluation. Chief complaint: The patient was depressed and had made suicide attempt by running his car in a closed garage for 5 hours and intent to kill himself. History of current illness The patient is primary source of information: Information. His current situation. Most information obtained from medical record. He had been admitted and told us that he had been drinking alcohol. His blood alcohol level emergency room was 213. The patient was admitted on petition by his for involuntary hospitalization based on suicide attempt. His had found him sleeping apparently in the car. The patient had increasing depression over the last 6 months with primary stressor being that his began making indication she was seeking divorce. The patient himself denied hallucinations or delusion. He was vague about any post trauma or posttraumatic issues. He is vague about anxiety and panic symptoms. Prior suicide attempt by overdose with pills. He had a recent hospitalization for chest pain. Mental status examination: This is a 53-year-old male who was able to answer questions and has fair to poor eye contact. He has psychomotor retardation. Speech was monotone in nature. Absent questions in a brief response. He did sit up and answer questions during the interview. His affect is flat restricted depressed and withdrawn. Appears significantly distressed. He is oriented to person place and time and situation miller in the hospital. Plan: Today was going for deferral.which he did today. The discontinue his Zyprexa and Invega 3 mg by mouth daily at bedtime in addition 150 mg of Depakote for his racing thoughts and mood instability and continue the fluoxetine. Remains on 15 minute checks as per usual on the psychiatric unit. 10/17/2018: He remains on 15 minute checks his usual protocol for the unit. He still has some racing thoughts will increase his Invega to 6 mg by mouth daily at bedtime and increase Depakote to 500 mg by mouth daily at bedtime. He will remain on fluoxetine. He's integrating well in the yao milieu therapeutic environment and seems to be tolerating peers although he had a reaction to one of the patients kicking the Bible's morning and they almost got into an altercation but he was able to contain himself and not get involved. 10/18/2018: remains on 15 minutes checks. Increase depakote 750 mg er and maintain invega 6 mg and prozac 20 mg. Current Visit: Yes Status: Acute Priority: Low Code(s): F32.9 - MAJOR DEPRESSIVE DISORDER, SINGLE EPISODE, UNSPECIFIED SNOMED Code(s): 927424068 Time with Patient: Less than 30
[2018-10-18] MEDS ORDERED: DIVALPROEX ER 250 MG TAB.ER.24H PO SCH (21:00)
[2018-10-18] MEDS: PALIPERIDONE 6 MG TAB.ER.24 PO SCH (21:26)
[2018-10-19 05:44] VITALS: RESP 18; TEMP 98.1
[2018-10-19 09:37] VITALS: BP 128/73; PULSE 85
[2018-10-19] MEDS: amLODIPine 5 MG TAB PO SCH (09:37)
[2018-10-19] MEDS: CLOPIDOGREL 75 MG TAB PO SCH (09:37)
[2018-10-19] MEDS: LISINOPRIL 20 MG TAB PO SCH (09:37)
[2018-10-19] MEDS: FLUoxetine HCL 20 MG CAP PO SCH (09:37)
[2018-10-19] MEDS: METOPROLOL TARTRATE 50 MG TAB PO SCH (09:38)
[2018-10-19] MEDS: NICOTINE 21MG/24HR PATCH TRANSDERM SCH (09:38)
[2018-10-19] MEDS: PANTOPRAZOLE 40 MG TABLET PO SCH (09:38)
[2018-10-19] MEDS: ATORVASTATIN 80 MG TAB PO SCH (09:38)
--- NOTE | 2018-10-19 11:37 | P.DS ---
Providers Date of admission: 10/12/18 07:28 Expected date of discharge: 10/19/18 Attending physician: Kel Vasquez DO Consults: 10/12/18 07:39 Consult Physician Routine Consulting Provider: Cosmo Duran Consult Reason/Comments: history and physical and order medical meds Do you want consulting provider notified?: Already Contacted Primary care physician: Mona Lora - Discharge Diagnosis(es) (1) Major depressive disorder without psychotic features Major depressive disorder recurrent severe without psychotic features, alcohol use disorder severe, suicide attempt by asphyxiation, coronary artery disease 10/16/2018: chart reviewed and discussed with team. Interviewed patient and he admits to depression and anxiety with a recent second suicide attempt but denies SI/HI. Racing thoughts and tense and irritable. Objective - Vital Signs Vital signs: Vital Signs Temp 97.8 F 10/16/18 09:55 Pulse 82 10/16/18 09:55 Resp 18 10/16/18 09:55 BP 122/84 10/16/18 09:55 Pulse Ox 97 10/12/18 06:48 - Labs CBC & Chem 7: 10/11/18 22:35 10/11/18 22:35 Assessment and Plan (1) Major depressive disorder without psychotic features Narrative/Plan: Identifying data: This is a 53-year-old male. He lives with his . He is brought to the emergency room via ambulance referred through the emergency room for evaluation. Chief complaint: The patient was depressed and had made suicide attempt by running his car in a closed garage for 5 hours and intent to kill himself. History of current illness The patient is primary source of information: Information. His current situation. Most information obtained from medical record. He had been admitted and told us that he had been drinking alcohol. His blood alcohol level emergency room was 213. The patient was admitted on petition by his for involuntary hospitalization based on suicide attempt. His had found him sleeping apparently in the car. The patient had increasing depression over the last 6 months with primary stressor being that his began making indication she was seeking divorce. The patient himself denied hallucinations or delusion. He was vague about any post trauma or posttraumatic issues. He is vague about anxiety and panic symptoms. Prior suicide attempt by overdose with pills. He had a recent hospitalization for chest pain. Mental status examination: This is a 53-year-old male who was able to answer questions and has fair to poor eye contact. He has psychomotor retardation. Speech was monotone in nature. Absent questions in a brief response. He did sit up and answer questions during the interview. His affect is flat restricted depressed and withdrawn. Appears significantly distressed. He is oriented to person place and time and situation miller in the hospital. Current Visit: Yes Status: Acute Priority: Low Hospital Course: Plan care 10/17/2018: He remains on 15 minute checks his usual protocol for the unit. He still has some racing thoughts will increase his Invega to 6 mg by mouth daily at bedtime and increase Depakote to 500 mg by mouth daily at bedtime. He will remain on fluoxetine. He's integrating well in the [facility] therapeutic environment and seems to be tolerating peers although he had a reaction to one of the patients kicking the [employer] morning and they almost got into an altercation but he was able to contain himself and not get involved. 10/18/2018: remains on 15 minutes checks. Increase depakote 750 mg er and maintain invega 6 mg and prozac 20 mg. Mental status examination at time of discharge 10/19/2018 at 11:35 AM The patient presents alert, pleasant, and cooperative. There calmly seated without any agitated behavior. [He] reports that [his] mood is good. Affect is congruent and euthymic. [He] deny having any suicidal or homicidal ideation intent or plan. [He] denies any auditory or visual hallucinations. There is no evidence of any delusional thought content. [His] thought process is linear and goal-directed. [His] speech is fluent and nonpressured. [His] memory and concentration is grossly intact for the purposes of this session. Patient Condition at Discharge: Serious Plan - Discharge Summary Discharge Rx Participant: Yes New Discharge Prescriptions: New Divalproex ER [Depakote ER] 750 mg PO 2100 30 Days #90 tab.er.24h Nicotine 21Mg/24Hr Patch [Habitrol] 1 patch TRANSDERM DAILY 30 Days #30 patch Paliperidone [Invega] 6 mg PO 2100 30 Days #30 tab.er.24 Pantoprazole [Protonix] 40 mg PO DAILY 30 Days #30 tablet. FLUoxetine HCL [PROzac] 20 mg PO DAILY 30 Days #30 cap Continue Fluticasone Nasal [place] [Flonase Nasal [place]] 1 spray EA NOSTRIL DAILY 30 Days #1 spr Atorvastatin [Lipitor] 80 mg PO DAILY #90 tab Lisinopril 40 mg PO DAILY #90 tablet Metoprolol Tartrate [Lopressor] 50 mg PO BID #180 tab Nitroglycerin Sl Tabs [Nitrostat] 0.4 mg SUBLINGUAL Q5M PRN #3 tab PRN Reason: Chest Pain amLODIPine [Norvasc] 5 mg PO DAILY #90 tab Clopidogrel [Plavix] 75 mg PO DAILY #30 tab Discontinued traZODone HCL 50 mg PO HS Omeprazole 20 mg PO DAILY Citalopram Hydrobromide [CeleXA] 20 mg PO DAILY #30 tablet Discharge Medication List Atorvastatin [Lipitor] 80 mg PO DAILY #90 tab 10/19/18 [Rx] Clopidogrel [Plavix] 75 mg PO DAILY #30 tab 10/19/18 [Rx] Divalproex ER [Depakote ER] 750 mg PO 2100 30 Days #90 tab.er.24h 10/19/18 [Rx] FLUoxetine HCL [PROzac] 20 mg PO DAILY 30 Days #30 cap 10/19/18 [Rx] Fluticasone Nasal [place] [Flonase Nasal [place]] 1 spray EA NOSTRIL DAILY 30 Days #1 spr 10/19/18 [Rx] Lisinopril 40 mg PO DAILY #90 tablet 10/19/18 [Rx] Metoprolol Tartrate [Lopressor] 50 mg PO BID #180 tab 10/19/18 [Rx] Nicotine 21Mg/24Hr Patch [Habitrol] 1 patch TRANSDERM DAILY 30 Days #30 patch 10/19/18 [Rx] Nitroglycerin Sl Tabs [Nitrostat] 0.4 mg SUBLINGUAL Q5M PRN #3 tab 10/19/18 [Rx] Paliperidone [Invega] 6 mg PO 2100 30 Days #30 tab.er.24 10/19/18 [Rx] Pantoprazole [Protonix] 40 mg PO DAILY 30 Days #30 tablet.dr 10/19/18 [Rx] amLODIPine [Norvasc] 5 mg PO DAILY #90 tab 10/19/18 [Rx] Follow up Appointment(s)/Referral(s): None,Stated [REFERRING] - 1-2 days Activity/Diet/Wound Care/Special Instructions: Activity and diet as tolerated. No guns or weapons in the home. Refrain from alcohol and drugs not prescribed by your physician. Take all medications as prescribed and attend all follow up appointments as scheduled. If in crisis, please call or go the nearest . If in need of medication refills, please to your primary care physician or go to your out patient psychiatric provider. Discharge Disposition: HOME SELF-CARE
== END 2018-10-19 13:57 | disposition home or self-care (01) | DRG 885 ==
LOC: EC 22:15 → 3MHU 10-12 07:28
PROVIDERS: ADMIT Psychiatry & Neurology Psychiatry; ATTEND Psychiatry & Neurology Psychiatry
DX: F33.2 Major depressive disorder, recurrent severe without psychotic features (principal); R45.851 Suicidal ideations; E78.5 Hyperlipidemia, unspecified; F10.129 Alcohol abuse with intoxication, unspecified; F17.200 Nicotine dependence, unspecified, uncomplicated; F41.9 Anxiety disorder, unspecified; I10 Essential (primary) hypertension; I25.10 Atherosclerotic heart disease of native coronary artery without angina pectoris; I25.2 Old myocardial infarction; M19.90 Unspecified osteoarthritis, unspecified site; R41.843 Psychomotor deficit; K57.90 Diverticulosis of intestine, part unspecified, without perforation or abscess without bleeding; Z91.14 Patient's other noncompliance with medication regimen; Z03.89 Encounter for observation for other suspected diseases and conditions ruled out; Z79.02 Long term (current) use of antithrombotics/antiplatelets; Z79.82 Long term (current) use of aspirin; Z79.899 Other long term (current) drug therapy; Z91.5 Personal history of self-harm; Z95.5 Presence of coronary angioplasty implant and graft; Z80.0 Family history of malignant neoplasm of digestive organs; Z82.49 Family history of ischemic heart disease and other diseases of the circulatory system; Z82.5 Family history of asthma and other chronic lower respiratory diseases; Z82.61 Family history of arthritis
CPT/HCPCS: 36415; 80053; 80061; 80306; 80320; 80329; 81001; 82375; 83036; 83520; 84443; 84484; 85025; 93005; 96361; 96372; 96374; 99285